=== PATIENT | female | born 1995 | race African-American/Black ===

== ENCOUNTER 2016-09-28 23:23 | Emergency (ER) | payer BC ==
[~2016-09-28] VITALS: Ht 162.6 cm; Wt 123.4 kg
[~2016-09-28 23:23] MED LIST: AMOX500C2 PO; CEFD300C3 PO; CEPH-507 PO; CEPH500C PO; CIPR500T78 PO; CLIN300C11 PO; CLIN300C3 PO; FLC100T1 PO; FLUC150T PO; HYDR-3812 PO; IBUP-1780 PO; INSU100I14 SC; INSU100I14 SQ; INSU100I29 SC; INSU100V16 SQ; INSU100V5 SQ; LEVE1U SQ; LISI10TA; MAGN400T6 PO; METF-380 PO; MNTL10T; NEOM10SO20 EACH EAR; NYST15CR3 TOP; RANI150T66; RSP2T PO; SERT50TA PO; SULF1TAB35 PO; TPR25T PO; ZPR80C PO
--- NOTE | 2016-09-28 23:39 | ED Lower Extremity ---
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 Has a laceration to the lateral aspect the sole of foot. No other injury Allergies and Home Medications Allergies Coded Allergies: vancomycin (Unverified Allergy, Unknown, 02/27/16) Home Medications Insulin Aspart 300 Units/3 Ml Solution, 25 UNITS SC AC, (Reported) Insulin Detemir 100 Unit/1 Ml Insuln.pen, 35 UNITS SC BID, (Reported) Constitutional: no symptoms reported Respiratory: no symptoms reported Skin: see HPI Past Iqgmqpn-Eaivmq-Gclifo Hx Patient Social History Recent Foreign Travel: No Contact w/Someone Who Travel: No Recent Hopitalizations: No Immunizations Up To Date PED Vaccines UTD: Yes Date of Pneumonia Vaccine: October 15, 2012 Date of Influenza Vaccine: Mar 02, 2016 Seasonal Allergies Seasonal Allergies: Yes Surgeries HX Surgeries: Yes (LEFT HIP, PLASTIC SURGERY TO FACE SECONDARY TO DOG BITE- "OVER 200 STITCHES") Surgeries: Orthopedic, Tonsillectomy Respiratory Hx Respiratory Disorders: No Cardiovascular Hx Cardiac Disorders: Yes (STOPPED BP MEDS 4 YRS AGO) Cardiac Disorders: Hypertension Neurological Hx Neurological Disorders: No Reproductive System Hx Reproductive Disorders: Yes (MISCARRIAGES) Female Reproductive Disorders: Denies Genitourinary Hx Genitourinary Disorders: No Gastrointestinal Hx Gastrointestinal Disorders: No Musculoskeletal Hx Musculoskeletal Disorders: Yes (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) Endocrine Hx Endocrine Disorders: Yes (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, MORBID OBESTIY) Endocrine Disorders: Diabetes, Insulin dep HEENT HX ENT Disorders: Yes (S/P TONSILLECTOMY) HEENT Disorders: Tonsilitis Cancer Hx Cancer: No Psychosocial Hx Psychiatric Problems: Yes Behavioral Health Disorders: Anxiety, Bipolar, Depression Integumentary HX Skin/Integumentary Disorder: No Blood Transfusions Hx Blood Disorders: No Adverse Reaction to a Blood Tr: No Reviewed Nursing Assessment Reviewed/Agree w Nursing PMH: Yes Family Medical History Significant Family History: Diabetes, Hypertension, Vascular Disease Family Medial History: Alcoholism Arthritis Asthma Cardiovascular disease Colon cancer Diabetes mellitus Hypertension Psychosocial problem Respiratory disorder Visual disorder Physical Exam Vital Signs Vital Sign - Last 12Hours 09/28/16 23:41 Temp 97.6 Pulse 125 Resp 18 B/P (MAP) 141/91 Pulse Ox 96 O2 Delivery Room Air Capillary Refill : General Appearance: WD/WN, no apparent distress Cardiovascular: regular rate, rhythm Respiratory: no respiratory distress Feet: left foot pain, left foot soft tissue tenderness, left foot swelling ( 2.5 cm laceration to the lateral aspect of the sole of the left foot.) Neurologic/Psychiatric: alert, normal mood/affect Skin: normal color Laceration Repair : Wound Location: Lower Extremities Other Wound Location Left foot Wound's Depth, Shape: sub Q Wound Explored: no foreign body removed Betadine Prep?: Yes Anesthesia: 1% Lidocaine Volume Anesthetic (ccs): 5 Wound Debrided: moderate Suture: Ethlion Suture Size: 4-0 Number of Sutures: 3 Sterile Dressing Applied?: Yes Progress Wound was prepped with Betadine. Irrigated with normal saline. It probes foreign body (no foreign body located). X-ray showed no foreign body. Wound closed with 3 4-0 nylon sutures. Progress/Results/Core Measures Results/Orders My Orders Orders - JOSE A PACK MD Foot, Left, 3 Views (09/28/16 23:35) Dipht,Pertuss(Acell),Tet Adult (Boostrix (09/28/16 23:45) Lidocaine 1% Injection (Xylocaine 1% Inj (09/29/16 00:45) Lidocaine 1% Injection (Xylocaine 1% Inj (09/29/16 00:34) Medications Given in ED Current Medications Medications Dose Ordered Sig/Samuel Route Start Time Stop Time Status Last Admin Dose Admin Diphtheria/ Tetanus/Acell Pertussis 0.5 ml ONCE ONCE IM 09/28/16 23:45 09/28/16 23:47 DC 09/29/16 00:24 0.5 ML Lidocaine HCl 20 ml ONCE ONCE INJ 09/29/16 00:45 09/29/16 00:46 DC 09/29/16 00:40 20 ML Vital Signs/I&O Vital Sign - Last 12Hours 09/28/16 23:41 Temp 97.6 Pulse 125 Resp 18 B/P (MAP) 141/91 Pulse Ox 96 O2 Delivery Room Air Departure Impression Impression: Primary Impression: Laceration of left foot Disposition: HOME, SELF-CARE Condition: Stable Departure-Patient Inst. Decision time for Depature: 00:50 Referrals: NO,LOCAL PHYSICIAN (PCP/Family) Primary Care Physician Patient Instructions: Laceration Repair With Stitches (DC) Add. Discharge Instructions: Keep foot elevated, bandaged, clean and dry. JOSE A PACK MD Sep 28, 2016 23:39
[2016-09-28] MEDS ORDERED: TETANUS,DIPTH,PERTUSS P/F (BOOSTRIX) 0.5 ML VIAL IM ONE (23:45)
[2016-09-29] MEDS ORDERED: LIDOCAINE 1% INJ 20 ML (XYLOCAINE) VIAL ONE (00:34)
[2016-09-29] MEDS ORDERED: LIDOCAINE 1% INJ 20 ML (XYLOCAINE) VIAL INJ ONE (00:45)
[2016-09-29 01:07] VITALS: BP 136/87
--- NOTE | 2016-09-29 07:02 | Diagnostic Imaging Report ---
INDICATION: Soft tissue laceration to the left heel. DISCUSSION: Three views of the left foot were obtained, no comparison. No radiopaque foreign body identified. Soft tissue laceration noted along the plantar aspect of the left foot. Benign soft tissue calcifications are noted within the anterior left lower extremity. No acute fracture or dislocation identified. No significant degenerative disease. IMPRESSION: 1. Soft tissue laceration involving the plantar aspect of the left foot. No radiopaque foreign body or acute osseous abnormality identified otherwise. Dictated by: Dictated on workstation # [id number]
== END 2016-09-29 01:07 | disposition home or self-care (01) ==
LOC: EDUNIT# 23:23 → ER 23:27
DX: S91.312A Laceration without foreign body, left foot, initial encounter (principal); Z23 Encounter for immunization; E11.9 Type 2 diabetes mellitus without complications; Z79.4 Long term (current) use of insulin; E66.01 Morbid (severe) obesity due to excess calories; W25.XXXA Contact with sharp glass, initial encounter; Y99.8 Other external cause status
CPT/HCPCS: 12042; 73630; 90471; 90715

== ENCOUNTER 2016-10-11 11:37 | Emergency (ER) | payer BC ==
[~2016-10-11] VITALS: Ht 160 cm; Wt 99.8 kg
[2016-10-11 11:53] VITALS: BP 135/89
== END 2016-10-11 11:53 | disposition home or self-care (01) ==
LOC: EDUNIT# 11:37 → ER 11:39
DX: S91.312D Laceration without foreign body, left foot, subsequent encounter (principal)

== ENCOUNTER 2016-12-22 17:55 | Emergency (ER) | payer BC ==
[~2016-12-22] VITALS: Ht 162.6 cm; Wt 129.7 kg
[2016-12-22] MEDS ORDERED: RX-CIPROFLOXACIN (CILOXAN) 0.3% OP SOLN 2.5 ML ONE (18:31)
--- NOTE | 2016-12-22 18:32 | ED EENT ---
History of Present Illness General Stated Complaint: LT EAR PAIN/PRESSURE Source: patient Exam Limitations: no limitations History of Present Illness Time seen by provider: 18:27 Initial Comments To ER with left ear pain for the past 3 days. No fevers or chills. Timing/Duration: abrupt Severity: moderate Location: ear (R) Associated Symptoms: denies symptoms Allergies and Home Medications Allergies Coded Allergies: vancomycin (Unverified Allergy, Unknown, 02/27/16) Home Medications Insulin Aspart 300 Units/3 Ml Solution, 25 UNITS SC AC, (Reported) Insulin Detemir 100 Unit/1 Ml Insuln.pen, 35 UNITS SC BID, (Reported) Review of Systems Constitutional: see HPI, No chills Eyes: No Symptoms Reported Ears: See HPI Nose: no symptoms reported Mouth: no symptoms reported Throat: no symptoms reported Respiratory: no symptoms reported Cardiovascular: no symptoms reported Musculoskeletal: no symptoms reported Past Vpkhvtw-Uplntc-Tseutw Hx Patient Social History 2nd Hand Smoke Exposure: No Recent Foreign Travel: No Contact w/Someone Who Travel: No Recent Hopitalizations: No Immunizations Up To Date Tetanus Booster (TDap): Unknown PED Vaccines UTD: Yes Date of Pneumonia Vaccine: October 15, 2012 Date of Influenza Vaccine: Mar 02, 2016 Seasonal Allergies Seasonal Allergies: Yes Surgeries HX Surgeries: Yes (LEFT HIP, PLASTIC SURGERY TO FACE SECONDARY TO DOG BITE- "OVER 200 STITCHES") Surgeries: Orthopedic, Tonsillectomy Respiratory Hx Respiratory Disorders: No Cardiovascular Hx Cardiac Disorders: Yes (STOPPED BP MEDS 4 YRS AGO) Cardiac Disorders: Hypertension Neurological Hx Neurological Disorders: No Reproductive System Hx Reproductive Disorders: Yes (MISCARRIAGES) Female Reproductive Disorders: Denies Genitourinary Hx Genitourinary Disorders: No Gastrointestinal Hx Gastrointestinal Disorders: No Musculoskeletal Hx Musculoskeletal Disorders: Yes (Qwfh-tqtcc-knnzatd 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) Endocrine Hx Endocrine Disorders: Yes (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, MORBID OBESTIY) Endocrine Disorders: Diabetes, Insulin dep HEENT HX ENT Disorders: Yes (S/P TONSILLECTOMY) HEENT Disorders: Tonsilitis Cancer Hx Cancer: No Psychosocial Hx Psychiatric Problems: Yes Behavioral Health Disorders: Anxiety, Bipolar, Depression Integumentary HX Skin/Integumentary Disorder: No Blood Transfusions Hx Blood Disorders: No Adverse Reaction to a Blood Tr: No Family Medical History Significant Family History: Diabetes, Hypertension, Vascular Disease Family Medial History: Alcoholism Arthritis Asthma Cardiovascular disease Colon cancer Diabetes mellitus Hypertension Psychosocial problem Respiratory disorder Visual disorder Physical Exam Vital Signs Vital Sign - Last 12Hours 12/22/16 12/22/16 18:25 18:48 Temp 98.0 Pulse 110 Resp 18 B/P (MAP) 157/88 Pulse Ox 99 General Appearance: WD/WN, no apparent distress Eyes: bilateral eye EOMI, bilateral eye PERRL, bilateral eye normal inspection Ears: right ear canal normal (the left external ear canal is swollen and very tender. The tympanic membrane is normal in appearance.), bilateral ear TM normal, bilateral ear auricle normal Mouth/Throat: normal mouth inspection, pharynx normal Neck: non-tender, full range of motion Respiratory: chest non-tender, lungs clear, normal breath sounds Gastrointestinal: normal bowel sounds, non tender, soft Neurologic/Psychiatric: alert, normal mood/affect, oriented x 3 Skin: normal color, warm/dry Laceration Repair : Suture Size: 4-0 Progress/Results/Core Measures Results/Orders My Orders Orders - ALEJANDRO TY APRN Ciprofloxacin 0.3% Ophth Soln (Ciloxan 0 (12/22/16 18:45) Rx-Ciprofloxacin Ophth Soln (Rx-Ciloxan (12/22/16 18:31) Departure Impression Impression: Primary Impression: Otitis externa Disposition: 01 HOME, SELF-CARE Condition: Stable Departure-Patient Inst. Decision time for Depature: 18:28 Referrals: NO,LOCAL PHYSICIAN (PCP) Primary Care Physician Patient Instructions: Outer Ear Infection Add. Discharge Instructions: 1. Return to ER for any concerns 2. Remove the ear wick tomorrow morning. Use the eardrops as directed ALEJANDRO TY APRN Dec 22, 2016 18:32
[2016-12-22] MEDS ORDERED: CIPROFLOXACIN 0.3% (CILOXAN) 2.5 ML BTL OP SCH (18:45)
[2016-12-22 18:48] VITALS: BP 157/88
== END 2016-12-22 18:48 | disposition home or self-care (01) ==
LOC: EDUNIT# 17:55 → ER 17:58
DX: H60.92 Unspecified otitis externa, left ear (principal); F41.9 Anxiety disorder, unspecified; F31.9 Bipolar disorder, unspecified; E13.10 Other specified diabetes mellitus with ketoacidosis without coma; E66.9 Obesity, unspecified; Z98.890 Other specified postprocedural states; Z90.89 Acquired absence of other organs; Z79.82 Long term (current) use of aspirin; Z68.42 Body mass index [BMI] 45.0-49.9, adult
CPT/HCPCS: 99283

== ENCOUNTER 2017-03-11 16:42 | Emergency (ER) | payer SELFPAY ==
[~2017-03-11] VITALS: Ht 162.6 cm; Wt 129.7 kg
--- NOTE | 2017-03-11 17:57 | ED General ---
General Chief Complaint: Glucose Problems Stated Complaint: HIGH BLOOD SUGAR Nursing Triage Note: PT REPORTS HIGH BLOOD SUGAR. SHE STATES HER GLUCOMETER IS BROKEN. SHE STATES SHE HAS BEEN TAKING HER INSULIN PRESCRIBED. Nursing Sepsis Screen: No Definite Risk Source of Information: Patient Exam Limitations: No Limitations History of Present Illness Time Seen by Provider: 17:57 Initial Comments 21 yo female patient presents to the ED with c/o elevated blood sugars. Patient reports her glucometer has been broken "for a little while." States she has been taking her insulin as prescribed by her physician. Has not followed up with her PCP for contacted them for fever and glucometer. Patient reports polydipsia and polyuria. Timing/Duration: Getting Worse Modifying Factors: worse with Medication (no improvement with insulin) Allergies and Home Medications Allergies Coded Allergies: vancomycin (Unverified Allergy, Unknown, 02/27/16) Home Medications Insulin Aspart 300 Units/3 Ml Solution, 25 UNITS SC AC, (Reported) Insulin Detemir 100 Unit/1 Ml Insuln.pen, 35 UNITS SC BID, (Reported) Constitutional: No chills, No dizziness, No fever, No malaise EENTM: no symptoms reported Respiratory: No cough, No short of breath Cardiovascular: No chest pain, No palpitations Gastrointestinal: see HPI, No abdominal pain, No constipation, No diarrhea, No nausea, No vomiting, other (polydipsia) Genitourinary: No dysuria, frequency, No hematuria, other (polyuria) Musculoskeletal: no symptoms reported Skin: no symptoms reported Psychiatric/Neurological: No Symptoms Reported All Other Systems Reviewed Negative Unless Noted: Yes (Negative excepted noted.) Past Pzucnaz-Dlxzdx-Osolmt Hx Patient Social History Alcohol Use: Occasionally Uses Number of Drinks Today: AA Alcohol Beverage of Choice: Beer Recreational Drug Use: No Smoking Status: Never a Smoker 2nd Hand Smoke Exposure: No Recent Foreign Travel: No Contact w/Someone Who Travel: No Recent Infectious Disease Expo: No Recent Hopitalizations: No Physical Abuse: No Sexual Abuse: No Immunizations Up To Date Tetanus Booster (TDap): Unknown PED Vaccines UTD: Yes Date of Pneumonia Vaccine: October 15, 2012 Date of Influenza Vaccine: Mar 02, 2016 Seasonal Allergies Seasonal Allergies: Yes Surgeries History of Surgeries: Yes (LEFT HIP, PLASTIC SURGERY TO FACE SECONDARY TO DOG BITE-"OVER 200 STITCHES") Surgeries: Orthopedic, Tonsillectomy Respiratory History of Respiratory Disorde: No Cardiovascular History of Cardiac Disorders: Yes (STOPPED BP MEDS 4 YRS AGO) Cardiac Disorders: Hypertension Neurological History of Neurological Disord: No Reproductive System Hx Reproductive Disorders: Yes (MISCARRIAGES) Female Reproductive Disorders: Denies Gastrointestinal History of Gastrointestinal Di: No Musculoskeletal History of Musculoskeletal Dis: Yes (Ygdu-glnfj-hoenaka 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) Endocrine History of Endocrine Disorders: Yes (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, MORBID OBESTIY) Endocrine Disorders: Diabetes, Insulin dep HEENT History of HEENT Disorders: No HEENT Disorders: Tonsilitis Cancer History of Cancer: No Psychosocial History of Psychiatric Problem: Yes Behavioral Health Disorders: Anxiety, Bipolar, Depression Suicide Risk Score: 0 Integumentary History of Skin or Integumenta: No Blood Transfusions History of Blood Disorders: No Adverse Reaction to a Blood Tr: No Reviewed Nursing Assessment Reviewed/Agree w Nursing PMH: Yes Family Medical History Significant Family History: Diabetes, Hypertension, Vascular Disease Family Medial History: Alcoholism Arthritis Asthma Cardiovascular disease Colon cancer Diabetes mellitus Hypertension Psychosocial problem Respiratory disorder Visual disorder Physical Exam Vital Signs Vital Sign - Last 12Hours 03/11/17 17:35 Temp 97.2 Pulse 86 Resp 20 B/P (MAP) 144/99 Pulse Ox 99 O2 Delivery Room Air Capillary Refill : Less Than 3 Seconds General Appearance: No Apparent Distress, WD/WN, Obese HEENT: PERRL/EOMI, Pharynx Normal Neck: Normal Inspection, Supple Respiratory: Lungs Clear, Normal Breath Sounds, No Accessory Muscle Use, No Respiratory Distress Cardiovascular: Regular Rate, Rhythm, No Edema, No Murmur, Normal Peripheral Pulses Gastrointestinal: Normal Bowel Sounds, No Organomegaly, Non Tender, Soft Back: Normal Inspection, No CVA Tenderness Extremity: Normal Capillary Refill, No Calf Tenderness, No Pedal Edema Neurologic/Psychiatric: Alert, Oriented x3, Normal Mood/Affect Skin: Normal Color, Warm/Dry Laceration Repair : Suture Size: 4-0 Progress/Results/Core Measures Results/Orders Lab Results Laboratory Tests Test 03/11/17 17:37 03/11/17 18:15 03/11/17 19:28 Range/Units Glucometer 496 *H 193 H 70-110 MG/DL White Blood Count 11.4 H 4.3-11.0 10^3/uL Red Blood Count 5.34 4.35-5.85 10^6/uL Hemoglobin 13.9 11.5-16.0 G/DL Hematocrit 41 35-52 % Mean Corpuscular Volume 76 L 80-99 FL Mean Corpuscular Hemoglobin 26 25-34 PG Mean Corpuscular Hemoglobin Concent 34 32-36 G/DL Red Cell Distribution Width 13.3 10.0-14.5 % Platelet Count 385 130-400 10^3/uL Mean Platelet Volume 11.5 H 7.4-10.4 FL Neutrophils (%) (Auto) 65 42-75 % Lymphocytes (%) (Auto) 28 12-44 % Monocytes (%) (Auto) 6 0-12 % Eosinophils (%) (Auto) 1 0-10 % Basophils (%) (Auto) 0 0-10 % Neutrophils # (Auto) 7.4 1.8-7.8 X 10^3 Lymphocytes # (Auto) 3.2 1.0-4.0 X 10^3 Monocytes # (Auto) 0.7 0.0-1.0 X 10^3 Eosinophils # (Auto) 0.1 0.0-0.3 10^3/uL Basophils # (Auto) 0.0 0.0-0.1 10^3/uL Urine Color YELLOW Urine Clarity CLEAR Urine pH 5 5-9 Urine Specific [place] 1.010 L 1.016-1.022 Urine Protein NEGATIVE NEGATIVE Urine Glucose (UA) 4+ H NEGATIVE Urine Ketones NEGATIVE NEGATIVE Urine Nitrite NEGATIVE NEGATIVE Urine Bilirubin NEGATIVE NEGATIVE Urine Urobilinogen NORMAL NORMAL MG/DL Urine Leukocyte Esterase 1+ H NEGATIVE Urine RBC (Auto) NEGATIVE NEGATIVE Urine RBC NONE /HPF Urine WBC NONE /HPF Urine Squamous Epithelial Cells 2-5 /HPF Urine Crystals NONE /LPF Urine Bacteria TRACE /HPF Urine Casts NONE /LPF Urine Mucus NEGATIVE /LPF Urine Culture Indicated NO Urine Test NEGATIVE NEGATIVE Sodium Level 129 L 135-145 MMOL/L Potassium Level 3.7 3.6-5.0 MMOL/L Chloride Level 97 L 98-107 MMOL/L Carbon Dioxide Level 22 21-32 MMOL/L Anion Gap 10 5-14 MMOL/L Blood Urea Nitrogen 7 7-18 MG/DL Creatinine 0.77 0.60-1.30 MG/DL Estimat Glomerular Filtration Rate > 60 BUN/Creatinine Ratio 9 Glucose Level 504 *H 70-105 MG/DL Calcium Level 9.5 8.5-10.1 MG/DL Total Bilirubin 0.3 0.1-1.0 MG/DL Aspartate Amino Transf (AST/SGOT) 5 5-34 U/L Alanine Aminotransferase (ALT/SGPT) 8 0-55 U/L Alkaline Phosphatase 125 40-136 U/L Total Protein 7.5 6.4-8.2 GM/DL Albumin 3.9 3.2-4.5 GM/DL My Orders Orders - TOMMY GUTIERREZ Accucheck Stat ONCE (03/11/17 17:36) Cbc With Automated Diff (03/11/17 17:46) Comprehensive Metabolic Panel (03/11/17 17:46) Ua Culture If Indicated (03/11/17 17:46) Saline Lock/Iv-Start (03/11/17 17:46) Ns Iv 1000 Ml (Sodium Chloride 0.9%) (03/11/17 17:46) Insulin (Regular) Human (Humulin R (Per (03/11/17 17:46) Hcg,Qualitative Urine (03/11/17 18:40) Accucheck Stat ONCE (03/11/17 18:55) Medications Given in ED Current Medications Medications Dose Ordered Sig/Samuel Route Start Time Stop Time Status Last Admin Dose Admin Sodium Chloride 1,000 ml @ 0 mls/hr Q0M ONCE IV 03/11/17 17:46 03/11/17 17:50 DC 03/11/17 18:26 0 MLS/HR Vital Signs/I&O Vital Sign - Last 12Hours 03/11/17 17:35 Temp 97.2 Pulse 86 Resp 20 B/P (MAP) 144/99 Pulse Ox 99 O2 Delivery Room Air Intake and Output 03/12/17 00:00 Intake Total 1000 ml Balance 1000 ml Blood Pressure Mean: 114 Point of Care Testing Finger Stick Blood Glucose: 496 Blood Glucose Action Taken: NOTIFIED Departure Communication (Admissions) Progress Notes All laboratory findings discussed with the patient. Patient was given 1 L normal saline and 10 units of Novolin insulin IV 1 dose. Last blood sugar noted to be 193. Plan for discharge to home with follow-up as an outpatient with her PCP in the next 1-2 days. Patient to call tomorrow morning for appointment time. All return precautions were discussed with the patient as described in the discharge instructions of this report. Patient voices understanding and agrees with the treatment plan. Impression Impression: Primary Impression: Diabetes mellitus with hyperglycemia Disposition: 01 HOME, SELF-CARE Condition: Improved Departure-Patient Inst. Decision time for Depature: 20:03 Referrals: NO,LOCAL PHYSICIAN (PCP) Primary Care Physician [facility] Patient Instructions: Diabetes Type 1, Adult (DC) Add. Discharge Instructions: All discharge instructions reviewed with patient and/or family. Voiced understanding. Continue usual home medications. Follow-up with [facility] in the next 1-2 days for recheck and for assistance in getting a new glucometer, call first thing in the morning for appointment time. Return to the emergency department for elevated blood sugars, dizziness, shortness of air, chest pain, vomiting, painful urination, inability urinate, or any other concerns. TOMMY GUTIERREZ Mar 11, 2017 17:57
[2017-03-11] MEDS: inSUlin (REGULAR) HUMAN 1 UNIT/0.01 ML (CHARGE PER UNIT) IV STA (18:25)
[2017-03-11 18:26] LABS: BASOPHILS % (AUTO) 0 % (0-10); BILIRUBIN,URINE NEGATIVE (NEGATIVE); EOSINOPHILS # (AUTO) 0.1 10^3/uL (0.0-0.3); EOSINOPHILS % (AUTO) 1 % (0-10); KETONES,URINE NEGATIVE (NEGATIVE); LEUKOCYTE ESTERASE ,URINE 1+ (NEGATIVE); LYMPHOCYTES # (AUTO) 3.2 X 10^3 (1.0-4.0); LYMPHOCYTES % (AUTO) 28 % (12-44); MEAN CORPUSCULAR HEMOGLOBIN 26 PG (25-34); MEAN CORPUSCULAR HGB CONC 34 G/DL (32-36); MEAN CORPUSCULAR VOLUME 76 FL (80-99); MEAN PLATELET VOLUME 11.5 FL (7.4-10.4); MONOCYTES # (AUTO) 0.7 X 10^3 (0.0-1.0); MONOCYTES % (AUTO) 6 % (0-12); NEUTROPHILS # (AUTO) 7.4 X 10^3 (1.8-7.8); NEUTROPHILS % (AUTO) 65 % (42-75); NITRITE,URINE NEGATIVE (NEGATIVE); PH,URINE 5 (5-9); PLATELET COUNT 385 10^3/uL (130-400); PROTEIN,URINE NEGATIVE (NEGATIVE); RED BLOOD COUNT 5.34 10^6/uL (4.35-5.85); RED CELL DISTRIBUTION WIDTH 13.3 % (10.0-14.5); UROBILINOGEN,URINE NORMAL (NORMAL); WHITE BLOOD COUNT 11.4 10^3/uL (4.3-11.0)
[2017-03-11] MEDS: NS IV 1000 ML 1,000 ML IV ONE (18:26)
[2017-03-11 18:44] LABS: ALANINE AMINOTRANSFERASE 8 U/L (0-55); ALBUMIN 3.9 GM/DL (3.2-4.5); ANION GAP 10 MMOL/L (5-14); ASPARTATE AMINO TRANSFERASE 5 U/L (5-34); BILIRUBIN,TOTAL 0.3 MG/DL (0.1-1.0); BLOOD UREA NITROGEN 7 MG/DL (7-18); BUN/CREATININE RATIO 9; CALCIUM 9.5 MG/DL (8.5-10.1); CARBON DIOXIDE 22 MMOL/L (21-32); CHLORIDE 97 MMOL/L (98-107); CREATININE SERUM 0.77 MG/DL (0.60-1.30); GFR ESTIMATED > 60; POTASSIUM 3.7 MMOL/L (3.6-5.0); SODIUM 129 MMOL/L (135-145); TOTAL PROTEIN 7.5 GM/DL (6.4-8.2)
[2017-03-11 18:47] LABS: GLUCOSE 504 MG/DL (70-105)
[2017-03-11 20:37] VITALS: BP 144/99
== END 2017-03-11 20:37 | disposition home or self-care (01) ==
LOC: EDUNIT# 16:42 → ER 16:44
DX: E11.65 Type 2 diabetes mellitus with hyperglycemia (principal); F41.9 Anxiety disorder, unspecified; F31.9 Bipolar disorder, unspecified; E66.01 Morbid (severe) obesity due to excess calories; I10 Essential (primary) hypertension; Z90.89 Acquired absence of other organs; Z79.4 Long term (current) use of insulin; Z68.42 Body mass index [BMI] 45.0-49.9, adult; Z82.49 Family history of ischemic heart disease and other diseases of the circulatory system
CPT/HCPCS: 36415; 80053; 81000; 82962; 84703; 85025; 96361; 96374

== ENCOUNTER 2018-11-24 18:57 | Emergency (ER) | payer SELFPAY ==
[~2018-11-24] VITALS: Ht 162.6 cm; Wt 158.8 kg
[~2018-11-24 18:57] MED LIST changes: +ACHD5005 PO; -HYDR-3812 PO
--- NOTE | 2018-11-24 19:35 | NUR ---
pt here by self. alert gcs 15. pt relates seen at [facility] last week for side pain and n/v.. dx uti and placed on zofran and keflex. pt c/o continued bilateral side pain rating 6 currently. also still c/o n/v x 2 today. also c/o " severe migraines" rating 7. pt also c/o blood in stool. pt c/o ua less then usual and denies other ua c/os. also c/o off and on vaginal pain and none now. denies other vaginal c/os. pt denies dypsnea and no acute sighns of dyspnea noted. lungs cta bilkaterally. abd soft nondistended though pt appears obese and overweight in abd. tender to palpation all quads except llq. pt to bathroom for ua and done bre pt at 1941.
--- NOTE | 2018-11-24 19:48 | NUR ---
bree did the ua hcg and sent ua to lab.
[2018-11-24 19:50] LABS: BILIRUBIN,URINE NEGATIVE (NEGATIVE); COLOR,URINE YELLOW; GLUCOSE, URINE (UA) 4+ (NEGATIVE); KETONES,URINE 1+ (NEGATIVE); LEUKOCYTE ESTERASE ,URINE NEGATIVE (NEGATIVE); NITRITE,URINE NEGATIVE (NEGATIVE); PH,URINE 6 (5-9); PROTEIN,URINE 4+ (NEGATIVE); UROBILINOGEN,URINE NORMAL (NORMAL)
[2018-11-24] MEDS ORDERED: NS IV 1000 ML 1,000 ML IV SCH (19:54)
[2018-11-24 19:59] LABS: BACTERIA,URINE TRACE /HPF; CLARITY,URINE SL CLOUDY; RBC,URINE RARE /HPF; SQUAMOUS EPITHELIAL CELL,UR 25-50 /HPF; WBC,URINE RARE /HPF
[2018-11-24] MEDS ORDERED: ONDANSETRON 4 MG/2 ML (SDV) Z0FRAN IVP ONE (20:00)
[2018-11-24 20:23] LABS: BASOPHILS % (AUTO) 0 % (0-10); EOSINOPHILS # (AUTO) 0.2 10^3/uL (0.0-0.3); EOSINOPHILS % (AUTO) 2 % (0-10); HEMATOCRIT 32 % (35-52); HEMOGLOBIN 10.8 G/DL (11.5-16.0); LYMPHOCYTES # (AUTO) 2.9 X 10^3 (1.0-4.0); LYMPHOCYTES % (AUTO) 23 % (12-44); MEAN CORPUSCULAR HEMOGLOBIN 25 PG (25-34); MEAN CORPUSCULAR HGB CONC 33 G/DL (32-36); MEAN CORPUSCULAR VOLUME 75 FL (80-99); MEAN PLATELET VOLUME 11.2 FL (7.4-10.4); MONOCYTES # (AUTO) 0.6 X 10^3 (0.0-1.0); MONOCYTES % (AUTO) 5 % (0-12); NEUTROPHILS # (AUTO) 8.7 X 10^3 (1.8-7.8); NEUTROPHILS % (AUTO) 70 % (42-75); PLATELET COUNT 419 10^3/uL (130-400); RED CELL DISTRIBUTION WIDTH 13.3 % (10.0-14.5); WHITE BLOOD COUNT 12.4 10^3/uL (4.3-11.0)
[2018-11-24 20:42] LABS: ALBUMIN 3.7 GM/DL (3.2-4.5); BILIRUBIN,TOTAL 0.2 MG/DL (0.1-1.0); CALCIUM 9.4 MG/DL (8.5-10.1); CREATININE SERUM 1.36 MG/DL (0.60-1.30); POTASSIUM 3.9 MMOL/L (3.6-5.0)
[2018-11-24] MEDS ORDERED: NS 100 ML (IVPB) BAG IV ONE (21:00)
[2018-11-24] MEDS ORDERED: IOHEXOL 350 MG/ML 150 ML (OMNIPAQUE 350) VIAL IV ONE (21:00)
[2018-11-24] MEDS ORDERED: HOLD METFORMIN - RECEIVED CONTRAST 20 ML VIAL IV SCH (21:00)
--- NOTE | 2018-11-24 21:17 | Diagnostic Imaging Report ---
PROCEDURE: CT abdomen and pelvis without contrast. TECHNIQUE: Multiple contiguous axial images were obtained through the abdomen and pelvis without the use of intravenous contrast. Auto Exposure Controls were utilized during the CT exam to meet ALARA standards for radiation dose reduction. INDICATION: Upper abdominal pain with nausea and vomiting Lung bases are clear. Liver appears normal. Gallbladder is present. Pancreas is normal. Spleen is not enlarged. Kidneys and adrenals appear normal. Small bowel is not dilated. Colon is unremarkable. Appendix is normal. Uterus is normal. Ovaries are normal. There is no intraperitoneal free air or free fluid. IMPRESSION: Negative CT abdomen and pelvis Dictated by: Dictated on workstation # [id number]
--- NOTE | 2018-11-24 21:24 | ED GI ---
General Chief Complaint: General Problems/Pain Stated Complaint: NAUSEA Nursing Triage Note: PT REPORTS BEING IN HOSPITAL TILL LAST THURSDAY FOR SEVERE NAUSEA AND INABLITY TO KEEP ANYTHING DOWN. PT NOW REPORTS THAT NAUSEA IS WORSE, MEDICATION IS GIVING HER A HEADACHE, AND SHE HAS BEEN HAVING BLOOD IN HER STOOLS FOR 2 DAYS. Sepsis Screen: No Definite Risk History of Present Illness Date Seen by Provider: Nov 24, 2018 Time Seen by Provider: 19:30 Initial Comments 23-year-old female presents for persistent nausea and elevated glucose. She has not followed by a primary care provider regularly. She is sexually active and is not tracking her cycles are using control. She reports labs being done last week and being discharged from [facility] in [place] for nausea, she was prescribed Zofran with minimal improvement in her symptoms. Timing/Duration: 1 Week Severity/Quality: Moderate Location: Generalized Abdomen Radiation: No Radiation Associated Symptoms: Heartburn, Nausea/Vomiting Allergies and Home Medications Allergies Coded Allergies: vancomycin (Unverified Allergy, Mild, 11/24/18) HIVES Home Medications Insulin Aspart 300 Units/3 Ml Solution, 25 UNITS SC AC, (Reported) Insulin Detemir 100 Unit/1 Ml Insuln.pen, 35 UNITS SC BID, (Reported) Prochlorperazine Maleate 10 Mg Tablet, 10 MG PO Q8H Prescribed by: PATSY JENSEN on 11/24/18 5714 Patient Home Medication List Home Medication List Reviewed: Yes Review of Systems Review of Systems Constitutional: no symptoms reported, see HPI Gastrointestinal: See HPI, Nausea, Poor Fluid Intake, Vomiting All Other Systems Reviewed Negative Unless Noted: Yes Past Ecfcggk-Gxtggl-Uedfkj Hx Past Med/Social Hx: Reviewed Nursing Past Med/Soc Hx Patient Social History Alcohol Use: Denies Use Alcohol Beverage of Choice: Beer Recreational Drug Use: No Smoking Status: Never a Smoker 2nd Hand Smoke Exposure: No Recent Foreign Travel: No Contact w/Someone Who Travel: No Recent Infectious Disease Expo: No Recent Hopitalizations: Yes (DC'D ON 11/17/18) Physical Abuse: No Sexual Abuse: No Immunizations Up To Date Tetanus Booster (TDap): Unknown PED Vaccines UTD: Yes Date of Pneumonia Vaccine: October 15, 2012 Date of Influenza Vaccine: Mar 02, 2016 Seasonal Allergies Seasonal Allergies: Yes Past Medical History Surgeries: Yes (LEFT HIP, PLASTIC SURGERY TO FACE SECONDARY TO DOG BITE-"OVER 200 STITCHES") Orthopedic, Tonsillectomy Respiratory: No Cardiac: Yes Hypertension Neurological: No Reproductive Disorders: Yes (MISCARRIAGES) Female Reproductive Disorders: Denies Gastrointestinal: No Musculoskeletal: Yes (Xhbp-ojzip-twhuqik 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) Endocrine: Yes (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, MORBID OBESTIY) Diabetes, Insulin dep HEENT: No Tonsilitis Cancer: No Psychosocial: Yes Anxiety, Bipolar, Depression Integumentary: No Blood Disorders: No Adverse Reaction/Blood Tranf: No Family Medical History Alcoholism Arthritis Asthma Cardiovascular disease Colon cancer Diabetes mellitus Hypertension Psychosocial problem Respiratory disorder Visual disorder Diabetes, Hypertension, Vascular Disease Physical Exam Vital Signs Vital Signs - First Documented 11/24/18 11/24/18 19:24 21:37 Temp 97.2 Pulse 97 Resp 16 B/P (MAP) 154/124 (134) Pulse Ox 98 O2 Delivery Room Air Capillary Refill : Less Than 3 Seconds Height/Weight/BMI Height: 5'4.00" Weight: 350lbs. 0.0oz. 158.938069nw; 35.15 BMI Method:Stated General Appearance: WD/WN, no apparent distress HEENT: PERRL/EOMI, normal ENT inspection, TMs normal, pharynx normal, other (oral mucosa pink and moist.) Neck: non-tender, full range of motion, supple, normal inspection Respiratory: chest non-tender, lungs clear, normal breath sounds Cardiovascular: normal peripheral pulses, regular rate, rhythm Gastrointestinal: normal bowel sounds, non tender, soft; No distended, No guarding, No rebound, No tenderness Neurologic/Psychiatric: no motor/sensory deficits, alert, normal mood/affect, oriented x 3 Skin: normal color, warm/dry Procedures/Interventions Suture Size: 4-0 Progress/Results/Core Measures Results/Orders Lab Results Laboratory Tests Test 11/24/18 19:44 11/24/18 20:13 11/24/18 20:20 Range/Units Urine Color YELLOW Urine Clarity SL CLOUDY Urine pH 6 5-9 Urine Specific Cooper 1.025 H 1.016-1.022 Urine Protein 4+ NEGATIVE Urine Glucose (UA) 4+ H NEGATIVE Urine Ketones 1+ H NEGATIVE Urine Nitrite NEGATIVE NEGATIVE Urine Bilirubin NEGATIVE NEGATIVE Urine Urobilinogen NORMAL NORMAL MG/DL Urine Leukocyte Esterase NEGATIVE NEGATIVE Urine RBC (Auto) 1+ H NEGATIVE Urine RBC RARE /HPF Urine WBC RARE /HPF Urine Squamous Epithelial Cells 25-50 H /HPF Urine Crystals NONE /LPF Urine Bacteria TRACE /HPF Urine Casts NONE /LPF Urine Mucus NEGATIVE /LPF Urine Culture Indicated NO White Blood Count 12.4 H 4.3-11.0 10^3/uL Red Blood Count 4.29 L 4.35-5.85 10^6/uL Hemoglobin 10.8 L 11.5-16.0 G/DL Hematocrit 32 L 35-52 % Mean Corpuscular Volume 75 L 80-99 FL Mean Corpuscular Hemoglobin 25 25-34 PG Mean Corpuscular Hemoglobin Concent 33 32-36 G/DL Red Cell Distribution Width 13.3 10.0-14.5 % Platelet Count 419 H 130-400 10^3/uL Mean Platelet Volume 11.2 H 7.4-10.4 FL Neutrophils (%) (Auto) 70 42-75 % Lymphocytes (%) (Auto) 23 12-44 % Monocytes (%) (Auto) 5 0-12 % Eosinophils (%) (Auto) 2 0-10 % Basophils (%) (Auto) 0 0-10 % Neutrophils # (Auto) 8.7 H 1.8-7.8 X 10^3 Lymphocytes # (Auto) 2.9 1.0-4.0 X 10^3 Monocytes # (Auto) 0.6 0.0-1.0 X 10^3 Eosinophils # (Auto) 0.2 0.0-0.3 10^3/uL Basophils # (Auto) 0.0 0.0-0.1 10^3/uL Sodium Level 135 135-145 MMOL/L Potassium Level 3.9 3.6-5.0 MMOL/L Chloride Level 105 98-107 MMOL/L Carbon Dioxide Level 21 21-32 MMOL/L Anion Gap 9 5-14 MMOL/L Blood Urea Nitrogen 14 7-18 MG/DL Creatinine 1.36 H 0.60-1.30 MG/DL Estimat Glomerular Filtration Rate 58 BUN/Creatinine Ratio 10 Glucose Level 236 H 70-105 MG/DL Calcium Level 9.4 8.5-10.1 MG/DL Corrected Calcium 9.6 8.5-10.1 MG/DL Total Bilirubin 0.2 0.1-1.0 MG/DL Aspartate Amino Transf (AST/SGOT) 7 5-34 U/L Alanine Aminotransferase (ALT/SGPT) 9 0-55 U/L Alkaline Phosphatase 114 40-136 U/L Total Protein 7.0 6.4-8.2 GM/DL Albumin 3.7 3.2-4.5 GM/DL Glucometer 246 H 70-110 MG/DL My Orders Orders - PATSY JENSEN Urine Bedside (11/24/18 19:03) Ua Culture If Indicated (11/24/18 19:03) Accucheck Stat ONCE (11/24/18 19:54) Ondansetron Injection (Zofran Injectio (11/24/18 20:00) Ed Iv/Invasive Line Start (11/24/18 19:54) Ns Iv 1000 Ml (Sodium Chloride 0.9%) (11/24/18 19:54) Cbc With Automated Diff (11/24/18 19:54) Comprehensive Metabolic Panel (11/24/18 19:54) Iohexol Injection (Omnipaque 350 Mg/Ml 1 (11/24/18 21:00) Received Contrast (Hold Metformin- Contr (11/24/18 21:00) Ns (Ivpb) (Sodium Chloride 0.9% Ivpb Bag (11/24/18 21:00) Ct Abdomen/Pelvis Wo (11/24/18 20:58) Medications Given in ED Current Medications Medications Dose Ordered Sig/Samuel Route Start Time Stop Time Status Last Admin Dose Admin Ondansetron HCl 4 mg ONCE ONCE IVP 11/24/18 20:00 11/24/18 20:01 DC 11/24/18 20:16 4 MG Vital Signs/I&O 11/24/18 11/24/18 11/24/18 19:24 21:37 21:55 Temp 97.2 97.9 97.6 Pulse 97 80 89 Resp 16 16 18 B/P (MAP) 154/124 (134) 137/88 (104) 151/99 (116) Pulse Ox 98 100 99 O2 Delivery Room Air Room Air Blood Pressure Mean: 134 FSBG Bedside Testing Finger Stick Blood Glucose: 246 Blood Glucose Action Taken: Dr Jensen notified Progress Progress Note : Time: 19:30 Progress Note Patient seen and evaluated, will obtain Accu-Chek, labs. 1944 Accu-Chek 246, will give normal saline 1 L. Patient reports her glucose has been elevated since she had the urinary tract infection diagnosed a week ago. Zofran 4 mg for nausea. 2014 labs with slightly elevated WBC, will get CT abdomen and pelvis. HCG is negative. 2114 CT study essentially normal. The patient does report improvement in her symptoms, discharge instructions and return precautions reviewed with her. She will continue to monitor her glucose and adjust her insulin as needed. Diagnostic Imaging Diagonstic Imaging: CT Plain Films/CT/US/NM/MRI: abdomen, pelvis Comments NAME: [facility] REC#: [id number] PT STATUS: REG ER : 1995 PHYSICIAN: PATSY JENSEN ADMIT DATE: 11/24/18/ER Draft Date of Exam:11/24/18 CT ABDOMEN/PELVIS WO PROCEDURE: CT abdomen and pelvis without contrast. TECHNIQUE: Multiple contiguous axial images were obtained through the abdomen and pelvis without the use of intravenous contrast. Auto Exposure Controls were utilized during the CT exam to meet ALARA standards for radiation dose reduction. INDICATION: Upper abdominal pain with nausea and vomiting Lung bases are clear. Liver appears normal. Gallbladder is present. Pancreas is normal. Spleen is not enlarged. Kidneys and adrenals appear normal. Small bowel is not dilated. Colon is unremarkable. Appendix is normal. Uterus is normal. Ovaries are normal. There is no intraperitoneal free air or free fluid. IMPRESSION: Negative CT abdomen and pelvis Dictated on workstation # [id number] Dict: 11/24/182111 Trans: 11/24/182116 [facility] [id number] Interpreted by: MIN DYER MD Electronically signed by: Reviewed: Reviewed by Me Departure Impression Primary Impression: Nausea & vomiting Qualified Codes: G43.A1 - Cyclical vomiting, intractable Additional Impression: Diabetes mellitus Qualified Codes: E11.9 - Type 2 diabetes mellitus without complications Disposition: HOME, SELF-CARE Condition: Improved Departure-Patient Inst. Decision time for Depature: 21:15 Referrals: NO,LOCAL PHYSICIAN (PCP/Family) Primary Care Physician Patient Instructions: Nausea and Vomiting, Adult Add. Discharge Instructions: Small frequent meals. Clear liquid diet with nauseous. Establish care with Dr. He GRE[facility] AND TALLOW PUMPER at [facility]. Use the Compazine as needed for nausea and vomiting. Begin taking a vitamin. Adjust your insulin as needed for your blood sugars. Return to emergency department for new, urgent health care problems. All discharge instructions reviewed with patient and/or family. Voiced understanding. Scripts Prochlorperazine Maleate (Compazine) 10 Mg Tablet 10 MG PO Q8H, #12 TAB 0 Refills Prov: PATSY JENSEN 11/24/18 PATSY JENSEN Nov 24, 2018 21:24
--- NOTE | 2018-11-24 21:36 | NUR ---
PT REMAINS HERE BY SELF ALERT GCS 15. ABD PAIN CONTINUES RATING 6. STILL C/O NASUEA AND NO V/D NOTED IN ER VISIT THUSF AR. DENIES DYSPNEA AND NO ACUTE SIGHNS OF DYSPNEA NOTED. AWAITING CT RESULT.
[2018-11-24 21:37] VITALS: BP 137/88
[2018-11-24] MEDS ORDERED: PROC-1 PO (21:53)
[2018-11-24 21:55] VITALS: BP 151/99
--- NOTE | 2018-11-24 22:12 | NUR ---
someone else d/cd pt.
--- OUTSIDE RECORDS SUMMARY | 2018-11-24 23:47 | XMS REPORT | Clinical Summary ---
Author Author [facility] Organization [facility] Address Unknown Phone Unavailable Care Team Providers Care Veterinary Livestock Inspector Name Role Phone PCP Unavailable Allergies Not on File Current Medications Not on file Active Problems Not on file Social History Tobacco Use Types Packs/Day Years Used Date Never Assessed Sex Assigned at Date Recorded Not on file Last Filed Vital Signs Not on file Plan of Treatment Not on file Results Not on filefrom Last 3 Months
--- OUTSIDE RECORDS SUMMARY | 2018-11-24 23:47 | XMS REPORT ---
Author Author Migration, Doctor Organization [facility] Address Unknown Phone Unavailable Care Team Providers Care Reel Slitter Name Role Phone Migration, Doctor Unavailable Unavailable PROBLEMS Type Condition ICD9-CM Code HRT96-MW Code Onset Dates Condition Status SNOMED Code Problem retirement current use of insulin Z79.4 Active [id number] Problem Type 2 diabetes mellitus without 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.9 Active [id number] ALLERGIES No Information ENCOUNTERS Encounter Location Date Diagnosis [facility] [id number] [place] [id number] May, [place] [id number] [place] [address] Mar, [facility] [id number] [place] [address] Mar, [facility] [id number] [place] [address] Feb, [facility] [id number] [place] [address] Feb, [facility] [id number] [place] [address] Feb, Cellulitis of chest wall L03.313 ; Type 2 diabetes mellitus without 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 [facility] [id number] [place] [address] Feb, [facility] [id number] [place] [address] Feb, [facility] [id number] [place] [address] Jun, External otitis of left ear H60.92 and Skin infection L08.9 [facility] [id number] [place] [address] Jun, [facility] [address] [id number] [place] [address] 29 Sep, 2014 [facility] [place] [facility] [address] [id number] [place] [address] Sep, [facility] [address] [id number] [place] [address] Sep, [facility] [place] [facility] [address] [id number] [place] [address] Aug, [facility] [address] [id number] [place] [address] Aug, [facility] [address] [id number] [place] [address] Aug, [facility] [place] [facility] [address] [id number] [place] [address] Aug, [facility] [address] [id number] [place] [address] Aug, [facility] [place] [facility] [address] [id number] [place] [address] Aug, [facility] [address] [id number] [place] [address] Aug, [facility] [place] [facility] [address] [id number] [place] [address] Aug, [facility] [place] [facility] [address] [id number] [place] [address] Jul, [facility] [place] [facility] [address] [id number] [place] [address] Jul, [facility] [place] [facility] [address] [id number] [place] [address] Dec, [facility] [place] [facility] [address] [id number] [place] [address] Dec, [facility] [place] [facility] [address] [id number] [place] [address] Sep, [facility] [place] [facility] [address] [id number] [place] [address] Sep, [facility] [place] [facility] [address] [id number] [place] [address] Sep, [facility] [place] [facility] [address] [id number] [place] [address] Sep, [facility] [place] [facility] [address] [id number] [place] [address] Sep, [facility] [place] [facility] [address] [id number] [place] [address] Sep, [facility] [place] [facility] [address] [id number] [place] [address] Aug, [facility] [place] [facility] [address] [id number] [place] [address] Aug, [facility] [place] [facility] [address] [id number] [place] [address] Aug, [facility] [place] [facility] [address] [id number] [place] [address] Aug, [facility] [place] [facility] [address] [id number] [place] [address] Aug, [facility] [place] [facility] [address] [id number] [place] [address] Aug, [facility] [place] [facility] [address] [id number] [place] [address] Aug, [facility] [place] [facility] [address] [id number] [place] [address] Aug, [facility] [place] [facility] [address] [id number] [place] [address] Jul, [facility] [place] [facility] [address] [id number] [place] [address] 10 Jul, 2013 [facility] [address] [id number] [place] [address] Jun, [facility] [place] [facility] [address] [id number] [place] [address] Jun, [facility] [place] [facility] [address] [id number] [place] [address] Mar, [facility] [place] [facility] [address] [id number] [place] [address] Mar, [facility] [place] [facility] [address] [id number] [place] [address] Mar, [facility] [place] [facility] [address] [id number] [place] [address] Mar, [facility] [address] [id number] [place] [address] Feb, [facility] [place] [facility] [address] [id number] [place] [address] Jan, [facility] [place] [facility] [address] [id number] [place] [address] Jan, [facility] [place] [facility] [address] [id number] [place] [address] Jan, [facility] [place] [facility] [address] [id number] [place] [address] Jan, [facility] [place] [facility] [address] [id number] [place] [address] Dec, [facility] [place] [facility] [address] [id number] [place] [address] October, [facility] [place] [facility] [address] [id number] [place] [address] October, [facility] [place] [facility] [address] [id number] [place] [address] October, [facility] [place] [facility] [address] [id number] [place] [address] October, [facility] [address] [id number] [place] [address] Jun, [facility] [place] [facility] [address] [id number] [place] [address] Jun, [facility] [address] [id number] [place] [address] May, [facility] [address] [id number] [place] [address] May, [facility] [address] [id number] [place] [address] Dec, [facility] [address] [id number] [place] [address] Nov, [facility] [address] [id number] [place] [address] Nov, [facility] [address] [id number] [place] [address] October, [facility] [address] [id number] [place] [address] Sep, [facility] [place] [facility] [address] [id number] [place] [address] Sep, [facility] [address] [id number] [place] [address] Aug, [facility] [place] [facility] [address] [id number] [place] [address] Aug, [facility] [place] [facility] [address] [id number] [place] [address] Jul, [facility] [place] [facility] [address] [id number] [place] [address] Jul, [facility] [place] [facility] [address] [id number] [address] Jul, [facility] [id number] [address] Jul, [facility] [id number] [address] May, [facility] [id number] [address] May, [facility] [id number] [address] May, [facility] [id number] [address] May, [facility] [id number] [address] May, [facility] [id number] [address] Nov, [facility] [id number] [address] Jul, [facility] [id number] [address] May, [facility] [id number] [address] Jun, [facility] [id number] [address] Apr, IMMUNIZATIONS No Known Immunizations SOCIAL HISTORY Never Assessed REASON FOR VISIT [facility] PLAN OF CARE VITAL SIGNS MEDICATIONS Unknown Medications RESULTS No Results PROCEDURES No Known procedures INSTRUCTIONS MEDICATIONS ADMINISTERED No Known Medications MEDICAL (GENERAL) HISTORY Type Description Date Medical History Staph infection Medical History diabetes type II Medical History leg calf pertheses disease Surgical History shelf procedure-left hip years old Hospitalization History surgery Hospitalization History spider bite 06/23 Hospitalization History Sepsis, Cellulitis, hyperglycemi, hyponatremia--[facility] 02/27/2016 Hospitalization History Sepsis, Abcess, Cellulitis--[facility] 03/04/2016
--- OUTSIDE RECORDS SUMMARY | 2018-11-24 23:47 | XMS REPORT ---
Author Author Migration, Doctor Organization [facility] Address Unknown Phone Unavailable Care Team Providers Care Producer Assistant Name Role Phone Migration, Doctor Unavailable Unavailable PROBLEMS Type Condition ICD9-CM Code TUB22-ZG Code Onset Dates Condition Status SNOMED Code Problem USP current use of insulin Z79.4 Active 325069537 Problem Type 2 diabetes mellitus without 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.9 Active 053391185 ALLERGIES No Information ENCOUNTERS Encounter Location Date Diagnosis [facility] [id number] [place] [address] May, [place] [id number] [place] [address] Mar, [facility] [id number] [place] [address] Mar, [facility] [id number] [place] [address] Feb, [facility] [id number] [place] [address] Feb, [facility] [id number] [place] [address] Feb, Cellulitis of chest wall L03.313 ; Type 2 diabetes mellitus without 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.9 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 [address] [id number] [place] [address] 29 Sep, 2014 [facility] [place] [facility] [address] [id number] [place] [address] Sep, [facility] [address] [id number] [place] [address] Sep, [facility] [place] [facility] [address] [id number] [place] [address] Aug, [facility] [address] [id number] [place] [address] Aug, [facility] [address] [id number] [place] [address] Aug, [facility] [place] [facility] [address] [id number] [place] [address] Aug, [facility] [address] [id number] [place] [address] Aug, [facility] [place] [facility] [address] [id number] [place] [address] Aug, [facility] [address] [id number] [place] [address] Aug, [facility] [place] [facility] [address] [id number] [place] [address] Aug, [facility] [place] [facility] [address] [id number] [place] [address] Jul, [facility] [place] [facility] [address] [id number] [place] [address] Jul, [facility] [place] [facility] [address] [id number] [place] [address] Dec, [facility] [place] [facility] [address] [id number] [place] [address] Dec, [facility] [place] [facility] [address] [id number] [place] [address] Sep, [facility] [place] [facility] [address] [id number] [place] [address] Sep, [facility] [place] [facility] [address] [id number] [place] [address] Sep, [facility] [place] [facility] [address] [id number] [place] [address] Sep, [facility] [place] [facility] [address] [id number] [place] [address] Sep, [facility] [place] [facility] [address] [id number] [place] [address] Sep, [facility] [place] [facility] [address] [id number] [place] [address] Aug, [facility] [place] [facility] [address] [id number] [place] [address] Aug, [facility] [place] [facility] [address] [id number] [place] [address] Aug, [facility] [place] [facility] [address] [id number] [place] [address] Aug, [facility] [place] [facility] [address] [id number] [place] [address] Aug, [facility] [place] [facility] [address] [id number] [place] [address] Aug, [facility] [place] [facility] [address] [id number] [place] [address] Aug, [facility] [place] [facility] [address] [id number] [place] [address] Aug, [facility] [place] [facility] [address] [id number] [place] [address] Jul, [facility] [place] [facility] [address] [id number] [place] [address] 10 Jul, 2013 [facility] [address] [id number] [place] [address] Jun, [facility] [place] [facility] [address] [id number] [place] [address] Jun, [facility] [place] [facility] [address] [id number] [place] [address] Mar, [facility] [place] [facility] [address] [id number] [place] [address] Mar, [facility] [place] [facility] [address] [id number] [place] [address] Mar, [facility] [place] [facility] [address] [id number] [place] [address] Mar, [facility] [address] [id number] [place] [address] Feb, [facility] [place] [facility] [address] [id number] [place] [address] Jan, [facility] [place] [facility] [address] [id number] [place] [address] Jan, [facility] [place] [facility] [address] [id number] [place] [address] Jan, [facility] [place] [facility] [address] [id number] [place] [address] Jan, [facility] [place] [facility] [address] [id number] [place] [address] Dec, [facility] [place] [facility] [address] [id number] [place] [address] October, [facility] [place] [facility] [address] [id number] [place] [address] October, [facility] [place] [facility] [address] [id number] [place] [address] October, [facility] [place] [facility] [address] [id number] [place] [address] October, [facility] [address] [id number] [place] [address] Jun, [facility] [place] [facility] [address] [id number] [place] [address] Jun, [facility] [address] [id number] [place] [address] May, [facility] [address] [id number] [place] [address] May, [facility] [address] [id number] [place] [address] Dec, [facility] [address] [id number] [place] [address] Nov, [facility] [address] [id number] [place] [address] Nov, [facility] [address] [id number] [place] [address] October, [facility] [address] [id number] [place] [address] Sep, [facility] [place] [facility] [address] [id number] [place] [address] Sep, [facility] [address] [id number] [place] [address] Aug, [facility] [place] [facility] [address] [id number] [place] [address] Aug, [facility] [place] [facility] [address] [id number] [place] [address] Jul, [facility] [place] [facility] [address] [id number] [place] [address] Jul, [facility] [place] [facility] [address] [id number], [place] [address] Jul, [facility] [address] [address] Jul, [facility] [address] [address] May, [facility] [id number], [place] [address] May, [facility] [address], [place] [address] May, [facility] [address], [place] [address] May, [facility] [address], [place] [address] May, [facility] [address], [place] [address] Nov, [facility] [address], [place] [address] Jul, [facility] [address], [place] [address] May, [facility] [address], [place] [address] Jun, [facility] [id number] [address] Apr, IMMUNIZATIONS No Known Immunizations SOCIAL HISTORY Never Assessed REASON FOR VISIT [facility] PLAN OF CARE VITAL SIGNS MEDICATIONS Unknown Medications RESULTS No Results PROCEDURES No Known procedures INSTRUCTIONS MEDICATIONS ADMINISTERED No Known Medications MEDICAL (GENERAL) HISTORY Type Description Date Medical History Staph infection Medical History diabetes type II Medical History leg calf pertheses disease Surgical History shelf procedure-left hip years old Hospitalization History surgery Hospitalization History spider bite 06/23 Hospitalization History Sepsis, Cellulitis, hyperglycemi, hyponatremia--[facility] 02/27/2016 Hospitalization History Sepsis, Abcess, Cellulitis--[facility] 03/04/2016
--- OUTSIDE RECORDS SUMMARY | 2018-11-24 23:47 | XMS REPORT ---
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 Name Role Phone Migration, Doctor Unavailable Unavailable PROBLEMS Type Condition ICD9-CM Code TNP74-ZV Code Onset Dates Condition Status SNOMED Code Problem senior living current use of insulin Z79.4 Active 786020985 Problem Type 2 diabetes mellitus without 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.9 Active 202798438 ALLERGIES No Information ENCOUNTERS Encounter Location Date Diagnosis [facility] [id number] [place] [address] May, [facility] [id number] [place] [address] Mar, [facility] [id number] [place] [address] Mar, [facility] [id number] [place] [address] Feb, [facility] [id number] [place] [address] Feb, [facility] [id number] [place] [address] Feb, Cellulitis of chest wall L03.313 ; Type 2 diabetes 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 without 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.9 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 [facility] [id number] [place] [address] Feb, [facility] [id number] [place] [address] Feb, [facility] [id number] [place] [address] Jun, External otitis of left ear H60.92 and Skin infection L08.9 [facility] [id number] [place] [address] Jun, [facility] [address] [id number] [place] [address] 29 Sep, 2014 [facility] [place] [facility] [address] [id number] [place] [address] Sep, [facility] [address] [id number] [place] [address] Sep, [facility] [place] [facility] [address] [id number] [place] [address] Aug, [facility] [address] [id number] [place] [address] Aug, [facility] [address] [id number] [place] [address] Aug, [facility] [place] [facility] [address] [id number] [place] [address] Aug, [facility] [address] [id number] [place] [address] Aug, [facility] [place] [facility] [address] [id number] [place] [address] Aug, [facility] [address] [id number] [place] [address] Aug, [facility] [place] [facility] [address] [id number] [place] [address] Aug, [facility] [place] [facility] [address] [id number] [place] [address] Jul, [facility] [place] [facility] [address] [id number] [place] [address] Jul, [facility] [place] [facility] [address] [id number] [place] [address] Dec, [facility] [place] [facility] [address] [id number] [place] [address] Dec, [facility] [place] [facility] [address] [id number] [place] [address] Sep, [facility] [place] [facility] [address] [id number] [place] [address] Sep, [facility] [place] [facility] [address] [id number] [place] [address] Sep, [facility] [place] [facility] [address] [id number] [place] [address] Sep, [facility] [place] [facility] [address] [id number] [place] [address] Sep, [facility] [place] [facility] [address] [id number] [place] [address] Sep, [facility] [place] [facility] [address] [id number] [place] [address] Aug, [facility] [place] [facility] [address] [id number] [place] [address] Aug, [facility] [place] [facility] [address] [id number] [place] [address] Aug, [facility] [place] [facility] [address] [id number] [place] [address] Aug, [facility] [place] [facility] [address] [id number] [place] [address] Aug, [facility] [place] [facility] [address] [id number] [place] [address] Aug, [facility] [place] [facility] [address] [id number] [place] [address] Aug, [facility] [place] [facility] [address] [id number] [place] [address] Aug, [facility] [place] [facility] [address] [id number] [place] [address] Jul, [facility] [place] [facility] [address] [id number] [place] [address] 10 Jul, 2013 [facility] [address] [id number] [place] [address] Jun, [facility] [place] [facility] [address] [id number] [place] [address] Jun, [facility] [place] [facility] [address] [id number] [place] [address] Mar, [facility] [place] [facility] [address] [id number] [place] [address] Mar, [facility] [place] [facility] [address] [id number] [place] [address] Mar, [facility] [place] [facility] [address] [id number] [place] [address] Mar, [facility] [address] [id number] [place] [address] Feb, [facility] [place] [facility] [address] [id number] [place] [address] Jan, [facility] [place] [facility] [address] [id number] [place] [address] Jan, [facility] [place] [facility] [address] [id number] [place] [address] Jan, [facility] [place] [facility] [address] [id number] [place] [address] Jan, [facility] [place] [facility] [address] [id number] [place] [address] Dec, [facility] [place] [facility] [address] [id number] [place] [address] October, [facility] [place] [facility] [address] [id number] [place] [address] October, [facility] [place] [facility] [address] [id number] [place] [address] October, [facility] [place] [facility] [address] [id number] [place] [address] October, [facility] [address] [id number] [place] [address] Jun, [facility] [place] [facility] [address] [id number] [place] [address] Jun, [facility] [address] [id number] [place] [address] May, [facility] [address] [id number] [place] [address] May, [facility] [address] [id number] [place] [address] Dec, [facility] [address] [id number] [place] [address] Nov, [facility] [address] [id number] [place] [address] Nov, [facility] [address] [id number] [place] [address] October, [facility] [address] [id number] [place] [address] Sep, [facility] [place] [facility] [address] [id number] [place] [address] Sep, [facility] [address] [id number] [place] [address] Aug, [facility] [place] [facility] [address] [id number] [place] [address] Aug, [facility] [place] [facility] [address] [id number] [place] [address] Jul, [facility] [place] [facility] [address] [id number] [place] [address] Jul, [facility] [place] [facility] [address] [id number] [address] Jul, [facility] [address] [place] [address] Jul, [facility] [address] [place] [address] May, [facility] [address], [place] [address] May, [facility] [address], [place] [address] May, [facility] [address], [place] [address] May, [facility] [address], [place] [address] May, [facility] [address], [place] [address] Nov, [facility] [address], [place] [address] Jul, [facility] [address], [place] [address] May, [facility] [address], [place] [address] Jun, [facility] [id number] [address] Apr, IMMUNIZATIONS No Known Immunizations SOCIAL HISTORY Never Assessed REASON FOR VISIT [facility] PLAN OF CARE VITAL SIGNS MEDICATIONS Unknown Medications RESULTS No Results PROCEDURES No Known procedures INSTRUCTIONS MEDICATIONS ADMINISTERED No Known Medications MEDICAL (GENERAL) HISTORY Type Description Date Medical History Staph infection Medical History diabetes type II Medical History leg calf pertheses disease Surgical History shelf procedure-left hip years old Hospitalization History surgery Hospitalization History spider bite 06/23 Hospitalization History Sepsis, Cellulitis, hyperglycemi, hyponatremia--[facility] 02/27/2016 Hospitalization History Sepsis, Abcess, Cellulitis--[facility] 03/04/2016
--- OUTSIDE RECORDS SUMMARY | 2018-11-24 23:47 | XMS REPORT ---
Author Author Migration, Doctor Organization [facility] Address Unknown Phone Unavailable Care Team Providers Care Property Consultant Name Role Phone Migration, Doctor Unavailable Unavailable PROBLEMS Type Condition ICD9-CM Code [id number] Code Onset Dates Condition Status SNOMED Code Problem senior care current use of insulin Z79.4 Active 950449480 Problem Type 2 diabetes mellitus without 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.9 Active [id number] ALLERGIES No Information ENCOUNTERS Encounter Location Date Diagnosis [facility] [id number] [place] [address] May, [facility] [id number] [place] [address] Mar, [facility] [id number] [place] [address] Mar, [facility] [id number] [place] [address] Feb, [facility] [id number] [place] [address] Feb, [facility] [id number] [place] [address] Feb, Cellulitis of chest wall L03.313 ; Type 2 diabetes mellitus without 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.9 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 [facility] [id number] [place] [address] Feb, [facility] [id number] [place] [address] Feb, [facility] [id number] [place] [address] Jun, External otitis of left ear H60.92 and Skin infection L08.9 [facility] [id number] [place] [address] Jun, [facility] [address] [id number] [place] [address] 29 Sep, 2014 [facility] [place] [facility] [address] [id number] [place] [address] Sep, [facility] [address] [id number] [place] [address] Sep, [facility] [place] [facility] [address] [id number] [place] [address] Aug, [facility] [address] [id number] [place] [address] Aug, [facility] [address] [id number] [place] [address] Aug, [facility] [place] [facility] [address] [id number] [place] [address] Aug, [facility] [address] [id number] [place] [address] Aug, [facility] [place] [facility] [address] [id number] [place] [address] Aug, [facility] [address] [id number] [place] [address] Aug, [facility] [place] [facility] [address] [id number] [place] [address] Aug, [facility] [place] [facility] [address] [id number] [place] [address] Jul, [facility] [place] [facility] [address] [id number] [place] [address] Jul, [facility] [place] [facility] [address] [id number] [place] [address] Dec, [facility] [place] [facility] [address] [id number] [place] [address] Dec, [facility] [place] [facility] [address] [id number] [place] [address] Sep, [facility] [place] [facility] [address] [id number] [place] [address] Sep, [facility] [place] [facility] [address] [id number] [place] [address] Sep, [facility] [place] [facility] [address] [id number] [place] [address] Sep, [facility] [place] [facility] [address] [id number] [place] [address] Sep, [facility] [place] [facility] [address] [id number] [place] [address] Sep, [facility] [place] [facility] [address] [id number] [place] [address] Aug, [facility] [place] [facility] [address] [id number] [place] [address] Aug, [facility] [place] [facility] [address] [id number] [place] [address] Aug, [facility] [place] [facility] [address] [id number] [place] [address] Aug, [facility] [place] [facility] [address] [id number] [place] [address] Aug, [facility] [place] [facility] [address] [id number] [place] [address] Aug, [facility] [place] [facility] [address] [id number] [place] [address] Aug, [facility] [place] [facility] [address] [id number] [place] [address] Aug, [facility] [place] [facility] [address] [id number] [place] [address] Jul, [facility] [place] [facility] [address] [id number] [place] [address] 10 Jul, 2013 [facility] [address] [id number] [place] [address] Jun, [facility] [place] [facility] [address] [id number] [place] [address] Jun, [facility] [place] [facility] [address] [id number] [place] [address] Mar, [facility] [place] [facility] [address] [id number] [place] [address] Mar, [facility] [place] [facility] [address] [id number] [place] [address] Mar, [facility] [place] [facility] [address] [id number] [place] [address] Mar, [facility] [address] [id number] [place] [address] Feb, [facility] [place] [facility] [address] [id number] [place] [address] Jan, [facility] [place] [facility] [address] [id number] [place] [address] Jan, [facility] [place] [facility] [address] [id number] [place] [address] Jan, [facility] [place] [facility] [address] [id number] [place] [address] Jan, [facility] [place] [facility] [address] [id number] [place] [address] Dec, [facility] [place] [facility] [address] [id number] [place] [address] October, [facility] [place] [facility] [address] [id number] [place] [address] October, [facility] [place] [facility] [address] [id number] [place] [address] October, [facility] [place] [facility] [address] [id number] [place] [address] October, [facility] [address] [id number] [place] [address] Jun, [facility] [place] [facility] [address] [id number] [place] [address] Jun, [facility] [address] [id number] [place] [address] May, [facility] [address] [id number] [place] [address] May, [facility] [address] [id number] [place] [address] Dec, [facility] [address] [id number] [place] [address] Nov, [facility] [address] [id number] [place] [address] Nov, [facility] [address] [id number] [place] [address] October, [facility] [address] [id number] [place] [address] Sep, [facility] [place] [facility] [address] [id number] [place] [address] Sep, [facility] [address] [id number] [place] [address] Aug, [facility] [place] [facility] [address] [id number] [place] [address] Aug, [facility] [place] [facility] [address] [id number] [place] [address] Jul, [facility] [place] [facility] [address] [id number] [place] [address] Jul, [facility] [place] [facility] [address] [id number] [address] Jul, [facility] [address] [address] Jul, [facility] [address] [address] May, [facility] [address] [address] May, [facility] [address] [address] May, [facility] [address] [address] May, [facility] [address] [address] May, [facility] [address], [place] [address] Nov, [facility] [address], [place] [address] Jul, [facility] [address], [place] [address] May, [facility] [address], [place] [address] Jun, [facility] [id number] [address] Apr, IMMUNIZATIONS No Known Immunizations SOCIAL HISTORY Never Assessed REASON FOR VISIT [facility] PLAN OF CARE VITAL SIGNS MEDICATIONS Unknown Medications RESULTS No Results PROCEDURES No Known procedures INSTRUCTIONS MEDICATIONS ADMINISTERED No Known Medications MEDICAL (GENERAL) HISTORY Type Description Date Medical History Staph infection Medical History diabetes type II Medical History leg calf pertheses disease Surgical History shelf procedure-left hip years old Hospitalization History surgery Hospitalization History spider bite 06/23 Hospitalization History Sepsis, Cellulitis, hyperglycemi, hyponatremia--[facility] 02/27/2016 Hospitalization History Sepsis, Abcess, Cellulitis--[facility] 03/04/2016
--- OUTSIDE RECORDS SUMMARY | 2018-11-24 23:48 | XMS REPORT ---
Author Author Migration, Doctor Organization [facility] Address Unknown Phone Unavailable Care Team Providers Care Director Of Photography Name Role Phone Migration, Doctor Unavailable Unavailable PROBLEMS Type Condition ICD9-CM Code ITL59-EA Code Onset Dates Condition Status SNOMED Code Problem detention current use of insulin Z79.4 Active 382430982 Problem Type 2 diabetes mellitus without 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.9 Active 292912871 ALLERGIES No Information ENCOUNTERS Encounter Location Date Diagnosis [facility] [id number] [place] [address] May, [id number] [place] [address] Mar, [facility] [id number] [place] [address] Mar, [facility] [id number] [place] [address] Feb, [facility] [id number] [place] [address] Feb, [facility] [id number] [place] [address] Feb, Cellulitis of chest wall L03.313 ; Type 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 [address] [id number] [place] [address] 29 Sep, 2014 [facility] [place] [facility] [address] [id number] [place] [address] Sep, [facility] [address] [id number] [place] [address] Sep, [facility] [place] [facility] [address] [id number] [place] [address] Aug, [facility] [address] [id number] [place] [address] Aug, [facility] [address] [id number] [place] [address] Aug, [facility] [place] [facility] [address] [id number] [place] [address] Aug, [facility] [address] [id number] [place] [address] Aug, [facility] [place] [facility] [address] [id number] [place] [address] Aug, [facility] [address] [id number] [place] [address] Aug, [facility] [place] [facility] [address] [id number] [place] [address] Aug, [facility] [place] [facility] [address] [id number] [place] [address] Jul, [facility] [place] [facility] [address] [id number] [place] [address] Jul, [facility] [place] [facility] [address] [id number] [place] [address] Dec, [facility] [place] [facility] [address] [id number] [place] [address] Dec, [facility] [place] [facility] [address] [id number] [place] [address] Sep, [facility] [place] [facility] [address] [id number] [place] [address] Sep, [facility] [place] [facility] [address] [id number] [place] [address] Sep, [facility] [place] [facility] [address] [id number] [place] [address] Sep, [facility] [place] [facility] [address] [id number] [place] [address] Sep, [facility] [place] [facility] [address] [id number] [place] [address] Sep, [facility] [place] [facility] [address] [id number] [place] [address] Aug, [facility] [place] [facility] [address] [id number] [place] [address] Aug, [facility] [place] [facility] [address] [id number] [place] [address] Aug, [facility] [place] [facility] [address] [id number] [place] [address] Aug, [facility] [place] [facility] [address] [id number] [place] [address] Aug, [facility] [place] [facility] [address] [id number] [place] [address] Aug, [facility] [place] [facility] [address] [id number] [place] [address] Aug, [facility] [place] [facility] [address] [id number] [place] [address] Aug, [facility] [place] [facility] [address] [id number] [place] [address] Jul, [facility] [place] [facility] [address] [id number] [place] [address] 10 Jul, 2013 [facility] [address] [id number] [place] [address] Jun, [facility] [place] [facility] [address] [id number] [place] [address] Jun, [facility] [place] [facility] [address] [id number] [place] [address] Mar, [facility] [place] [facility] [address] [id number] [place] [address] Mar, [facility] [place] [facility] [address] [id number] [place] [address] Mar, [facility] [place] [facility] [address] [id number] [place] [address] Mar, [facility] [address] [id number] [place] [address] Feb, [facility] [place] [facility] [address] [id number] [place] [address] Jan, [facility] [place] [facility] [address] [id number] [place] [address] Jan, [facility] [place] [facility] [address] [id number] [place] [address] Jan, [facility] [place] [facility] [address] [id number] [place] [address] Jan, [facility] [place] [facility] [address] [id number] [place] [address] Dec, [facility] [place] [facility] [address] [id number] [place] [address] October, [facility] [place] [facility] [address] [id number] [place] [address] October, [facility] [place] [facility] [address] [id number] [place] [address] October, [facility] [place] [facility] [address] [id number] [place] [address] October, [facility] [address] [id number] [place] [address] Jun, [facility] [place] [facility] [address] [id number] [place] [address] Jun, [facility] [address] [id number] [place] [address] May, [facility] [address] [id number] [place] [address] May, [facility] [address] [id number] [place] [address] Dec, [facility] [address] [id number] [place] [address] Nov, [facility] [address] [id number] [place] [address] Nov, [facility] [address] [id number] [place] [address] October, [facility] [address] [id number] [place] [address] Sep, [facility] [place] [facility] [address] [id number] [place] [address] Sep, [facility] [address] [id number] [place] [address] Aug, [facility] [place] [facility] [address] [id number] [place] [address] Aug, [facility] [place] [facility] [address] [id number] [place] [address] Jul, [facility] [place] [facility] [address] [id number] [place] [address] Jul, [facility] [place] [facility] [address] [id number] [address] Jul, [facility] [address] [address] Jul, [facility] [address] [address] May, [facility] [address] [address] May, [facility] [address] [address] May, [facility] [address] [address] May, [facility] [address], [place] [address] May, [facility] [address], [place] [address] Nov, [facility] [address] [address] Jul, [facility] [address] [address] May, [facility] [address], [place] [address] Jun, [facility] [id number] [address] Apr, IMMUNIZATIONS No Known Immunizations SOCIAL HISTORY Never Assessed REASON FOR VISIT [facility] PLAN OF CARE VITAL SIGNS MEDICATIONS Unknown Medications RESULTS No Results PROCEDURES No Known procedures INSTRUCTIONS MEDICATIONS ADMINISTERED No Known Medications MEDICAL (GENERAL) HISTORY Type Description Date Medical History Staph infection Medical History diabetes type II Medical History leg calf pertheses disease Surgical History shelf procedure-left hip years old Hospitalization History surgery Hospitalization History spider bite 06/23 Hospitalization History Sepsis, Cellulitis, hyperglycemi, hyponatremia--[facility] 02/27/2016 Hospitalization History Sepsis, Abcess, Cellulitis--[facility] 03/04/2016
--- OUTSIDE RECORDS SUMMARY | 2018-11-24 23:48 | XMS REPORT ---
Author Author LOLA PRUETT [facility] Address [address] [place] [address] Care Team Providers Care Company Truck Driver Name Role Phone LOLA PRUETT Unavailable PROBLEMS Type Condition ICD9-CM Code [id number] Code Onset Dates Condition Status SNOMED Code Problem Type 2 diabetes mellitus without 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.9 Active 081440346 Problem senior living current use of insulin Z79.4 Active [id number] ALLERGIES Unknown Allergies SOCIAL HISTORY No smoking Hx information available PLAN OF CARE VITAL SIGNS MEDICATIONS Unknown Medications RESULTS No Results PROCEDURES No Known procedures IMMUNIZATIONS No Known Immunizations
--- OUTSIDE RECORDS SUMMARY | 2018-11-24 23:48 | XMS REPORT ---
Author Author Migration, Doctor Organization [facility] Address Unknown Phone Unavailable Care Team Providers Care It Engineer Name Role Phone Migration, Doctor Unavailable Unavailable PROBLEMS Type Condition ICD9-CM Code [id number] Code Onset Dates Condition Status SNOMED Code Problem [facility] current use of insulin Z79.4 Active [id number] Problem Type 2 diabetes mellitus without 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.9 Active [id number] ALLERGIES No Information ENCOUNTERS Encounter Location Date Diagnosis [facility] [id number] [place] [address] May, [place] [id number] [place] [address] Mar, [facility] [id number] [place] [address] Mar, [facility] [id number] [place] [address] Feb, [facility] [id number] [place] [address] Feb, [facility] [id number] [place] [address] Feb, Cellulitis of chest wall L03.313 ; Type 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 [place] [address] Jun, [facility] [address] [id number] [place] [address] 29 Sep, 2014 [facility] [place] [facility] [address] [id number] [place] [address] Sep, [facility] [address] [id number] [place] [address] Sep, [facility] [place] [facility] [address] [id number] [place] [address] Aug, [facility] [address] [id number] [place] [address] Aug, [facility] [address] [id number] [place] [address] Aug, [facility] [place] [facility] [address] [id number] [place] [address] Aug, [facility] [address] [id number] [place] [address] Aug, [facility] [place] [facility] [address] [id number] [place] [address] Aug, [facility] [address] [id number] [place] [address] Aug, [facility] [place] [facility] [address] [id number] [place] [address] Aug, [facility] [place] [facility] [address] [id number] [place] [address] Jul, [facility] [place] [facility] [address] [id number] [place] [address] Jul, [facility] [place] [facility] [address] [id number] [place] [address] Dec, [facility] [place] [facility] [address] [id number] [place] [address] Dec, [facility] [place] [facility] [address] [id number] [place] [address] Sep, [facility] [place] [facility] [address] [id number] [place] [address] Sep, [facility] [place] [facility] [address] [id number] [place] [address] Sep, [facility] [place] [facility] [address] [id number] [place] [address] Sep, [facility] [place] [facility] [address] [id number] [place] [address] Sep, [facility] [place] [facility] [address] [id number] [place] [address] Sep, [facility] [place] [facility] [address] [id number] [place] [address] Aug, [facility] [place] [facility] [address] [id number] [place] [address] Aug, [facility] [place] [facility] [address] [id number] [place] [address] Aug, [facility] [place] [facility] [address] [id number] [place] [address] Aug, [facility] [place] [facility] [address] [id number] [place] [address] Aug, [facility] [place] [facility] [address] [id number] [place] [address] Aug, [facility] [place] [facility] [address] [id number] [place] [address] Aug, [facility] [place] [facility] [address] [id number] [place] [address] Aug, [facility] [place] [facility] [address] [id number] [place] [address] Jul, [facility] [place] [facility] [address] [id number] [place] [address] 10 Jul, 2013 [facility] [address] [id number] [place] [address] Jun, [facility] [place] [facility] [address] [id number] [place] [address] Jun, [facility] [place] [facility] [address] [id number] [place] [address] Mar, [facility] [place] [facility] [address] [id number] [place] [address] Mar, [facility] [place] [facility] [address] [id number] [place] [address] Mar, [facility] [place] [facility] [address] [id number] [place] [address] Mar, [facility] [address] [id number] [place] [address] Feb, [facility] [place] [facility] [address] [id number] [place] [address] Jan, [facility] [place] [facility] [address] [id number] [place] [address] Jan, [facility] [place] [facility] [address] [id number] [place] [address] Jan, [facility] [place] [facility] [address] [id number] [place] [address] Jan, [facility] [place] [facility] [address] [id number] [place] [address] Dec, [facility] [place] [facility] [address] [id number] [place] [address] October, [facility] [place] [facility] [address] [id number] [place] [address] October, [facility] [place] [facility] [address] [id number] [place] [address] October, [facility] [place] [facility] [address] [id number] [place] [address] October, [facility] [address] [id number] [place] [address] Jun, [facility] [place] [facility] [address] [id number] [place] [address] Jun, [facility] [address] [id number] [place] [address] May, [facility] [address] [id number] [place] [address] May, [facility] [address] [id number] [place] [address] Dec, [facility] [address] [id number] [place] [address] Nov, [facility] [address] [id number] [place] [address] Nov, [facility] [address] [id number] [place] [address] October, [facility] [address] [id number] [place] [address] Sep, [facility] [place] [facility] [address] [id number] [place] [address] Sep, [facility] [address] [id number] [place] [address] Aug, [facility] [place] [facility] [address] [id number] [place] [address] Aug, [facility] [place] [facility] [address] [id number] [place] [address] Jul, [facility] [place] [facility] [address] [id number] [place] [address] Jul, [facility] [place] [facility] [address] [id number] [address] Jul, [facility] [id number] [address] Jul, [facility] [id number] [address] May, [facility] [id number] [address] 16 May, 2010 [facility] [id number] [place] [address] May, [facility] [id number] [place] [address] May, [facility] [id number] [place] [address] May, [facility] [id number] [place] [address] Nov, [facility] [id number] [address] Jul, [facility] [id number] [address] May, [facility] [id number] [address] Jun, [facility] [id number] [address] Apr, IMMUNIZATIONS No Known Immunizations SOCIAL HISTORY Never Assessed REASON FOR VISIT EMR-[facility] PLAN OF CARE VITAL SIGNS MEDICATIONS Medication Instructions Dosage Frequency Start Date End Date Duration Status metformin 500 mg take 2 tablet by Oral route 2 times per day Aug, Active Diflucan 100 mg take 1 tablet (100 mg) by oral route once daily for 14 days for 10 days October, Active Zantac 150 mg 1 tablet by Oral route 1 time per day for 10 days PRN for heartburn Mar, Active Edmwuill-Rgqlaoevz-NZ 3.5-10,000-1 mg/mL-unit/mL-% 4 drop by Otic route 3 times per day for 7 day(s) right ear Jul, Active Magnesium Oxide 400 mg 1 Tablet by Oral route 2 times per day for 5 days October, Active Cefdinir 300 mg take 1 capsule (300 mg) by oral route every 12 hours for 7 days October, Active RESULTS No Results PROCEDURES No Known procedures INSTRUCTIONS MEDICATIONS ADMINISTERED No Known Medications MEDICAL (GENERAL) HISTORY Type Description Date Medical History Staph infection Medical History diabetes type II Medical History leg calf pertheses disease Surgical History shelf procedure-left hip years old Hospitalization History surgery Hospitalization History spider bite 06/23 Hospitalization History Sepsis, Cellulitis, hyperglycemi, hyponatremia--[facility] 02/27/2016 Hospitalization History Sepsis, Abcess, Cellulitis--[facility] 03/04/2016
--- OUTSIDE RECORDS SUMMARY | 2018-11-24 23:51 | XMS REPORT | Continuity of Care Document ---
Author Organization Unknown Address Unknown Allergies Active Description Code Type Severity Reaction Onset Reported/Identified Relationship to Patient Clinical Status Yes No Known Drug Allergies [id number] Drug Allergy Mild N/A 11/23/2008 Yes vancomycin [id number] Drug Allergy Unknown N/A 02/27/2016 Yes vancomycin [id number] Drug Allergy Mild N/A 11/24/2018 Medications There is no data. Problems Date Dx Coded Attending Type Code Diagnosis Diagnosed By 03/31/2008 719.47 Pain In Joint Involving Ankle And Foot 03/31/2008 719.47 Pain In Joint Involving Ankle And Foot 03/31/2008 719.47 Pain In Joint Involving Ankle And Foot 03/31/2008 719.47 Pain In Joint Involving Ankle And Foot 03/31/2008 719.47 Pain In Joint Involving Ankle And Foot 03/31/2008 EDWIN BENTON DO 719.47 Pain In Joint Involving Ankle And Foot 03/31/2008 BARRETT HERNANDEZ MD 719.47 Pain In Joint Involving Ankle And Foot 03/31/2008 LOLA PRUETT MD 719.47 Pain In Joint Involving Ankle And Foot 03/31/2008 LOLA PRUETT MD 719.47 Pain In Joint Involving Ankle And Foot 05/26/2008 401.1 Essential Hypertension Benign 05/26/2008 V58.69 Medication High Risk 05/26/2008 401.1 Essential Hypertension Benign 05/26/2008 V58.69 Medication High Risk 05/26/2008 401.1 Essential Hypertension Benign 05/26/2008 V58.69 Medication High Risk 05/26/2008 401.1 Essential Hypertension Benign 05/26/2008 V58.69 Medication High Risk 05/26/2008 401.1 Essential Hypertension Benign 05/26/2008 V58.69 Medication High Risk 05/26/2008 EDWIN BENTON DO 401.1 Essential Hypertension Benign 05/26/2008 EDWIN BENTON DO V58.69 Medication High Risk 05/26/2008 BARRETT HERNANDEZ MD 401.1 Essential Hypertension Benign 05/26/2008 DAVID MCDANIEL, BARRETT V58.69 Medication High Risk 05/26/2008 LOLA PRUETT MD 401.1 Essential Hypertension Benign 05/26/2008 LOLA PRUETT MD V58.69 Medication High Risk 05/26/2008 LOLA PRUETT MD 401.1 Essential Hypertension Benign 05/26/2008 LOLA PRUETT MD V58.69 Medication High Risk 07/13/2008 250.00 DIABETES MELLITUS TYPE 2 07/13/2008 278.01 OBESITY MORBID 07/13/2008 401.9 Combined Systolic And Diastolic Elevation 07/13/2008 V20.2 Normal Routine History And Physical Well Child (6 - 12) 07/13/2008 250.00 DIABETES MELLITUS TYPE 2 07/13/2008 278.01 OBESITY MORBID 07/13/2008 401.9 Combined Systolic And Diastolic Elevation 07/13/2008 V20.2 Normal Routine History And Physical Well Child (6 - 12) 07/13/2008 250.00 DIABETES MELLITUS TYPE 2 07/13/2008 278.01 OBESITY MORBID 07/13/2008 401.9 Combined Systolic And Diastolic Elevation 07/13/2008 V20.2 Normal Routine History And Physical Well Child (6 - 12) 07/13/2008 250.00 DIABETES MELLITUS TYPE 2 07/13/2008 278.01 OBESITY MORBID 07/13/2008 401.9 Combined Systolic And Diastolic Elevation 07/13/2008 V20.2 Normal Routine History And Physical Well Child (6 - 12) 07/13/2008 250.00 DIABETES MELLITUS TYPE 2 07/13/2008 278.01 OBESITY MORBID 07/13/2008 401.9 Combined Systolic And Diastolic Elevation 07/13/2008 V20.2 Normal Routine History And Physical Well Child (6 - 12) 07/13/2008 BENTON DO, EDWIN K 250.00 DIABETES MELLITUS TYPE 2 07/13/2008 BENTON DO, EDWIN K 278.01 OBESITY MORBID 07/13/2008 BENTON DO, EDWIN K 401.9 Combined Systolic And Diastolic Elevation 07/13/2008 BENTON DO, EDWIN K V20.2 Normal Routine History And Physical Well Child (6 - 12) 07/13/2008 BARRETT HERNANDEZ MD 250.00 DIABETES MELLITUS TYPE 2 07/13/2008 BARRETT HERNANDEZ MD 278.01 OBESITY MORBID 07/13/2008 BARRETT HERNANDEZ MD 401.9 Combined Systolic And Diastolic Elevation 07/13/2008 BARRETT HERNANDEZ MD V20.2 Normal Routine History And Physical Well Child (6 - 12) 07/13/2008 LOLA PRUETT MD 250.00 DIABETES MELLITUS TYPE 2 07/13/2008 LOLA PRUETT MD 278.01 OBESITY MORBID 07/13/2008 LOLA PRUETT MD 401.9 Combined Systolic And Diastolic Elevation 07/13/2008 LOLA PRUETT MD V20.2 Normal Routine History And Physical Well Child (6 - 12) 07/13/2008 LOLA PRUETT MD 250.00 DIABETES MELLITUS TYPE 2 07/13/2008 LOLA PRUETT MD 278.01 OBESITY MORBID 07/13/2008 LOLA PRUETT MD 401.9 Combined Systolic And Diastolic Elevation 07/13/2008 LOLA PRUETT MD V20.2 Normal Routine History And Physical Well Child (6 - 12) 07/26/2008 278.00 OBESITY 07/26/2008 278.00 OBESITY 07/26/2008 278.00 OBESITY 07/26/2008 278.00 OBESITY 07/26/2008 278.00 OBESITY 07/26/2008 EDWIN BENTON DO 278.00 OBESITY 07/26/2008 BARRETT HERNANDEZ MD 278.00 OBESITY 07/26/2008 LOLA PRUETT MD 278.00 OBESITY 07/26/2008 LOLA PRUETT MD 278.00 OBESITY 08/29/2008 845.00 Ankle Sprain Right 08/29/2008 845.00 Ankle Sprain Right 08/29/2008 845.00 Ankle Sprain Right 08/29/2008 845.00 Ankle Sprain Right 08/29/2008 845.00 Ankle Sprain Right 08/29/2008 EDWIN BENTON DO 845.00 Ankle Sprain Right 08/29/2008 BARRETT HERNANDEZ MD 845.00 Ankle Sprain Right 08/29/2008 LOLA PRUETT MD 845.00 Ankle Sprain Right 08/29/2008 LOLA PRUETT MD 845.00 Ankle Sprain Right 09/06/2008 Ot 327.23 11/24/2008 380.10 Otitis Externa - Both Ears 11/24/2008 380.10 Otitis Externa - Both Ears 11/24/2008 380.10 Otitis Externa - Both Ears 11/24/2008 380.10 Otitis Externa - Both Ears 11/24/2008 380.10 Otitis Externa - Both Ears 11/24/2008 BENTON DO, EDWIN K 380.10 Otitis Externa - Both Ears 11/24/2008 BARRETT HERNANDEZ MD 380.10 Otitis Externa - Both Ears 11/24/2008 LOLA PRUETT MD 380.10 Otitis Externa - Both Ears 11/24/2008 LOLA PRUETT MD 380.10 Otitis Externa - Both Ears 12/27/2008 277.7 Dysmetabolic Syndrome X 12/27/2008 296.00 BIPOLAR DISORDER 12/27/2008 477.9 Allergic Rhinitis 12/27/2008 277.7 Dysmetabolic Syndrome X 12/27/2008 296.00 BIPOLAR DISORDER 12/27/2008 477.9 Allergic Rhinitis 12/27/2008 277.7 Dysmetabolic Syndrome X 12/27/2008 296.00 BIPOLAR DISORDER 12/27/2008 477.9 Allergic Rhinitis 12/27/2008 277.7 Dysmetabolic Syndrome X 12/27/2008 296.00 BIPOLAR DISORDER 12/27/2008 477.9 Allergic Rhinitis 12/27/2008 277.7 Dysmetabolic Syndrome X 12/27/2008 296.00 BIPOLAR DISORDER 12/27/2008 477.9 Allergic Rhinitis 12/27/2008 BENTON DO, EDWIN K 277.7 Dysmetabolic Syndrome X 12/27/2008 BENTON DO, EDWIN K 296.00 BIPOLAR DISORDER 12/27/2008 BENTON DO, EDWIN K 477.9 Allergic Rhinitis 12/27/2008 BARRETT HERNANDEZ MD 277.7 Dysmetabolic Syndrome X 12/27/2008 BARRETT HERNANDEZ MD 296.00 BIPOLAR DISORDER 12/27/2008 BARRETT HERNANDEZ MD 477.9 Allergic Rhinitis 12/27/2008 LOLA PRUETT MD 277.7 Dysmetabolic Syndrome X 12/27/2008 LOLA PRUETT MD 296.00 BIPOLAR DISORDER 12/27/2008 LOLA PRUETT MD 477.9 Allergic Rhinitis 12/27/2008 LOLA PRUETT MD 277.7 Dysmetabolic Syndrome X 12/27/2008 LOLA PRUETT MD 296.00 BIPOLAR DISORDER 12/27/2008 LOLA PRUETT MD 477.9 Allergic Rhinitis 07/01/2010 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 07/01/2010 309.81 AN PTSD 07/01/2010 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 07/01/2010 309.81 AN PTSD 07/01/2010 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 07/01/2010 309.81 AN PTSD 07/01/2010 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 07/01/2010 309.81 AN PTSD 07/01/2010 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 07/01/2010 309.81 AN PTSD 07/01/2010 EDWIN BENTON DO K 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 07/01/2010 EDWIN BENTON DO K 309.81 AN PTSD 07/01/2010 BARRETT HERNANDEZ MD 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 07/01/2010 BARRETT HERNANDEZ MD 309.81 AN PTSD 07/01/2010 LOLA PRUETT MD 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 07/01/2010 LOLA PRUETT MD 309.81 AN PTSD 07/01/2010 LOLA PRUETT MD 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 07/01/2010 LOLA PRUETT MD 309.81 AN PTSD 07/04/2010 790.29 Other Abnormal Glucose 07/04/2010 790.29 Other Abnormal Glucose 07/04/2010 790.29 Other Abnormal Glucose 07/04/2010 790.29 Other Abnormal Glucose 07/04/2010 790.29 Other Abnormal Glucose 07/04/2010 EDWIN BENTON DO 790.29 Other Abnormal Glucose 07/04/2010 BARRETT HERNANDEZ MD 790.29 Other Abnormal Glucose 07/04/2010 LOLA PRUETT MD 790.29 Other Abnormal Glucose 07/04/2010 LOLA PRUETT MD 790.29 Other Abnormal Glucose 09/18/2010 296.64 MO BIPOLAR I MIXED W PSYCHOTIC BEHAVIOR 09/18/2010 296.64 MO BIPOLAR I MIXED W PSYCHOTIC BEHAVIOR 09/18/2010 296.64 MO BIPOLAR I MIXED W PSYCHOTIC BEHAVIOR 09/18/2010 296.64 MO BIPOLAR I MIXED W PSYCHOTIC BEHAVIOR 09/18/2010 296.64 MO BIPOLAR I MIXED W PSYCHOTIC BEHAVIOR 09/18/2010 EDWIN BENTON DO K 296.64 MO BIPOLAR I MIXED W PSYCHOTIC BEHAVIOR 09/18/2010 BARRETT HERNANDEZ MD 296.64 MO BIPOLAR I MIXED W PSYCHOTIC BEHAVIOR 09/18/2010 LOLA PRUETT MD 296.64 MO BIPOLAR I MIXED W PSYCHOTIC BEHAVIOR 09/18/2010 LOLA PRUETT MD 296.64 MO BIPOLAR I MIXED W PSYCHOTIC BEHAVIOR 10/07/2010 Ot 789.01 ABDOMINAL PAIN, RIGHT UPPER QUADRANT 08/19/2011 729.5 Pain In Limb 08/19/2011 754.61 Congenital Pes Planus 08/19/2011 729.5 Pain In Limb 08/19/2011 754.61 Congenital Pes Planus 08/19/2011 729.5 Pain In Limb 08/19/2011 754.61 Congenital Pes Planus 08/19/2011 729.5 Pain In Limb 08/19/2011 754.61 Congenital Pes Planus 08/19/2011 729.5 Pain In Limb 08/19/2011 754.61 Congenital Pes Planus 08/19/2011 EDWIN BENTON DO 729.5 Pain In Limb 08/19/2011 EDWIN BENTON DO 754.61 Congenital Pes Planus 08/19/2011 BARRETT HERNANDEZ MD 729.5 Pain In Limb 08/19/2011 BARRETT HERNANDEZ MD 754.61 Congenital Pes Planus 08/19/2011 LOLA PRUETT MD 729.5 Pain In Limb 08/19/2011 LOLA PRUETT MD 754.61 Congenital Pes Planus 08/19/2011 LOLA PRUETT MD 729.5 Pain In Limb 08/19/2011 LOLA PRUETT MD 754.61 Congenital Pes Planus 09/08/2011 112.3 Candidiasis Of Skin And Nails 09/08/2011 112.3 Candidiasis Of Skin And Nails 09/08/2011 112.3 Candidiasis Of Skin And Nails 09/08/2011 112.3 Candidiasis Of Skin And Nails 09/08/2011 112.3 Candidiasis Of Skin And Nails 09/08/2011 EDWIN BENTON DO 112.3 Candidiasis Of Skin And Nails 09/08/2011 BARRETT HERNANDEZ MD 112.3 Candidiasis Of Skin And Nails 09/08/2011 LOLA PRUETT MD 112.3 Candidiasis Of Skin And Nails 09/08/2011 LOLA PRUETT MD 112.3 Candidiasis Of Skin And Nails 10/15/2012 LOLA PRUETT MD F Ot 041.04 STREPTOCOCCUS INFECTION NOS, GROUP D (EN 10/15/2012 SEBLE MCDANIEL, LOLA [place] Ot 250.02 DIAB CRISSY WO COMPL, TYPE II OR UNSPEC TY 10/15/2012 LOLA PRUETT MD Ot 278.01 MORBID OBESITY 10/15/2012 LOLA PRUETT MD Ot 599.0 URIN TRACT INFECTION NOS 10/15/2012 LOLA PRUETT MD Ot V03.82 PROPHYLACTIC VACC AGAINST STREPTOCOCCUS 10/15/2012 LOLA PRUETT MD Ot V85.54 BMI, PEDIATRIC, >=95TH PERCENTILE FOR A 10/26/2012 TOMMY JACOBSEN Ot 112.0 THRUSH 10/26/2012 TOMMY JACOBSEN Ot 250.00 DIAB CRISSY WO COMPL, TYPE II OR UNSPEC TY 10/26/2012 TOMMY JACOBSEN Ot 380.10 INFEC OTITIS EXTERNA NOS 10/26/2012 TOMMY JACOBSEN Ot V58.67 LONG-TERM (CURRENT) USE OF INSULIN 01/20/2013 V25.09 CONTRACEPTIVE COUNSELING - GENERAL 01/20/2013 V74.5 STD SCREEN 01/20/2013 EDWIN BENTON DO V25.09 CONTRACEPTIVE COUNSELING - GENERAL 01/20/2013 EDWIN BENTON DO V74.5 STD SCREEN 01/20/2013 DAVID MCDANIEL, BARRETT V25.09 CONTRACEPTIVE COUNSELING - GENERAL 01/20/2013 BARRETT HERNANDEZ MD V74.5 STD SCREEN 01/20/2013 LOLA PRUETT MD V25.09 CONTRACEPTIVE COUNSELING - GENERAL 01/20/2013 LOLA PRUETT MD V74.5 STD SCREEN 01/20/2013 LOLA PRUETT MD V25.09 CONTRACEPTIVE COUNSELING - GENERAL 01/20/2013 LOLA PRUETT MD V74.5 STD SCREEN 03/23/2013 EDWIN BENTON DO K 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 03/23/2013 DAVID MCDANIEL, BARRETT 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 03/23/2013 LOLA PRUETT MD 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 03/23/2013 LOLA PRUETT MD 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 08/10/2013 GINA HERNANDEZ MDISTA 465.9 UPPER RESPIRATORY INFECTION 08/10/2013 LOLA PRUETT MD 465.9 UPPER RESPIRATORY INFECTION 08/10/2013 LOLA PRUETT MD 465.9 UPPER RESPIRATORY INFECTION 03/15/2014 JOSE A PACK MD Ot 599.0 URIN TRACT INFECTION NOS 03/15/2014 JOSE A PACK MD Ot 789.09 ABDOMINAL PAIN, OTHER SPECIFIED SITE 07/30/2014 Ot 112.1 CANDIDAL VULVOVAGINITIS 07/30/2014 Ot 250.00 DIAB CRISSY WO COMPL, TYPE II OR UNSPEC TY 07/30/2014 Ot 623.8 NONINFLAM DIS VAGINA NEC 07/30/2014 Ot 640.03 THREATEN ABORT- ANTEPART 07/30/2014 Ot 647.83 INFECT DIS NEC- ANTEPART 07/30/2014 Ot 648.03 DIABETES-ANTEPARTUM 07/30/2014 Ot V58.67 LONG-TERM (CURRENT) USE OF INSULIN 08/03/2014 LOLA PRUETT MD 380.10 INFECTIVE OTITIS EXTERNA UNSPECIFIED 08/08/2014 Ot 623.8 NONINFLAM DIS VAGINA NEC 08/08/2014 Ot 640.03 THREATEN ABORT- ANTEPART 10/16/2014 Ot 277.7 10/16/2014 Ot 278.00 10/16/2014 Ot 296.00 10/16/2014 Ot 794.02 01/26/2015 Ot 277.7 01/26/2015 Ot 278.00 01/26/2015 Ot 296.00 01/26/2015 Ot 794.02 06/17/2015 Ot 277.7 06/17/2015 Ot 278.00 06/17/2015 Ot 296.00 06/17/2015 Ot 794.02 06/17/2015 JOSE A PACK MD Ot L03.311 CELLULITIS OF ABDOMINAL WALL 06/17/2015 Ot 277.7 06/17/2015 Ot 278.00 06/17/2015 Ot 296.00 06/17/2015 Ot 794.02 06/25/2015 Ot 277.7 06/25/2015 Ot 278.00 06/25/2015 Ot 296.00 06/25/2015 Ot 794.02 06/25/2015 Ot 277.7 06/25/2015 Ot 278.00 06/25/2015 Ot 296.00 06/25/2015 Ot 794.02 06/26/2015 STEVE REYNOSO MD Ot E11.9 TYPE 2 DIABETES MELLITUS WITHOUT COMPLIC 06/26/2015 STEVE REYNOSO MD Ot I10 ESSENTIAL (PRIMARY) HYPERTENSION 06/26/2015 STEVE REYNOSO MD Ot L02.211 CUTANEOUS ABSCESS OF ABDOMINAL WALL 06/26/2015 STEVE REYNOSO MD Ot Z23 ENCOUNTER FOR IMMUNIZATION 06/26/2015 STEVE REYNOSO MD Ot Z79.4 POSTIE (CURRENT) USE OF INSULIN 06/26/2015 STEVE REYNOSO MD Ot Z91.14 PATIENT'S OTHER NONCOMPLIANCE WITH MEDIC 06/26/2015 STEVE REYNOSO MD, Ot Z91.19 PATIENT'S NONCOMPLIANCE W OT MEDICAL TR 10/03/2015 TOMMY JACOBSEN Ot O20.0 THREATENED 10/03/2015 TOMMY JACOBSEN Ot O23.41 UNSP INFCT OF URINARY TRACT IN 10/03/2015 TOMMY JACOBSEN Ot Z3A.01 LESS THAN 8 WEEKS GESTATION OF 10/03/2015 Ot 277.7 DYSMETABOLIC SYNDROME X 10/03/2015 Ot 278.00 OBESITY, NOS 10/03/2015 Ot 296.00 BIPOLAR I DISORDER, SINGLE MANIC EPISODE 10/03/2015 Ot 794.02 ABN ELECTROENCEPHALOGRAM 10/04/2015 ASHLEY , SHEELA K Ot O20.0 THREATENED 10/04/2015 ASHLEYJewel PARSON SHEELA K Ot Z3A.01 LESS THAN 8 WEEKS GESTATION OF 10/05/2015 TOMMY JACOBSEN Ot O20.0 THREATENED 10/05/2015 OTMMY JACOBSEN Ot O23.41 UNSP INFCT OF URINARY TRACT IN 10/05/2015 TOMMY JACOBSEN Ot Z3A.01 LESS THAN 8 WEEKS GESTATION OF 10/05/2015 ASHLEYJewel PARSON SHEELA K Ot O20.0 THREATENED 10/05/2015 ASHLEY DO, SHEELA K Ot Z3A.01 LESS THAN 8 WEEKS GESTATION OF 12/18/2015 Ot 277.7 DYSMETABOLIC SYNDROME X 12/18/2015 Ot 278.00 OBESITY, NOS 12/18/2015 Ot 296.00 BIPOLAR I DISORDER, SINGLE MANIC EPISODE 12/18/2015 Ot 794.02 ABN ELECTROENCEPHALOGRAM 03/02/2016 MATTHEW THAKKAR MD Ot A41.9 SEPSIS, UNSPECIFIED ORGANISM 03/02/2016 MATTHEW THAKKAR MD Ot E10.65 TYPE 1 DIABETES MELLITUS WITH HYPERGLYCE 03/02/2016 MATTHEW THAKKAR MD Ot E66.01 MORBID (SEVERE) OBESITY DUE TO EXCESS CA 03/02/2016 MATTHEW THAKKAR MD Ot E87.1 HYPO-OSMOLALITY AND HYPONATREMIA 03/02/2016 MATTHEW THAKKAR MD, Ot E87.2 ACIDOSIS 03/02/2016 MATTHEW THAKKAR MD, Ot F31.9 BIPOLAR DISORDER, UNSPECIFIED 03/02/2016 MATTHEW THAKKAR MD, Ot F41.9 ANXIETY DISORDER, UNSPECIFIED 03/02/2016 MATTHEW THAKKAR MD, Ot I10 ESSENTIAL (PRIMARY) HYPERTENSION 03/02/2016 MATTHEW THAKKAR MD, Ot L03.112 CELLULITIS OF LEFT AXILLA 03/02/2016 MATTHEW THAKKAR MD, Ot 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 03/02/2016 MATTHEW THAKKAR MD, Ot Z23 ENCOUNTER FOR IMMUNIZATION 03/02/2016 MATTHEW THAKKAR MD, Ot Z68.41 BODY MASS INDEX (BMI) 40.0-44.9, ADULT 03/02/2016 MATTHEW THAKKAR MD, Ot Z79.4 POSTIE (CURRENT) USE OF INSULIN 03/02/2016 MATTHEW THAKKAR MD, Ot Z91.14 PATIENT'S OTHER NONCOMPLIANCE WITH MEDIC 03/02/2016 MATTHEW THAKKAR MD, Ot Z91.19 PATIENT'S NONCOMPLIANCE W [facility] MEDICAL TR 03/06/2016 STEVE REYNOSO MD Ot A41.9 SEPSIS, UNSPECIFIED ORGANISM 03/06/2016 STEVE REYNOSO MD Ot E11.65 TYPE 2 DIABETES MELLITUS WITH HYPERGLYCE 03/06/2016 STEVE REYNOSO MD, Ot E66.01 MORBID (SEVERE) OBESITY DUE TO EXCESS CA 03/06/2016 STEVE REYNOSO MD, Ot F31.9 BIPOLAR DISORDER, UNSPECIFIED 03/06/2016 STEVE REYNOSO MD Ot I10 ESSENTIAL (PRIMARY) HYPERTENSION 03/06/2016 STEVE REYNOSO MD Ot L03.112 CELLULITIS OF LEFT AXILLA 03/06/2016 STEVE REYNOSO MD Ot L03.313 CELLULITIS OF CHEST WALL 03/06/2016 STEVE REYNOSO MD Ot 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 03/06/2016 STEVE REYNOSO MD Ot Z79.4 MCFP (CURRENT) USE OF INSULIN 09/29/2016 JOSE A PACK MD Ot E11.9 TYPE 2 DIABETES MELLITUS WITHOUT COMPLIC 09/29/2016 JOSE A PACK MD Ot E66.01 MORBID (SEVERE) OBESITY DUE TO EXCESS CA 09/29/2016 JOSE A PACK MD Ot S91.312A LACERATION WITHOUT FOREIGN BODY, LEFT FO 09/29/2016 JOSE A PACK MD Ot W25.XXXA CONTACT WITH [place], INITIAL ENCOUN 09/29/2016 JOSE A PACK MD Ot Y99.8 OTHER EXTERNAL CAUSE STATUS 09/29/2016 JOSE A PACK MD Ot Z23 ENCOUNTER FOR IMMUNIZATION 09/29/2016 JOSE A PACK MD, Ot Z79.4 [facility] (CURRENT) USE OF INSULIN 10/11/2016 FRAN MCDANIEL, MIN Clarke Ot S91.312D LACERATION WITHOUT FOREIGN BODY, LEFT FO 12/22/2016 ALEJANDRO TY APRN Ot E13.10 OTH DIABETES MELLITUS WITH KETOACIDOSIS 12/22/2016 ALEJANDRO TY APRN Ot E66.9 OBESITY, UNSPECIFIED 12/22/2016 ALEJANDRO TY APRN Ot F31.9 BIPOLAR DISORDER, UNSPECIFIED 12/22/2016 ALEJANDRO TY APRN Ot F41.9 ANXIETY DISORDER, UNSPECIFIED 12/22/2016 ALEJANDRO TY APRN Ot H60.92 UNSPECIFIED OTITIS EXTERNA, LEFT EAR 12/22/2016 ALEJANDRO TY APRN Ot H92.02 OTALGIA, LEFT EAR 12/22/2016 ALEJANDRO TY APRN Ot Z68.42 BODY MASS INDEX (BMI) 45.0-49.9, ADULT 12/22/2016 ALEJANDRO TY APRN Ot Z79.82 POSTIE (CURRENT) USE OF ASPIRIN 12/22/2016 ALEJANDRO TY APRN Ot Z90.89 ACQUIRED ABSENCE OF OTHER ORGANS 12/22/2016 ALEJANDRO TY APRN Ot Z98.890 OTHER SPECIFIED POSTPROCEDURAL STATES 12/24/2016 ALEJANDRO TY APRN Ot E13.10 OTH DIABETES MELLITUS WITH KETOACIDOSIS 12/24/2016 TY, PETER [employer] Ot E66.9 OBESITY, UNSPECIFIED 12/24/2016 ALEJANDRO TY WIRING MECHANIC Ot F31.9 BIPOLAR DISORDER, UNSPECIFIED 12/24/2016 ALEJANDRO TY WIRING MECHANIC Ot F41.9 ANXIETY DISORDER, UNSPECIFIED 12/24/2016 ALEJANDRO TY WIRING MECHANIC Ot H60.92 UNSPECIFIED OTITIS EXTERNA, LEFT EAR 12/24/2016 ALEJANDRO TY APRN Ot H92.02 OTALGIA, LEFT EAR 12/24/2016 ALEJANDRO TY APRN Ot Z68.42 BODY MASS INDEX (BMI) 45.0-49.9, ADULT 12/24/2016 ALEJANDRO TY APRN Ot Z79.82 [facility]FP (CURRENT) USE OF ASPIRIN 12/24/2016 ALEJANDRO TY APRN Ot Z90.89 ACQUIRED ABSENCE OF OTHER ORGANS 12/24/2016 ALEJANDRO TY APRN Ot Z98.890 OTHER SPECIFIED POSTPROCEDURAL STATES 03/11/2017 TOMMY JACOBSEN Ot E11.65 TYPE 2 DIABETES MELLITUS WITH HYPERGLYCE 03/11/2017 TOMMY JACOBSEN Ot E66.01 MORBID (SEVERE) OBESITY DUE TO EXCESS CA 03/11/2017 TOMMY JACOBSEN Ot F31.9 BIPOLAR DISORDER, UNSPECIFIED 03/11/2017 TOMMY JACOBSEN Ot F41.9 ANXIETY DISORDER, UNSPECIFIED 03/11/2017 TOMMY JACOBSEN Ot I10 ESSENTIAL (PRIMARY) HYPERTENSION 03/11/2017 TOMMY JACOBSEN Ot R73.9 HYPERGLYCEMIA, UNSPECIFIED 03/11/2017 TOMMY JACOBSEN Ot Z68.42 BODY MASS INDEX (BMI) 45.0-49.9, ADULT 03/11/2017 TOMMY JACOBSEN Ot Z79.4 POSTIE (CURRENT) USE OF INSULIN 03/11/2017 TOMMY JACOBSEN Ot Z82.49 FAMILY HX OF ISCHEM HEART DIS AND OTH DI 03/11/2017 TOMMY JACOBSEN Ot Z90.89 ACQUIRED ABSENCE OF OTHER ORGANS 03/15/2017 TOMMY JACOBSEN Ot E11.65 TYPE 2 DIABETES MELLITUS WITH HYPERGLYCE 03/15/2017 TOMMY JACOBSEN Ot E66.01 MORBID (SEVERE) OBESITY DUE TO EXCESS CA 03/15/2017 TOMMY JACOBSEN Ot F31.9 BIPOLAR DISORDER, UNSPECIFIED 03/15/2017 TOMMY JACOBSEN Ot F41.9 ANXIETY DISORDER, UNSPECIFIED 03/15/2017 TOMMY JACOBSEN Ot I10 ESSENTIAL (PRIMARY) HYPERTENSION 03/15/2017 TOMMY JACOBSEN Ot R73.9 HYPERGLYCEMIA, UNSPECIFIED 03/15/2017 TOMMY JACOBSEN Ot Z68.42 BODY MASS INDEX (BMI) 45.0-49.9, ADULT 03/15/2017 TOMMY JACOBSEN Ot Z79.4 [facility]FP (CURRENT) USE OF INSULIN 03/15/2017 TOMMY JACOBSEN Ot Z82.49 FAMILY HX OF ISCHEM HEART DIS AND OTH DI 03/15/2017 TOMMY JACOBSEN Ot Z90.89 ACQUIRED ABSENCE OF OTHER ORGANS Procedures Code Description [place] [address] A1C (IN-HOUSE) 06/04/2012 18562 ROUTINE VENIPUNCTURE 06/17/2012 50594 CMP 06/17/2012 98095 LIPID PANEL 06/17/2012 88338 URINE TEST (IN-HOUSE) 01/20/2013 78110 UA W/ CULTURE IF INDICATED 01/20/2013 57799 GC/CHLAM URINE (STATE) 01/24/2013 J1030 DEPO MEDROL 40 MG INJ 03/23/2013 J3301 KENALOG INJ, PER 10 MG 03/23/2013 24049 THERAPUTIC INJ SQ/IM 03/23/2013 92639 A1C (IN-HOUSE) 09/01/2013 [id number] DRAINAGE OF R UP ARM SKIN WITH DRAIN DEV 03/04/2016 Results Test Result Range Complete blood count (CBC) with automated white blood cell (WBC) differential - 02/27/16 15:57 Blood leukocytes automated count (number/volume) 25.1 10*3/uL 4.3-11.0 Blood erythrocytes automated count (number/volume) 4.54 10*6/uL 4.35-5.85 Venous blood hemoglobin measurement (mass/volume) 12.2 g/dL 11.5-16.0 Blood hematocrit (volume fraction) 36 % 35-52 Automated erythrocyte mean corpuscular volume 78 [foz_us] 80-99 Automated erythrocyte mean corpuscular hemoglobin (mass per erythrocyte) 27 pg 25-34 Automated erythrocyte mean corpuscular hemoglobin concentration measurement (mass/volume) 34 g/dL 32-36 Automated erythrocyte distribution width ratio 12.6 % 10.0- 14.5 Automated blood platelet count (count/volume) 300 10*3/uL 130-400 Automated blood platelet mean volume measurement 11.0 [foz_us] 7.4-10.4 Automated blood neutrophils/100 leukocytes 81 % 42-75 Automated blood lymphocytes/100 leukocytes 11 % 12-44 Blood monocytes/100 leukocytes 8 % 0-12 Automated blood eosinophils/100 leukocytes 0 % 0-10 Automated blood basophils/100 leukocytes 0 % 0-10 Blood neutrophils automated count (number/volume) 20.4 10*3 1.8-7.8 Blood lymphocytes automated count (number/volume) 2.7 10*3 1.0-4.0 Blood monocytes automated count (number/volume) 2.0 10*3 0.0- 1.0 Automated eosinophil count 0.0 10*3/uL 0.0-0.3 Automated blood basophil count (count/volume) 0.0 10*3/uL 0.0-0.1 PT panel in platelet poor plasma by coagulation assay - 02/27/16 15:57 Prothrombin time (PT) in platelet poor plasma by coagulation assay 14.8 s 12.2-14.7 INR in platelet poor plasma or blood by coagulation assay 1.2 0.8-1.4 Activated partial thromboplastin time (aPTT) in platelet poor plasma bycoagulation assay - 02/27/16 15:57 Activated partial thromboplastin time (aPTT) in platelet poor plasma bycoagulation assay 32 s 24-35 Blood lactic acid measurement (moles/volume) - 02/27/16 15:57 Blood lactic acid measurement (moles/volume) 1.0 mmol/L 0.5- 2.0 Comprehensive metabolic panel - 02/27/16 15:57 Serum or plasma sodium measurement (moles/volume) 130 mmol/L 135-145 Serum or plasma potassium measurement (moles/volume) 4.1 mmol/L 3.6-5.0 Serum or plasma chloride measurement (moles/volume) 106 mmol/L 98-107 Carbon dioxide 11 mmol/L 21-32 Serum or plasma anion gap determination (moles/volume) 13 mmol/L 5-14 Serum or plasma urea nitrogen measurement (mass/volume) 2 mg/dL 7-18 Serum or plasma creatinine measurement (mass/volume) 0.74 mg/dL 0.60-1.30 Serum or plasma urea nitrogen/creatinine mass ratio 3 NRG Serum or plasma creatinine measurement with calculation of estimated glomerular filtration rate > NRG Serum or plasma glucose measurement (mass/volume) 313 mg/dL 70-105 Serum or plasma calcium measurement (mass/volume) 9.5 mg/dL 8.5-10.1 Serum or plasma total bilirubin measurement (mass/volume) 0.5 mg/dL 0.1-1.0 Serum or plasma alkaline phosphatase measurement (enzymatic activity/volume) 125 U/L 40-136 Serum or plasma aspartate aminotransferase measurement (enzymatic activity/volume) 9 U/L 5-34 Serum or plasma alanine aminotransferase measurement (enzymatic activity/volume) < U/L 0-55 Serum or plasma protein measurement (mass/volume) 7.0 g/dL 6.4-8.2 Serum or plasma albumin measurement (mass/volume) 3.5 g/dL 3.2-4.5 Blood manual differential performed detection - 02/27/16 15:57 Blood monocytes/100 leukocytes 1 % NRG Manual blood segmented neutrophils/100 leukocytes 79 % NRG Blood band neutrophils/100 leukocytes 4 % NRG Manual blood lymphocytes/100 leukocytes 16 % NRG Manual eosinophils/100 leukocytes in nose 0 % NRG Manual blood basophils/100 leukocytes 0 % NRG Blood erythrocyte morphology finding identification NORMAL [facility] Bacterial blood culture - 02/27/16 15:57 FREE TEXT EXTERNAL SEE COMMENT NRG QUANTITY OF GROWTH Isolated [facility] Bacterial blood culture [id number] [facility] Bacterial blood culture - 02/27/16 16:18 Bacterial blood culture NG [facility] Capillary blood glucose measurement by glucometer (mass/volume) - 02/27/16 21:02 Capillary blood glucose measurement by glucometer (mass/volume) 393 mg/dL 70-110 Complete blood count (CBC) with automated white blood cell (WBC) differential - 02/28/16 05:40 Blood leukocytes automated count (number/volume) 20.9 10*3/uL 4.3-11.0 Blood erythrocytes automated count (number/volume) 4.54 10*6/uL 4.35-5.85 Venous blood hemoglobin measurement (mass/volume) 12.3 g/dL 11.5-16.0 Blood hematocrit (volume fraction) 36 % 35-52 Automated erythrocyte mean corpuscular volume 80 [foz_us] 80-99 Automated erythrocyte mean corpuscular hemoglobin (mass per erythrocyte) 27 pg 25-34 Automated erythrocyte mean corpuscular hemoglobin concentration measurement (mass/volume) 34 g/dL 32-36 Automated erythrocyte distribution width ratio 12.8 % 10.0- 14.5 Automated blood platelet count (count/volume) 305 10*3/uL 130-400 Automated blood platelet mean volume measurement 11.2 [foz_us] 7.4-10.4 Automated blood neutrophils/100 leukocytes 92 % 42-75 Automated blood lymphocytes/100 leukocytes 5 % 12-44 Blood monocytes/100 leukocytes 3 % 0-12 Automated blood eosinophils/100 leukocytes 0 % 0-10 Automated blood basophils/100 leukocytes 0 % 0-10 Blood neutrophils automated count (number/volume) 19.2 10*3 1.8-7.8 Blood lymphocytes automated count (number/volume) 1.1 10*3 1.0-4.0 Blood monocytes automated count (number/volume) 0.6 10*3 0.0- 1.0 Automated eosinophil count 0.0 10*3/uL 0.0-0.3 Automated blood basophil count (count/volume) 0.0 10*3/uL 0.0-0.1 Comprehensive metabolic panel - 02/28/16 05:40 Serum or plasma sodium measurement (moles/volume) 133 mmol/L 135-145 Serum or plasma potassium measurement (moles/volume) 4.6 mmol/L 3.6-5.0 Serum or plasma chloride measurement (moles/volume) 112 mmol/L 98-107 Carbon dioxide 7 mmol/L 21-32 Serum or plasma anion gap determination (moles/volume) 14 mmol/L 5-14 Serum or plasma urea nitrogen measurement (mass/volume) 9 mg/dL 7-18 Serum or plasma creatinine measurement (mass/volume) 0.75 mg/dL 0.60-1.30 Serum or plasma urea nitrogen/creatinine mass ratio 12 NRG Serum or plasma creatinine measurement with calculation of estimated glomerular filtration rate > NRG Serum or plasma glucose measurement (mass/volume) 331 mg/dL 70-105 Serum or plasma calcium measurement (mass/volume) 9.3 mg/dL 8.5-10.1 Serum or plasma total bilirubin measurement (mass/volume) 0.2 mg/dL 0.1-1.0 Serum or plasma alkaline phosphatase measurement (enzymatic activity/volume) 126 U/L 40-136 Serum or plasma aspartate aminotransferase measurement (enzymatic activity/volume) 4 U/L 5-34 Serum or plasma alanine aminotransferase measurement (enzymatic activity/volume) 8 U/L 0-55 Serum or plasma protein measurement (mass/volume) 6.8 g/dL 6.4-8.2 Serum or plasma albumin measurement (mass/volume) 3.3 g/dL 3.2-4.5 Capillary blood glucose measurement by glucometer (mass/volume) - 02/28/16 06:15 Capillary blood glucose measurement by glucometer (mass/volume) 295 mg/dL 70-110 Capillary blood glucose measurement by glucometer (mass/volume) - 02/28/16 10:59 Capillary blood glucose measurement by glucometer (mass/volume) 299 mg/dL 70-110 Capillary blood glucose measurement by glucometer (mass/volume) - 02/28/16 15:55 Capillary blood glucose measurement by glucometer (mass/volume) 317 mg/dL 70-110 Capillary blood glucose measurement by glucometer (mass/volume) - 02/28/16 20:49 Capillary blood glucose measurement by glucometer (mass/volume) 324 mg/dL 70-110 Capillary blood glucose measurement by glucometer (mass/volume) - 02/29/16 05:46 Capillary blood glucose measurement by glucometer (mass/volume) 281 mg/dL 70-110 Complete blood count (CBC) with automated white blood cell (WBC) differential - 02/29/16 06:40 Blood leukocytes automated count (number/volume) 21.1 10*3/uL 4.3-11.0 Blood erythrocytes automated count (number/volume) 4.12 10*6/uL 4.35-5.85 Venous blood hemoglobin measurement (mass/volume) 11.2 g/dL 11.5-16.0 Blood hematocrit (volume fraction) 33 % 35-52 Automated erythrocyte mean corpuscular volume 80 [foz_us] 80-99 Automated erythrocyte mean corpuscular hemoglobin (mass per erythrocyte) 27 pg 25-34 Automated erythrocyte mean corpuscular hemoglobin concentration measurement (mass/volume) 34 g/dL 32-36 Automated erythrocyte distribution width ratio 13.1 % 10.0- 14.5 Automated blood platelet count (count/volume) 373 10*3/uL 130-400 Automated blood platelet mean volume measurement 11.1 [foz_us] 7.4-10.4 Automated blood neutrophils/100 leukocytes 86 % 42-75 Automated blood lymphocytes/100 leukocytes 9 % 12-44 Blood monocytes/100 leukocytes 5 % 0-12 Automated blood eosinophils/100 leukocytes 0 % 0-10 Automated blood basophils/100 leukocytes 0 % 0-10 Blood neutrophils automated count (number/volume) 18.1 10*3 1.8-7.8 Blood lymphocytes automated count (number/volume) 2.0 10*3 1.0-4.0 Blood monocytes automated count (number/volume) 1.1 10*3 0.0- 1.0 Automated eosinophil count 0.0 10*3/uL 0.0-0.3 Automated blood basophil count (count/volume) 0.0 10*3/uL 0.0-0.1 Whole blood basic metabolic panel - 02/29/16 06:40 Serum or plasma sodium measurement (moles/volume) 134 mmol/L 135-145 Serum or plasma potassium measurement (moles/volume) 4.1 mmol/L 3.6-5.0 Serum or plasma chloride measurement (moles/volume) 115 mmol/L 98-107 Carbon dioxide 9 mmol/L 21-32 Serum or plasma anion gap determination (moles/volume) 10 mmol/L 5-14 Serum or plasma urea nitrogen measurement (mass/volume) 9 mg/dL 7-18 Serum or plasma creatinine measurement (mass/volume) 0.67 mg/dL 0.60-1.30 Serum or plasma urea nitrogen/creatinine mass ratio 13 NRG Serum or plasma creatinine measurement with calculation of estimated glomerular filtration rate > NRG Serum or plasma glucose measurement (mass/volume) 303 mg/dL 70-105 Serum or plasma calcium measurement (mass/volume) 8.6 mg/dL 8.5-10.1 Blood lactic acid measurement (moles/volume) - 02/29/16 09:47 Blood lactic acid measurement (moles/volume) 0.7 mmol/L 0.5- 2.0 Complete urinalysis with reflex to culture - 02/29/16 14:23 Urine color determination YELLOW NRG Urine clarity determination CLEAR NRG Urine pH measurement by test strip 6 5-9 Specific gravity of urine by test strip 1.020 1.016-1.022 Urine protein assay by test strip, semi-quantitative 1+ NEGATIVE Urine glucose detection by automated test strip 4+ NEGATIVE Erythrocytes detection in urine sediment by light microscopy NEGATIVE NEGATIVE Urine ketones detection by automated test strip 4+ NEGATIVE Urine nitrite detection by test strip NEGATIVE NEGATIVE Urine total bilirubin detection by test strip NEGATIVE NEGATIVE Urine urobilinogen measurement by automated test strip (mass/volume) NORMAL NORMAL Urine leukocyte esterase detection by dipstick 1+ NEGATIVE Automated urine sediment erythrocyte count by microscopy (number/high power field) NONE NRG Automated urine sediment leukocyte count by microscopy (number/high power field) [HPF] NRG Bacteria detection in urine sediment by light microscopy NEGATIVE NRG Squamous epithelial cells detection in urine sediment by light microscopy 2-5 NRG Crystals detection in urine sediment by light microscopy NONE NRG Casts detection in urine sediment by light microscopy NONE NRG Mucus detection in urine sediment by light microscopy NEGATIVE NRG Complete urinalysis with reflex to culture YES NRG Yeast detection in urine sediment by light microscopy MODERATE NRG Bacterial urine culture - 02/29/16 14:23 URINE CULTURE RESULTS 2 COLONY TYPES OBSERVED NRG Capillary blood glucose measurement by glucometer (mass/volume) - 02/29/16 14:40 Capillary blood glucose measurement by glucometer (mass/volume) 268 mg/dL 70-110 Capillary blood glucose measurement by glucometer (mass/volume) - 02/29/16 16:27 Capillary blood glucose measurement by glucometer (mass/volume) 282 mg/dL 70-110 Whole blood basic metabolic panel - 02/29/16 18:20 Serum or plasma sodium measurement (moles/volume) 135 mmol/L 135-145 Serum or plasma potassium measurement (moles/volume) 3.6 mmol/L 3.6-5.0 Serum or plasma chloride measurement (moles/volume) 113 mmol/L 98-107 Carbon dioxide 11 mmol/L 21-32 Serum or plasma anion gap determination (moles/volume) 11 mmol/L 5-14 Serum or plasma urea nitrogen measurement (mass/volume) 9 mg/dL 7-18 Serum or plasma creatinine measurement (mass/volume) 0.65 mg/dL 0.60-1.30 Serum or plasma urea nitrogen/creatinine mass ratio 14 NRG Serum or plasma creatinine measurement with calculation of estimated glomerular filtration rate > NRG Serum or plasma glucose measurement (mass/volume) 323 mg/dL 70-105 Serum or plasma calcium measurement (mass/volume) 8.3 mg/dL 8.5-10.1 Capillary blood glucose measurement by glucometer (mass/volume) - 02/29/16 21:57 Capillary blood glucose measurement by glucometer (mass/volume) 304 mg/dL 70-110 Whole blood basic metabolic panel - 03/01/16 04:01 Serum or plasma sodium measurement (moles/volume) 137 mmol/L 135-145 Serum or plasma potassium measurement (moles/volume) 3.3 mmol/L 3.6-5.0 Serum or plasma chloride measurement (moles/volume) 112 mmol/L 98-107 Carbon dioxide 13 mmol/L 21-32 Serum or plasma anion gap determination (moles/volume) 12 mmol/L 5-14 Serum or plasma urea nitrogen measurement (mass/volume) 8 mg/dL 7-18 Serum or plasma creatinine measurement (mass/volume) 0.56 mg/dL 0.60-1.30 Serum or plasma urea nitrogen/creatinine mass ratio 14 NRG Serum or plasma creatinine measurement with calculation of estimated glomerular filtration rate > NRG Serum or plasma glucose measurement (mass/volume) 250 mg/dL 70-105 Serum or plasma calcium measurement (mass/volume) 8.3 mg/dL 8.5-10.1 Complete blood count (CBC) with automated white blood cell (WBC) differential - 03/01/16 04:01 Blood leukocytes automated count (number/volume) 11.1 10*3/uL 4.3-11.0 Blood erythrocytes automated count (number/volume) 4.02 10*6/uL 4.35-5.85 Venous blood hemoglobin measurement (mass/volume) 10.8 g/dL 11.5-16.0 Blood hematocrit (volume fraction) 32 % 35-52 Automated erythrocyte mean corpuscular volume 79 [foz_us] 80-99 Automated erythrocyte mean corpuscular hemoglobin (mass per erythrocyte) 27 pg 25-34 Automated erythrocyte mean corpuscular hemoglobin concentration measurement (mass/volume) 34 g/dL 32-36 Automated erythrocyte distribution width ratio 13.2 % 10.0- 14.5 Automated blood platelet count (count/volume) 362 10*3/uL 130-400 Automated blood platelet mean volume measurement 10.9 [foz_us] 7.4-10.4 Automated blood neutrophils/100 leukocytes 62 % 42-75 Automated blood lymphocytes/100 leukocytes 28 % 12-44 Blood monocytes/100 leukocytes 8 % 0-12 Automated blood eosinophils/100 leukocytes 1 % 0-10 Automated blood basophils/100 leukocytes 0 % 0-10 Blood neutrophils automated count (number/volume) 6.9 10*3 1.8-7.8 Blood lymphocytes automated count (number/volume) 3.1 10*3 1.0-4.0 Blood monocytes automated count (number/volume) 0.9 10*3 0.0- 1.0 Automated eosinophil count 0.1 10*3/uL 0.0-0.3 Automated blood basophil count (count/volume) 0.0 10*3/uL 0.0-0.1 Serum or plasma phosphate measurement (mass/volume) - 03/01/16 04:01 Serum or plasma phosphate measurement (mass/volume) 2.9 mg/dL 2.3-4.7 Magnesium - 03/01/16 04:01 Magnesium 1.2 mg/dL 1.8-2.4 Capillary blood glucose measurement by glucometer (mass/volume) - 03/01/16 05:19 Capillary blood glucose measurement by glucometer (mass/volume) 220 mg/dL 70-110 Capillary blood glucose measurement by glucometer (mass/volume) - 03/01/16 10:37 Capillary blood glucose measurement by glucometer (mass/volume) 248 mg/dL 70-110 Capillary blood glucose measurement by glucometer (mass/volume) - 03/01/16 12:13 Capillary blood glucose measurement by glucometer (mass/volume) 233 mg/dL 70-110 Whole blood basic metabolic panel - 03/01/16 15:30 Serum or plasma sodium measurement (moles/volume) 136 mmol/L 135-145 Serum or plasma potassium measurement (moles/volume) 3.3 mmol/L 3.6-5.0 Serum or plasma chloride measurement (moles/volume) 109 mmol/L 98-107 Carbon dioxide 15 mmol/L 21-32 Serum or plasma anion gap determination (moles/volume) 12 mmol/L 5-14 Serum or plasma urea nitrogen measurement (mass/volume) 7 mg/dL 7-18 Serum or plasma creatinine measurement (mass/volume) 0.57 mg/dL 0.60-1.30 Serum or plasma urea nitrogen/creatinine mass ratio 12 NRG Serum or plasma creatinine measurement with calculation of estimated glomerular filtration rate > NRG Serum or plasma glucose measurement (mass/volume) 221 mg/dL 70-105 Serum or plasma calcium measurement (mass/volume) 8.4 mg/dL 8.5-10.1 Capillary blood glucose measurement by glucometer (mass/volume) - 03/01/16 19:10 Capillary blood glucose measurement by glucometer (mass/volume) 270 mg/dL 70-110 Capillary blood glucose measurement by glucometer (mass/volume) - 03/01/16 21:00 Capillary blood glucose measurement by glucometer (mass/volume) 242 mg/dL 70-110 Complete blood count (CBC) with automated white blood cell (WBC) differential - 03/02/16 05:44 Blood leukocytes automated count (number/volume) 9.8 10*3/uL 4.3-11.0 Blood erythrocytes automated count (number/volume) 4.41 10*6/uL 4.35-5.85 Venous blood hemoglobin measurement (mass/volume) 11.8 g/dL 11.5-16.0 Blood hematocrit (volume fraction) 35 % 35-52 Automated erythrocyte mean corpuscular volume 79 [foz_us] 80-99 Automated erythrocyte mean corpuscular hemoglobin (mass per erythrocyte) 27 pg 25-34 Automated erythrocyte mean corpuscular hemoglobin concentration measurement (mass/volume) 34 g/dL 32-36 Automated erythrocyte distribution width ratio 13.8 % 10.0- 14.5 Automated blood platelet count (count/volume) 470 10*3/uL 130-400 Automated blood platelet mean volume measurement 10.3 [foz_us] 7.4-10.4 Automated blood neutrophils/100 leukocytes 58 % 42-75 Automated blood lymphocytes/100 leukocytes 32 % 12-44 Blood monocytes/100 leukocytes 8 % 0-12 Automated blood eosinophils/100 leukocytes 2 % 0-10 Automated blood basophils/100 leukocytes 0 % 0-10 Blood neutrophils automated count (number/volume) 5.7 10*3 1.8-7.8 Blood lymphocytes automated count (number/volume) 3.1 10*3 1.0-4.0 Blood monocytes automated count (number/volume) 0.8 10*3 0.0- 1.0 Automated eosinophil count 0.2 10*3/uL 0.0-0.3 Automated blood basophil count (count/volume) 0.0 10*3/uL 0.0-0.1 Whole blood basic metabolic panel - 03/02/16 05:44 Serum or plasma sodium measurement (moles/volume) 141 mmol/L 135-145 Serum or plasma potassium measurement (moles/volume) 3.6 mmol/L 3.6-5.0 Serum or plasma chloride measurement (moles/volume) 111 mmol/L 98-107 Carbon dioxide 18 mmol/L 21-32 Serum or plasma anion gap determination (moles/volume) 12 mmol/L 5-14 Serum or plasma urea nitrogen measurement (mass/volume) 4 mg/dL 7-18 Serum or plasma creatinine measurement (mass/volume) 0.51 mg/dL 0.60-1.30 Serum or plasma urea nitrogen/creatinine mass ratio 8 NRG Serum or plasma creatinine measurement with calculation of estimated glomerular filtration rate > NRG Serum or plasma glucose measurement (mass/volume) 153 mg/dL 70-105 Serum or plasma calcium measurement (mass/volume) 8.8 mg/dL 8.5-10.1 Magnesium - 03/02/16 05:44 Magnesium 1.4 mg/dL 1.8-2.4 Complete blood count (CBC) with automated white blood cell (WBC) differential - 03/04/16 21:02 Blood leukocytes automated count (number/volume) 12.1 10*3/uL 4.3-11.0 Blood erythrocytes automated count (number/volume) 4.36 10*6/uL 4.35-5.85 Venous blood hemoglobin measurement (mass/volume) 11.7 g/dL 11.5-16.0 Blood hematocrit (volume fraction) 36 % 35-52 Automated erythrocyte mean corpuscular volume 81 [foz_us] 80-99 Automated erythrocyte mean corpuscular hemoglobin (mass per erythrocyte) 27 pg 25-34 Automated erythrocyte mean corpuscular hemoglobin concentration measurement (mass/volume) 33 g/dL 32-36 Automated erythrocyte distribution width ratio 13.0 % 10.0- 14.5 Automated blood platelet count (count/volume) 441 10*3/uL 130-400 Automated blood platelet mean volume measurement 10.4 [foz_us] 7.4-10.4 Automated blood neutrophils/100 leukocytes 63 % 42-75 Automated blood lymphocytes/100 leukocytes 26 % 12-44 Blood monocytes/100 leukocytes 9 % 0-12 Automated blood eosinophils/100 leukocytes 2 % 0-10 Automated blood basophils/100 leukocytes 0 % 0-10 Blood neutrophils automated count (number/volume) 7.6 10*3 1.8-7.8 Blood lymphocytes automated count (number/volume) 3.1 10*3 1.0-4.0 Blood monocytes automated count (number/volume) 1.0 10*3 0.0- 1.0 Automated eosinophil count 0.3 10*3/uL 0.0-0.3 Automated blood basophil count (count/volume) 0.0 10*3/uL 0.0-0.1 Blood lactic acid measurement (moles/volume) - 03/04/16 21:02 Blood lactic acid measurement (moles/volume) 2.5 mmol/L 0.5- 2.0 Comprehensive metabolic panel - 03/04/16 21:02 Serum or plasma sodium measurement (moles/volume) 139 mmol/L 135-145 Serum or plasma potassium measurement (moles/volume) 3.6 mmol/L 3.6-5.0 Serum or plasma chloride measurement (moles/volume) 101 mmol/L 98-107 Carbon dioxide 24 mmol/L 21-32 Serum or plasma anion gap determination (moles/volume) 14 mmol/L 5-14 Serum or plasma urea nitrogen measurement (mass/volume) 7 mg/dL 7-18 Serum or plasma creatinine measurement (mass/volume) 0.63 mg/dL 0.60-1.30 Serum or plasma urea nitrogen/creatinine mass ratio 11 NRG Serum or plasma creatinine measurement with calculation of estimated glomerular filtration rate > NRG Serum or plasma glucose measurement (mass/volume) 284 mg/dL 70-105 Serum or plasma calcium measurement (mass/volume) 8.9 mg/dL 8.5-10.1 Serum or plasma total bilirubin measurement (mass/volume) 0.2 mg/dL 0.1-1.0 Serum or plasma alkaline phosphatase measurement (enzymatic activity/volume) 124 U/L 40-136 Serum or plasma aspartate aminotransferase measurement (enzymatic activity/volume) 9 U/L 5-34 Serum or plasma alanine aminotransferase measurement (enzymatic activity/volume) 8 U/L 0-55 Serum or plasma protein measurement (mass/volume) 5.9 g/dL 6.4-8.2 Serum or plasma albumin measurement (mass/volume) 3.0 g/dL 3.2-4.5 Serum or plasma C reactive protein measurement (mass/volume) - 03/04/16 21:02 Serum or plasma C reactive protein measurement (mass/volume) 5.67 mg/dL 0.00-0.50 Bacterial blood culture - 03/04/16 21:02 Bacterial blood culture NG NRG Bacterial blood culture - 03/04/16 21:35 Bacterial blood culture NG NRG Gram stain microscopy - 03/04/16 22:53 GRAM STAIN RESULT MODERATE # GRAM POSITIVE COCCI NRG Bacteria identification in wound by culture - 03/04/16 22:53 Bacteria identification in wound by culture [id number] NR FREE TEXT EXTERNAL SENSITIVITY REPORTED AT 03-06-16 NRG QUANTITY OF GROWTH Scant Growth NRG MRSA AGAR Screening test for MRSA is NEGATIVE (Final to follow) [facility] Bacterial susceptibility panel - 03/04/16 22:53 Oxacillin susceptibility test by minimum inhibitory concentration 0.5 NRG Gentamicin susceptibility test by minimum inhibitory concentration >= NRG Clindamycin susceptibility test by minimum inhibitory concentration <= NRG Erythromycin susceptibility test by minimum inhibitory concentration >= NRG Trimethoprim/sulfamethoxazole susceptibility test by minimum inhibitoryconcentration <= NRG Vancomycin susceptibility test by minimum inhibitory concentration 1 NRG Levofloxacin susceptibility test by minimum inhibitory concentration 0.25 NRG Rifampin susceptibility test by minimum inhibitory concentration <= NRG Tetracycline susceptibility test by minimum inhibitory concentration <= NRG Serum or plasma lactate measurement (moles/volume) - 03/04/16 23:08 Serum or plasma lactate measurement (moles/volume) 1.9 mmol/L 0.5-2.0 Capillary blood glucose measurement by glucometer (mass/volume) - 03/05/16 05:45 Capillary blood glucose measurement by glucometer (mass/volume) 204 mg/dL 70-110 Complete blood count (CBC) with automated white blood cell (WBC) differential - 03/05/16 06:37 Blood leukocytes automated count (number/volume) 9.5 10*3/uL 4.3-11.0 Blood erythrocytes automated count (number/volume) 3.89 10*6/uL 4.35-5.85 Venous blood hemoglobin measurement (mass/volume) 10.6 g/dL 11.5-16.0 Blood hematocrit (volume fraction) 32 % 35-52 Automated erythrocyte mean corpuscular volume 82 [foz_us] 80-99 Automated erythrocyte mean corpuscular hemoglobin (mass per erythrocyte) 27 pg 25-34 Automated erythrocyte mean corpuscular hemoglobin concentration measurement (mass/volume) 33 g/dL 32-36 Automated erythrocyte distribution width ratio 12.9 % 10.0- 14.5 Automated blood platelet count (count/volume) 382 10*3/uL 130-400 Automated blood platelet mean volume measurement 10.1 [foz_us] 7.4-10.4 Automated blood neutrophils/100 leukocytes 56 % 42-75 Automated blood lymphocytes/100 leukocytes 29 % 12-44 Blood monocytes/100 leukocytes 11 % 0-12 Automated blood eosinophils/100 leukocytes 3 % 0-10 Automated blood basophils/100 leukocytes 0 % 0-10 Blood neutrophils automated count (number/volume) 5.3 10*3 1.8-7.8 Blood lymphocytes automated count (number/volume) 2.8 10*3 1.0-4.0 Blood monocytes automated count (number/volume) 1.1 10*3 0.0- 1.0 Automated eosinophil count 0.3 10*3/uL 0.0-0.3 Automated blood basophil count (count/volume) 0.0 10*3/uL 0.0-0.1 Whole blood basic metabolic panel - 03/05/16 06:37 Serum or plasma sodium measurement (moles/volume) 136 mmol/L 135-145 Serum or plasma potassium measurement (moles/volume) 3.4 mmol/L 3.6-5.0 Serum or plasma chloride measurement (moles/volume) 101 mmol/L 98-107 Carbon dioxide 24 mmol/L 21-32 Serum or plasma anion gap determination (moles/volume) 11 mmol/L 5-14 Serum or plasma urea nitrogen measurement (mass/volume) 7 mg/dL 7-18 Serum or plasma creatinine measurement (mass/volume) 0.51 mg/dL 0.60-1.30 Serum or plasma urea nitrogen/creatinine mass ratio 14 NRG Serum or plasma creatinine measurement with calculation of estimated glomerular filtration rate > NRG Serum or plasma glucose measurement (mass/volume) 224 mg/dL 70-105 Serum or plasma calcium measurement (mass/volume) 8.2 mg/dL 8.5-10.1 Serum or plasma C reactive protein measurement (mass/volume) - 03/05/16 06:37 Serum or plasma C reactive protein measurement (mass/volume) 5.18 mg/dL 0.00-0.50 Capillary blood glucose measurement by glucometer (mass/volume) - 03/05/16 10:51 Capillary blood glucose measurement by glucometer (mass/volume) 305 mg/dL 70-110 Capillary blood glucose measurement by glucometer (mass/volume) - 03/05/16 12:35 Capillary blood glucose measurement by glucometer (mass/volume) 284 mg/dL 70-110 Capillary blood glucose measurement by glucometer (mass/volume) - 03/05/16 15:24 Capillary blood glucose measurement by glucometer (mass/volume) 225 mg/dL 70-110 Capillary blood glucose measurement by glucometer (mass/volume) - 03/05/16 21:32 Capillary blood glucose measurement by glucometer (mass/volume) 187 mg/dL 70-110 Capillary blood glucose measurement by glucometer (mass/volume) - 03/06/16 05:06 Capillary blood glucose measurement by glucometer (mass/volume) 160 mg/dL 70-110 Automated blood complete blood count (hemogram) panel - 03/06/16 05:46 Blood leukocytes automated count (number/volume) 7.6 10*3/uL 4.3-11.0 Blood erythrocytes automated count (number/volume) 3.89 10*6/uL 4.35-5.85 Venous blood hemoglobin measurement (mass/volume) 10.5 g/dL 11.5-16.0 Blood hematocrit (volume fraction) 32 % 35-52 Automated erythrocyte mean corpuscular volume 83 [foz_us] 80-99 Automated erythrocyte mean corpuscular hemoglobin (mass per erythrocyte) 27 pg 25-34 Automated erythrocyte mean corpuscular hemoglobin concentration measurement (mass/volume) 32 g/dL 32-36 Automated erythrocyte distribution width ratio 12.9 % 10.0- 14.5 Automated blood platelet count (count/volume) 395 10*3/uL 130-400 Automated blood platelet mean volume measurement 9.9 [foz_us] 7.4-10.4 Whole blood basic metabolic panel - 03/06/16 05:46 Serum or plasma sodium measurement (moles/volume) 140 mmol/L 135-145 Serum or plasma potassium measurement (moles/volume) 3.7 mmol/L 3.6-5.0 Serum or plasma chloride measurement (moles/volume) 108 mmol/L 98-107 Carbon dioxide 20 mmol/L 21-32 Serum or plasma anion gap determination (moles/volume) 12 mmol/L 5-14 Serum or plasma urea nitrogen measurement (mass/volume) 7 mg/dL 7-18 Serum or plasma creatinine measurement (mass/volume) 0.52 mg/dL 0.60-1.30 Serum or plasma urea nitrogen/creatinine mass ratio 13 NRG Serum or plasma creatinine measurement with calculation of estimated glomerular filtration rate > NRG Serum or plasma glucose measurement (mass/volume) 168 mg/dL 70-105 Serum or plasma calcium measurement (mass/volume) 8.3 mg/dL 8.5-10.1 Capillary blood glucose measurement by glucometer (mass/volume) - 03/06/16 10:45 Capillary blood glucose measurement by glucometer (mass/volume) 180 mg/dL 70-110 Capillary blood glucose measurement by glucometer (mass/volume) - 03/11/17 17:37 Capillary blood glucose measurement by glucometer (mass/volume) 496 mg/dL 70-110 Complete blood count (CBC) with automated white blood cell (WBC) differential - 03/11/17 18:15 Blood leukocytes automated count (number/volume) 11.4 10*3/uL 4.3-11.0 Blood erythrocytes automated count (number/volume) 5.34 10*6/uL 4.35-5.85 Venous blood hemoglobin measurement (mass/volume) 13.9 g/dL 11.5-16.0 Blood hematocrit (volume fraction) 41 % 35-52 Automated erythrocyte mean corpuscular volume 76 [foz_us] 80-99 Automated erythrocyte mean corpuscular hemoglobin (mass per erythrocyte) 26 pg 25-34 Automated erythrocyte mean corpuscular hemoglobin concentration measurement (mass/volume) 34 g/dL 32-36 Automated erythrocyte distribution width ratio 13.3 % 10.0- 14.5 Automated blood platelet count (count/volume) 385 10*3/uL 130-400 Automated blood platelet mean volume measurement 11.5 [foz_us] 7.4-10.4 Automated blood neutrophils/100 leukocytes 65 % 42-75 Automated blood lymphocytes/100 leukocytes 28 % 12-44 Blood monocytes/100 leukocytes 6 % 0-12 Automated blood eosinophils/100 leukocytes 1 % 0-10 Automated blood basophils/100 leukocytes 0 % 0-10 Blood neutrophils automated count (number/volume) 7.4 10*3 1.8-7.8 Blood lymphocytes automated count (number/volume) 3.2 10*3 1.0-4.0 Blood monocytes automated count (number/volume) 0.7 10*3 0.0- 1.0 Automated eosinophil count 0.1 10*3/uL 0.0-0.3 Automated blood basophil count (count/volume) 0.0 10*3/uL 0.0-0.1 Complete urinalysis with reflex to culture - 03/11/17 18:15 Urine color determination YELLOW NRG Urine clarity determination CLEAR NRG Urine pH measurement by test strip 5 5-9 Specific gravity of urine by test strip 1.010 1.016-1.022 Urine protein assay by test strip, semi-quantitative NEGATIVE NEGATIVE Urine glucose detection by automated test strip 4+ NEGATIVE Erythrocytes detection in urine sediment by light microscopy NEGATIVE NEGATIVE Urine ketones detection by automated test strip NEGATIVE NEGATIVE Urine nitrite detection by test strip NEGATIVE NEGATIVE Urine total bilirubin detection by test strip NEGATIVE NEGATIVE Urine urobilinogen measurement by automated test strip (mass/volume) NORMAL NORMAL Urine leukocyte esterase detection by dipstick 1+ NEGATIVE Automated urine sediment erythrocyte count by microscopy (number/high power field) NONE NRG Automated urine sediment leukocyte count by microscopy (number/high power field) NONE NRG Bacteria detection in urine sediment by light microscopy TRACE NRG Squamous epithelial cells detection in urine sediment by light microscopy 2-5 NRG Crystals detection in urine sediment by light microscopy NONE NRG Casts detection in urine sediment by light microscopy NONE NRG Mucus detection in urine sediment by light microscopy NEGATIVE NRG Complete urinalysis with reflex to culture NO NRG Comprehensive metabolic panel - 03/11/17 18:15 Serum or plasma sodium measurement (moles/volume) 129 mmol/L 135-145 Serum or plasma potassium measurement (moles/volume) 3.7 mmol/L 3.6-5.0 Serum or plasma chloride measurement (moles/volume) 97 mmol/L 98-107 Carbon dioxide 22 mmol/L 21-32 Serum or plasma anion gap determination (moles/volume) 10 mmol/L 5-14 Serum or plasma urea nitrogen measurement (mass/volume) 7 mg/dL 7-18 Serum or plasma creatinine measurement (mass/volume) 0.77 mg/dL 0.60-1.30 Serum or plasma urea nitrogen/creatinine mass ratio 9 NRG Serum or plasma creatinine measurement with calculation of estimated glomerular filtration rate > NRG Serum or plasma glucose measurement (mass/volume) 504 mg/dL 70-105 Serum or plasma calcium measurement (mass/volume) 9.5 mg/dL 8.5-10.1 Serum or plasma total bilirubin measurement (mass/volume) 0.3 mg/dL 0.1-1.0 Serum or plasma alkaline phosphatase measurement (enzymatic activity/volume) 125 U/L 40-136 Serum or plasma aspartate aminotransferase measurement (enzymatic activity/volume) 5 U/L 5-34 Serum or plasma alanine aminotransferase measurement (enzymatic activity/volume) 8 U/L 0-55 Serum or plasma protein measurement (mass/volume) 7.5 g/dL 6.4-8.2 Serum or plasma albumin measurement (mass/volume) 3.9 g/dL 3.2-4.5 Urine beta human chorionic gonadotropin (hCG) measurement - 03/11/17 18:15 Urine beta human chorionic gonadotropin (hCG) measurement NEGATIVE NEGATIVE Capillary blood glucose measurement by glucometer (mass/volume) - 03/11/17 19:28 Capillary blood glucose measurement by glucometer (mass/volume) 193 mg/dL 70-110 Complete urinalysis with reflex to culture - 11/24/18 19:44 Urine color determination YELLOW NRG Urine clarity determination SL CLOUDY NRG Urine pH measurement by test strip 6 5-9 Specific gravity of urine by test strip 1.025 1.016-1.022 Urine protein assay by test strip, semi-quantitative 4+ NEGATIVE Urine glucose detection by automated test strip 4+ NEGATIVE Erythrocytes detection in urine sediment by light microscopy 1+ NEGATIVE Urine ketones detection by automated test strip 1+ NEGATIVE Urine nitrite detection by test strip NEGATIVE NEGATIVE Urine total bilirubin detection by test strip NEGATIVE NEGATIVE Urine urobilinogen measurement by automated test strip (mass/volume) NORMAL NORMAL Urine leukocyte esterase detection by dipstick NEGATIVE NEGATIVE Automated urine sediment erythrocyte count by microscopy (number/high power field) RARE NRG Automated urine sediment leukocyte count by microscopy (number/high power field) RARE NRG Bacteria detection in urine sediment by light microscopy TRACE NRG Squamous epithelial cells detection in urine sediment by light microscopy 25-50 NRG Crystals detection in urine sediment by light microscopy NONE NRG Casts detection in urine sediment by light microscopy NONE NRG Mucus detection in urine sediment by light microscopy NEGATIVE NRG Complete urinalysis with reflex to culture NO NRG Complete blood count (CBC) with automated white blood cell (WBC) differential - 11/24/18 20:13 Blood leukocytes automated count (number/volume) 12.4 10*3/uL 4.3-11.0 Blood erythrocytes automated count (number/volume) 4.29 10*6/uL 4.35-5.85 Venous blood hemoglobin measurement (mass/volume) 10.8 g/dL 11.5-16.0 Blood hematocrit (volume fraction) 32 % 35-52 Automated erythrocyte mean corpuscular volume 75 [foz_us] 80-99 Automated erythrocyte mean corpuscular hemoglobin (mass per erythrocyte) 25 pg 25-34 Automated erythrocyte mean corpuscular hemoglobin concentration measurement (mass/volume) 33 g/dL 32-36 Automated erythrocyte distribution width ratio 13.3 % 10.0- 14.5 Automated blood platelet count (count/volume) 419 10*3/uL 130-400 Automated blood platelet mean volume measurement 11.2 [foz_us] 7.4-10.4 Automated blood neutrophils/100 leukocytes 70 % 42-75 Automated blood lymphocytes/100 leukocytes 23 % 12-44 Blood monocytes/100 leukocytes 5 % 0-12 Automated blood eosinophils/100 leukocytes 2 % 0-10 Automated blood basophils/100 leukocytes 0 % 0-10 Blood neutrophils automated count (number/volume) 8.7 10*3 1.8-7.8 Blood lymphocytes automated count (number/volume) 2.9 10*3 1.0-4.0 Blood monocytes automated count (number/volume) 0.6 10*3 0.0- 1.0 Automated eosinophil count 0.2 10*3/uL 0.0-0.3 Automated blood basophil count (count/volume) 0.0 10*3/uL 0.0-0.1 Comprehensive metabolic panel - 11/24/18 20:13 Serum or plasma sodium measurement (moles/volume) 135 mmol/L 135-145 Serum or plasma potassium measurement (moles/volume) 3.9 mmol/L 3.6-5.0 Serum or plasma chloride measurement (moles/volume) 105 mmol/L 98-107 Carbon dioxide 21 mmol/L 21-32 Serum or plasma anion gap determination (moles/volume) 9 mmol/L 5-14 Serum or plasma urea nitrogen measurement (mass/volume) 14 mg/dL 7-18 Serum or plasma creatinine measurement (mass/volume) 1.36 mg/dL 0.60-1.30 Serum or plasma urea nitrogen/creatinine mass ratio 10 NRG Serum or plasma creatinine measurement with calculation of estimated glomerular filtration rate 58 NRG Serum or plasma glucose measurement (mass/volume) 236 mg/dL 70-105 Serum or plasma calcium measurement (mass/volume) 9.4 mg/dL 8.5-10.1 Serum or plasma total bilirubin measurement (mass/volume) 0.2 mg/dL 0.1-1.0 Serum or plasma alkaline phosphatase measurement (enzymatic activity/volume) 114 U/L 40-136 Serum or plasma aspartate aminotransferase measurement (enzymatic activity/volume) 7 U/L 5-34 Serum or plasma alanine aminotransferase measurement (enzymatic activity/volume) 9 U/L 0-55 Serum or plasma protein measurement (mass/volume) 7.0 g/dL 6.4-8.2 Serum or plasma albumin measurement (mass/volume) 3.7 g/dL 3.2-4.5 CALCIUM CORRECTED 9.6 mg/dL 8.5-10.1 Capillary blood glucose measurement by glucometer (mass/volume) - 11/24/18 20:20 Capillary blood glucose measurement by glucometer (mass/volume) 246 mg/dL 70-110 Encounters ACCT No. Visit Date/Time Discharge Status Pt. Type Provider Facility Loc./Unit Complaint [id number] 08/03/2014 14:18:00 08/03/2014 23:59:59 CLS Outpatient LOLA PRUETT MD [id number] 09/01/2013 16:44:00 09/01/2013 23:59:59 CLS Outpatient LOLA PRUETT MD [id number] 08/10/2013 14:11:00 08/10/2013 23:59:59 CLS Outpatient BARRETT HERNANDEZ MD [id number] 03/23/2013 16:23:00 03/23/2013 23:59:59 CLS Outpatient EDWIN BENTON DO [id number] 06/17/2012 09:02:00 06/17/2012 23:59:59 CLS Outpatient [id number] 06/04/2012 14:00:00 06/04/2012 23:59:59 CLS Outpatient [id number] 06/04/2012 14:00:00 06/04/2012 23:59:59 [facility] Outpatient [id number] 01/20/2013 11:33:00 Document Registration [id number] 10/28/2012 15:06:00 Document Registration [id number] 11/24/2018 18:58:00 11/24/2018 22:02:00 DIS Emergency PATSY JENSEN [facility] ER NAUSEA [id number] 03/11/2017 16:44:00 03/11/2017 20:37:00 DIS Emergency TOMMY JACOBSEN [facility] ER HIGH BLOOD SUGAR [id number] 12/22/2016 17:58:00 12/22/2016 18:48:00 DIS Emergency ALEJANDRO TY APRN [facility] ER LT EAR PAIN/PRESSURE [id number] 10/11/2016 11:39:00 10/11/2016 11:53:00 DIS Emergency MIN PETERS MD [facility] ER STITCH REMOVAL L FOOT [id number] 09/28/2016 23:27:00 09/29/2016 01:07:00 DIS Emergency JOSE A PACK MD [facility] ER GLASS IN L FOOT [id number] 03/04/2016 23:46:00 03/06/2016 13:45:00 DIS Inpatient STEVE REYNOSO MD [facility] [address] SEPSIS, ABSCESS, CELLULITIS [id number] 02/27/2016 17:39:00 03/02/2016 09:50:00 DIS Inpatient MATTHEW THAKKAR MD [facility] 4TH SEPSIS,CELLULITIS,HYPERGLYCEMIA,HYPONATREMIA [id number] 10/04/2015 18:29:00 10/04/2015 20:00:00 DIS Emergency ASHLEY DOSHEELA K [facility] ER CLOTTING;POSSIBLE MISCARIAGE [id number] 10/03/2015 21:09:00 10/03/2015 23:37:00 DIS Emergency TOMMY JAOCBSEN [facility] ER VAGINAL BLEEDING [id number] 06/25/2015 11:06:00 06/26/2015 12:40:00 DIS Inpatient STEVE REYNOSO MD [facility] 4TH ABSCESS/CELLULITIS ABDOMINAL WALL [id number] 06/17/2015 22:53:00 06/17/2015 23:17:00 DIS Emergency JOSE A PACK MD [facility] ER SPIDER/INSECT BITE [id number] 03/15/2014 09:22:00 03/15/2014 12:44:00 DIS Emergency JOSE A PACK MD [facility] ER LOWER RIGHT SIDE ABD PAIN [id number] 10/26/2012 18:05:00 10/26/2012 21:54:00 DIS Emergency TOMMY JACOBSEN [facility] ER ELEVATED BLOOD SUGAR [id number] 10/12/2012 16:35:00 10/15/2012 14:30:00 DIS Inpatient SEBLE MCDANIEL, [place] [facility] 4TH DIABETIC KETOACIDOSIS,UTI [id number] 12/18/2015 11:28:00 Document Registration [id number] 12/18/2015 11:28:00 Document Registration [id number] 12/18/2015 11:28:00 Document Registration [id number] 12/18/2015 11:28:00 Document Registration [id number] 12/18/2015 11:28:00 Document Registration [id number] 12/18/2015 11:28:00 Document Registration [id number] 12/18/2015 11:27:00 Document Registration [id number] 10/16/2014 09:37:00 Document Registration [id number] 10/16/2014 09:37:00 Document Registration [id number] 08/08/2014 00:16:00 Document Registration [id number] 07/30/2014 12:40:00 Document Registration [id number] 09/05/2008 20:46:00 Document Registration
== END 2018-11-24 22:02 | disposition home or self-care (01) ==
LOC: EDUNIT# 18:57 → ER 18:58
DX: R11.2 Nausea with vomiting, unspecified (principal); E11.10 Type 2 diabetes mellitus with ketoacidosis without coma; I10 Essential (primary) hypertension; F41.9 Anxiety disorder, unspecified; F31.9 Bipolar disorder, unspecified; E66.01 Morbid (severe) obesity due to excess calories; Z88.1 Allergy status to other antibiotic agents; Z87.59 Personal history of other complications of pregnancy, childbirth and the puerperium; Z79.4 Long term (current) use of insulin; Z82.49 Family history of ischemic heart disease and other diseases of the circulatory system; Z80.0 Family history of malignant neoplasm of digestive organs; Z68.35 Body mass index [BMI] 35.0-35.9, adult; Z90.89 Acquired absence of other organs
CPT/HCPCS: 36415; 74176; 80053; 81000; 82962; 84703; 85025; 96361; 96374

== ENCOUNTER 2019-07-25 19:50 | Observation (INO) | payer SELFPAY ==
[~2019-07-25] VITALS: Ht 162.6 cm; Wt 139.0 kg
[~2019-07-25 19:50] MED LIST changes: +PROC-1 PO
[2019-07-25] MEDS ORDERED: AUGMENTIN 875 MG TAB (AMOXICILLIN/CLAVULANATE) ONE (20:12)
[2019-07-25] MEDS ORDERED: HYDROcodone/APAP 5 MG/325 MG (LORTAB) TAB PO ONE (20:15)
--- NOTE | 2019-07-25 20:31 | NUR ---
Patient requests RN check her blood sugar. Finger stick shows 595. Patient tearful, stating she has not taken her insulin in months. She states she gets Humulin 70/30 over the counter at [facility] and occasionally will take 30 units with meals. She does not check her blood sugars.
[2019-07-25] MEDS ORDERED: inSUlin (REGULAR) HUMAN 1 UNIT/0.01 ML (CHARGE PER UNIT) SC ONE (20:45)
[2019-07-25] MEDS ORDERED: NS IV 1000 ML 1,000 ML IV SCH ×2 (20:45→22:00)
[2019-07-25] MEDS ORDERED: meTOproloL SUCCINATE 50 MG (TOPROL XL) TAB PO SCH (20:45)
[2019-07-25 20:50] LABS: BASOPHILS % (AUTO) 0 % (0-10); EOSINOPHILS # (AUTO) 0.2 10^3/uL (0.0-0.3); EOSINOPHILS % (AUTO) 2 % (0-10); HEMATOCRIT 33 % (35-52); HEMOGLOBIN 11.3 G/DL (11.5-16.0); LYMPHOCYTES % (AUTO) 29 % (12-44); MEAN CORPUSCULAR HEMOGLOBIN 26 PG (25-34); MEAN CORPUSCULAR HGB CONC 35 G/DL (32-36); MEAN CORPUSCULAR VOLUME 75 FL (80-99); MEAN PLATELET VOLUME 11.8 FL (7.4-10.4); MONOCYTES # (AUTO) 0.6 X 10^3 (0.0-1.0); MONOCYTES % (AUTO) 6 % (0-12); NEUTROPHILS # (AUTO) 6.6 X 10^3 (1.8-7.8); NEUTROPHILS % (AUTO) 64 % (42-75); PLATELET COUNT 314 10^3/uL (130-400); RED CELL DISTRIBUTION WIDTH 13.4 % (10.0-14.5); WHITE BLOOD COUNT 10.3 10^3/uL (4.3-11.0)
[2019-07-25] MEDS ORDERED: inSUlin (REGULAR) HUMAN 1 UNIT/0.01 ML (CHARGE PER UNIT) IV ONE ×2 (21:00→22:30)
[2019-07-25 21:09] LABS: ALBUMIN 3.6 GM/DL (3.2-4.5); BILIRUBIN,TOTAL 0.2 MG/DL (0.1-1.0); CALCIUM 8.8 MG/DL (8.5-10.1); CREATININE SERUM 1.79 MG/DL (0.60-1.30); TOTAL PROTEIN 7.1 GM/DL (6.4-8.2)
[2019-07-25 21:41] LABS: BILIRUBIN,URINE NEGATIVE (NEGATIVE); CLARITY,URINE CLEAR; COLOR,URINE YELLOW; GLUCOSE, URINE (UA) 3+ (NEGATIVE); KETONES,URINE NEGATIVE (NEGATIVE); LEUKOCYTE ESTERASE ,URINE NEGATIVE (NEGATIVE); NITRITE,URINE NEGATIVE (NEGATIVE); PROTEIN,URINE 2+ (NEGATIVE)
[2019-07-25 21:49] LABS: BACTERIA,URINE FEW /HPF; YEAST,URINE FEW /HPF
--- NOTE | 2019-07-25 22:52 | ED EENT ---
History of Present Illness General Chief Complaint: Dental Problems/Pain Stated Complaint: MOUTH PAIN Nursing Triage Note: Patient ambulatory to ER with complaint of left upper dental pain. Patient states she broke the left upper wisdom tooth 1 month ago and has been having pain since. She has not taken Ibuprofen or tylenol today. She has used OTC orajel with no relief. Source: patient Exam Limitations: no limitations History of Present Illness Date Seen by Provider: Jul 25, 2019 Time Seen by Provider: 20:08 Initial Comments 23-year-old female who presents to the emergency room with complaints of left upper dental first molar pain and swelling. She reports breaking off one of her wisdom teeth one-month ago due to cavities and has had pain ever since. She has not taken any pain medication at this time. She has tried no csxg-klj-ccbdsum medications for pain relief. Timing/Duration: this morning Associated Symptoms: tooth pain Allergies and Home Medications Allergies Coded Allergies: vancomycin (Unverified Allergy, Mild, 11/24/18) HIVES Home Medications Insulin Aspart 300 Units/3 Ml Solution, 25 UNITS SC AC, (Reported) Insulin Detemir 100 Unit/1 Ml Insuln.pen, 35 UNITS SC BID, (Reported) Prochlorperazine Maleate 10 Mg Tablet, 10 MG PO Q8H Prescribed by: PATSY JENSEN on 11/24/182152 Patient Home Medication List Home Medication List Reviewed: Yes Review of Systems Review of Systems Constitutional: see HPI; No chills, No fever Mouth: see HPI, other (dental pain) All Other Systems Reviewed Negative Unless Noted: Yes Past Xnebcrw-Mpqeya-Cjiisn Hx Past Med/Social Hx: Reviewed Nursing Past Med/Soc Hx Patient Social History Alcohol Use: Denies Use Number of Drinks Today: AA Alcohol Beverage of Choice: Beer Recreational Drug Use: No 2nd Hand Smoke Exposure: No Recent Foreign Travel: No Contact w/Someone Who Travel: No Recent Infectious Disease Expo: No Recent Hopitalizations: Yes (DC'D ON 11/17/18) Physical Abuse: No Sexual Abuse: No Mistreated: No Fear: No Immunizations Up To Date Tetanus Booster (TDap): Unknown PED Vaccines UTD: Yes Date of Pneumonia Vaccine: October 15, 2012 Date of Influenza Vaccine: Mar 02, 2016 Seasonal Allergies Seasonal Allergies: Yes Past Medical History Surgeries: Yes (LEFT HIP, PLASTIC SURGERY TO FACE SECONDARY TO DOG BITE-"OVER 200 STITCHES") Orthopedic, Tonsillectomy Respiratory: No Cardiac: Yes Hypertension Neurological: No Last Menstrual Period: Jun 23, 2019 Reproductive Disorders: Yes (MISCARRIAGES) Female Reproductive Disorders: Denies Gastrointestinal: No Musculoskeletal: Yes (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) Endocrine: Yes (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, MORBID OBESTIY) Diabetes, Insulin dep HEENT: No Tonsilitis Cancer: No Psychosocial: Yes Anxiety, Bipolar, Depression Integumentary: No Blood Disorders: No Adverse Reaction/Blood Tranf: No Family Medical History Reviewed Nursing Family Hx Alcoholism Arthritis Asthma Cardiovascular disease Colon cancer Diabetes mellitus Hypertension Psychosocial problem Respiratory disorder Visual disorder Diabetes, Hypertension, Vascular Disease Physical Exam Vital Signs Vital Signs - First Documented 07/25/19 19:57 Temp 37.0 Pulse 118 Resp 20 B/P (MAP) 192/111 (138) Pulse Ox 97 O2 Delivery Room Air Height, Weight, BMI Height: 5'4.00" Weight: 350lbs. 0.0oz. 158.231391je; 52.00 BMI Method:Stated General Appearance: WD/WN, no apparent distress Mouth/Throat: dental tenderness (left upper back molar see images) Cardiovascular: normal peripheral pulses, no edema, no gallop, no JVD, no murmur, tachycardia Respiratory: chest non-tender, lungs clear, normal breath sounds, no res piratory distress, no accessory muscle use Neurologic/Psychiatric: alert, normal mood/affect, oriented x 3 Skin: normal color, warm/dry Procedures/Interventions Suture Size: 4-0 Progress/Results/Core Measures Results/Orders Lab Results Laboratory Tests Test 07/25/19 20:26 07/25/19 20:42 07/25/19 21:32 07/25/19 21:58 Range/Units Glucometer 595 *H 409 *H 70-110 MG/DL White Blood Count 10.3 4.3-11.0 10^3/uL Red Blood Count 4.32 L 4.35-5.85 10^6/uL Hemoglobin 11.3 L 11.5-16.0 G/DL Hematocrit 33 L 35-52 % Mean Corpuscular Volume 75 L 80-99 FL Mean Corpuscular Hemoglobin 26 25-34 PG Mean Corpuscular Hemoglobin Concent 35 32-36 G/DL Red Cell Distribution Width 13.4 10.0-14.5 % Platelet Count 314 130-400 10^3/uL Mean Platelet Volume 11.8 H 7.4-10.4 FL Neutrophils (%) (Auto) 64 42-75 % Lymphocytes (%) (Auto) 29 12-44 % Monocytes (%) (Auto) 6 0-12 % Eosinophils (%) (Auto) 2 0-10 % Basophils (%) (Auto) 0 0-10 % Neutrophils # (Auto) 6.6 1.8-7.8 X 10^3 Lymphocytes # (Auto) 3.0 1.0-4.0 X 10^3 Monocytes # (Auto) 0.6 0.0-1.0 X 10^3 Eosinophils # (Auto) 0.2 0.0-0.3 10^3/uL Basophils # (Auto) 0.0 0.0-0.1 10^3/uL Sodium Level 128 L 135-145 MMOL/L Potassium Level 4.0 3.6-5.0 MMOL/L Chloride Level 99 98-107 MMOL/L Carbon Dioxide Level 18 L 21-32 MMOL/L Anion Gap 11 5-14 MMOL/L Blood Urea Nitrogen 14 7-18 MG/DL Creatinine 1.79 H 0.60-1.30 MG/DL Estimat Glomerular Filtration Rate 43 BUN/Creatinine Ratio 8 Glucose Level 604 *H 70-105 MG/DL Calcium Level 8.8 8.5-10.1 MG/DL Corrected Calcium 9.1 8.5-10.1 MG/DL Total Bilirubin 0.2 0.1-1.0 MG/DL Aspartate Amino Transf (AST/SGOT) 7 5-34 U/L Alanine Aminotransferase (ALT/SGPT) 7 0-55 U/L Alkaline Phosphatase 146 H 40-136 U/L Total Protein 7.1 6.4-8.2 GM/DL Albumin 3.6 3.2-4.5 GM/DL Urine Color YELLOW Urine Clarity CLEAR Urine pH 6.0 5-9 Urine Specific Hatley <=1.005 1.016-1.022 Urine Protein 2+ H NEGATIVE Urine Glucose (UA) 3+ H NEGATIVE Urine Ketones NEGATIVE NEGATIVE Urine Nitrite NEGATIVE NEGATIVE Urine Bilirubin NEGATIVE NEGATIVE Urine Urobilinogen 0.2 < = 1.0 MG/DL Urine Leukocyte Esterase NEGATIVE NEGATIVE Urine RBC (Auto) TRACE-I NEGATIVE Urine RBC NONE /HPF Urine WBC 5-10 H /HPF Urine Squamous Epithelial Cells 10-25 H /HPF Urine Crystals NONE /LPF Urine Bacteria FEW H /HPF Urine Casts NONE /LPF Urine Mucus NEGATIVE /LPF Urine Yeast FEW H /HPF Urine Culture Indicated YES Test 07/25/19 23:05 Range/Units Glucometer 335 H 70-110 MG/DL My Orders Orders - KYM PRINCE Hydrocodone/Apap 5/325 Tablet (Lortab 5 (07/25/19 20:15) Amoxicillin/Clavulanate Tablet (Augmenti (07/26/19 07:00) Accucheck Stat ONCE (07/25/19 20:16) Amoxicillin/Clavulanate Tablet (Augmenti (07/25/19 20:12) Comprehensive Metabolic Panel (07/25/19 20:32) Ua Culture If Indicated (07/25/19 20:32) Ed Iv/Invasive Line Start (07/25/19 20:32) Cbc With Automated Diff (07/25/19 20:32) Ns Iv 1000 Ml (Sodium Chloride 0.9%) (07/25/19 20:45) Metoprolol Succinate (Xl) Tab (Toprol Xl (07/25/19 20:45) Insulin (Regular) Human (Humulin R (Per (07/25/19 21:00) Urine Culture (07/25/19 21:32) Ns Iv 1000 Ml (Sodium Chloride 0.9%) (07/25/19 22:00) Insulin (Regular) Human (Humulin R (Per (07/25/19 22:30) Medications Given in ED Current Medications Medications Dose Ordered Sig/Samuel Route Start Time Stop Time Status Last Admin Dose Admin Acetaminophen/ Hydrocodone Bitart 1 tab ONCE ONCE PO 07/25/19 20:15 07/25/19 20:16 DC 07/25/19 20:15 1 TAB Insulin Human Regular 5 unit ONCE ONCE IV 07/25/19 21:00 07/25/19 21:01 DC 07/25/19 20:51 5 UNIT Insulin Human Regular 5 unit ONCE ONCE IV 07/25/19 22:30 07/25/19 22:31 DC 07/25/19 22:32 5 UNIT Vital Signs/I&O 07/25/19 19:57 Temp 37.0 Pulse 118 Resp 20 B/P (MAP) 192/111 (138) Pulse Ox 97 O2 Delivery Room Air Blood Pressure Mean: 138 FSBG Bedside Testing Finger Stick Blood Glucose: 409 Blood Glucose Action Taken: RN AND PROVIDER NOTIFIED Progress Progress Note : Time: 20:08 Progress Note The patient informed the RN that she has not been on her insulin or her blood pressure medicine for several months. She reports that she previously had been by her insulin over the counter at [facility] has not taken her blood sugar or her blood pressure medication. We will obtain labs and urine. 2200: I have informed the patient of her laboratory findings at this time. We have given her a total of 10 units of insulin IV and 2 L of normal saline and her blood sugar has improved. She received 50 mg Toprol-XL for her blood pressure. Her dental abscess is very small and given her normal white count I do not believe that this is causing any sepsis. Case was discussed with Dr. Cedillo at this time and she agrees to admit the patient to her services as an observation status. Patient agrees with plan of care. Departure Communication (Admissions) Time/Spoke to Admitting Phy: 22:00 Dr. Lenore Cedillo Impression Primary Impression: Hyperglycemia Additional Impressions: Hypertension Dental abscess Disposition: HOME, SELF-CARE Condition: Stable/Unchanged Admissions Decision to Admit Reason: Admit from ER (General) Decision to Admit/Date: Jul 25, 2019 Time/Decision to Admit Time: 22:00 Departure-Patient Inst. Referrals: [facility] (PCP/Family) Primary Care Physician Images Mouth/Nose 1 - Caries, Fracture Tooth, Swelling, Tenderness KYM PRINCE Jul 25, 2019 22:52
--- NOTE | 2019-07-25 23:26 | NUR ---
REPORT RECEIVED FROM EDMOND HERNÁNDEZ AT THIS TIME.
--- NOTE | 2019-07-25 23:50 | NUR ---
ROBERT SHANE admitted to room 412-1, with an admitting diagnosis of HYPERGLYCEMIA, HYPERTENSION, AND DENTAL ABSCESS TOOTH, on 07/25/19 from [facility] VIA WHEELCHAIR, accompanied by STAFF.ROBERT SHANE introduced to surroundings, call light, bed controls, phone, TV, temperature control, lights, meal times, smoking policy, visitor policy, side rail policy, bathrooms and showers. Patient Rights given to patient in the handbook. ROBERT SHANE verbalizes understanding that [facility] is not responsible for the loss or damage to any personal effects or valuables that are kept in the patients posession during their hospitalization. ROBERT SHANE verbalizes understanding of Interdisciplinary Patient Education. Patient and/or family were informed about the Rapid Response Team and its purpose.
[2019-07-26] MEDS: HYDROcodone/APAP 5 MG/325 MG (LORTAB) TAB PO PRN ×2 (01:55→12:13)
[2019-07-26] MEDS: NS IV 1000 ML 1,000 ML IV SCH ×2 (01:56→10:46)
[2019-07-26 02:02] VITALS: BP 172/94
[2019-07-26 03:25] VITALS: BP 153/97
[2019-07-26 05:25] LABS: BASOPHILS % (AUTO) 0 % (0-10); EOSINOPHILS # (AUTO) 0.2 10^3/uL (0.0-0.3); EOSINOPHILS % (AUTO) 2 % (0-10); HEMATOCRIT 29 % (35-52); HEMOGLOBIN 10.2 G/DL (11.5-16.0); LYMPHOCYTES % (AUTO) 33 % (12-44); MEAN CORPUSCULAR HGB CONC 35 G/DL (32-36); MEAN CORPUSCULAR VOLUME 76 FL (80-99); MEAN PLATELET VOLUME 11.6 FL (7.4-10.4); MONOCYTES # (AUTO) 0.5 X 10^3 (0.0-1.0); MONOCYTES % (AUTO) 6 % (0-12); NEUTROPHILS # (AUTO) 5.4 X 10^3 (1.8-7.8); NEUTROPHILS % (AUTO) 59 % (42-75); PLATELET COUNT 303 10^3/uL (130-400); RED CELL DISTRIBUTION WIDTH 13.1 % (10.0-14.5); WHITE BLOOD COUNT 9.1 10^3/uL (4.3-11.0)
[2019-07-26 05:32] LABS: MEAN CORPUSCULAR HEMOGLOBIN 26 PG (25-34)
[2019-07-26 05:50] LABS: ALANINE AMINOTRANSFERASE 7 U/L (0-55); ALBUMIN 3.1 GM/DL (3.2-4.5); ALKALINE PHOSPHATASE 112 U/L (40-136); BILIRUBIN,TOTAL 0.2 MG/DL (0.1-1.0); BUN/CREATININE RATIO 9; CALCIUM 8.2 MG/DL (8.5-10.1); CARBON DIOXIDE 17 MMOL/L (21-32); CHLORIDE 107 MMOL/L (98-107); CREATININE SERUM 1.24 MG/DL (0.60-1.30); GFR ESTIMATED > 60; GLUCOSE 304 MG/DL (70-105); POTASSIUM 3.8 MMOL/L (3.6-5.0); SODIUM 134 MMOL/L (135-145); TOTAL PROTEIN 6.1 GM/DL (6.4-8.2)
[2019-07-26] MEDS: inSUlin ASPART (NovoLOG) 1 UNIT/0.01 ML (CHARGE PER UNIT) SC SCH ×2 (06:25→12:11)
[2019-07-26] MEDS ORDERED: AUGMENTIN 875 MG TAB (AMOXICILLIN/CLAVULANATE) PO SCH ×2 (07:00→09:00)
[2019-07-26 08:00] VITALS: BP 137/79
--- NOTE | 2019-07-26 09:22 | History & Physical ---
[facility] STUDENT 07/26/19 0922: HPI History of Present Illness: Lizz Rios is a 23yo F who presented to the ED yesterday due to L tooth pain that had been worsening over the last week or so. She reports that eating or drinking worsened the pain. Pain is localized to the area of her last upper molar tooth. While in the ED, she requested that her blood sugar be checked; it was elevated to 604. She reports knowing that she has diabetes, but said she is unsure what type. She says she didn't have any symptoms of hyperglycemia, but she also says she cannot tell when her sugars are high. Update this morning: Patient reports feeling well this morning, and has no complaints. Pain in her tooth has improved; she thinks this is due to the antibiotics and pain medication. Source: patient Exam Limitations: no limitations Date seen by provider: Jul 26, 2019 Time Seen by Provider: 08:30 Attending Physician Ping Cedillo MD [facility] Consult Date of Admission Jul 25, 2019 at 22:30 Home Medications Home Medications Reviewed patient Home Medication Reconciliation performed by pharmacy medication reconciliations water pollution control technician and/or nursing. Patients Allergies have been reviewed. Allergies Coded Allergies: vancomycin (Unverified Allergy, Mild, 11/24/18) HIVES UCM-Blkoja-Fzmwhc Hx Patient Social History Alcohol Use: Denies Use Recreational Drug Use: No 2nd Hand Smoke Exposure: No Recent Foreign Travel: No Contact w/other who traveled: No Recent Hopitalizations: Yes (DC'D ON 11/17/18) Recent Infectious Disease Expo: No Immunizations Up To Date Tetanus Booster (TDap): Unknown Date of Pneumonia Vaccine: Jul 09, 2015 Date of Influenza Vaccine: Apr 08, 2019 Past Medical History Past Medical History 1. Diabetes Mellitus type 2 2. Morbid Obesity 3. Bipolar Disorder with Psychotic features 4. Hypertension-pt. stopped taking medications 5. OCD 6. Legg Calve-Perthes's disease 7. Developmental learning disability 8. Genital herpes Past Surgical History 1. Tonsillectomy and adenoidectomy 2. Hip surgery at age of 6 3. Facial laceration repair after dog bite as child. Family Medical History Significant Family History: Diabetes, Hypertension, Vascular Disease Family History: Alcoholism Arthritis Asthma Cardiovascular disease Colon cancer Diabetes mellitus Hypertension Psychosocial problem Respiratory disorder Visual disorder Review of Systems (CHC) Constitutional: no symptoms reported EENTM: dental problems Respiratory: no symptoms reported Cardiovascular: no symptoms reported Gastrointestinal: no symptoms reported Genitourinary: no symptoms reported Musculoskeletal: no symptoms reported Skin: no symptoms reported Physical Exam-([facility]) Physical Exam Vital Signs VS - Last 72 Hours, by Label 07/25/19 07/25/19 07/26/19 07/26/19 19:57 23:21 02:02 03:25 Temp 37.0 37.0 36.8 36.8 Pulse 118 86 93 85 Resp B/P (MAP) 192/111 (138) 141/114 (138) 172/94 153/97 (115) Pulse Ox 97 97 100 98 O2 Delivery Room Air Room Air Room Air Room Air 07/26/19 07/26/19 07/26/19 07/26/19 03:25 08:00 08:00 12:00 Temp 36.8 36.3 36.3 Pulse 85 93 88 Resp B/P (MAP) 153/97 (115) 137/79 (98) 127/86 (100) Pulse Ox 98 99 99 99 O2 Delivery Room Air Room Air Room Air Room Air Capillary Refill : Less Than 3 Seconds General Appearance: no apparent distress, obese Eyes: Bilateral Eye PERRL, Bilateral Eye EOMI Neck: No lymphadenopathy (R), No lymphadenopathy (L), No tender lateral Respiratory: chest non-tender; No respiratory distress, No accessory muscle use Gastrointestinal: normal bowel sounds, non tender, soft Rectal: deferred Extremities: non-tender, no calf tenderness Neurologic/Psychiatric: alert, oriented x 3 Skin: normal color (with exception of mild axillary acanthosis nigricans), war m/dry Assessment/Plan Assessment/Plan Admission Dx 23yo F with PMH of obesity, Type 2 Diabetes Mellitus and HTN admitted with L molar tooth abscess, also found to have hyperglycemia (604) during workup. #Tooth Pain - Likely dental abscess - Started on amoxicillin/clavulanate 875mg BID - Hydrocodone Q6 PRN for pain - Encourage follow up with dentist for further treatment #HHS Secondary to Type 2 Diabetes Mellitus - Patient started on normal saline at rate of 100ml/h and 10U normal insulin while in ED - Insulin aspart to get blood sugar back in normal range; sugars trending down - most recent 274 - No anion gap on labs - Check A1c - Encourage regular monitoring of blood sugars and use of insulin to control blood sugar - Follow up with provider at [facility] #Hx of HTN - Patient reports not tolerating lisinopril - Can explore other options for treatment at primary care follow up appointment Can discharge to home today. Clinical Quality Measures DVT/VTE Risk/Contraindication: Risk Factor Score Per Nursin RFS Level Per Nursing on Admit: 1=Low/No VTE PPX Copy Copies To 1: PING CEDILLO MD, HOLLY R MD 07/28/19 4628: HPI History of Present Illness: Agree with above H&P,, reviewed with patient Source: patient Exam Limitations: no limitations Home Medications Allergies Coded Allergies: vancomycin (Unverified Allergy, Mild, 11/24/18) HIVES KGU-Umbmrc-Fppgrq Hx Family Medical History Significant Family History: Diabetes Family History: Alcoholism Arthritis Asthma Cardiovascular disease Colon cancer Diabetes mellitus Hypertension Psychosocial problem Respiratory disorder Visual disorder Review of Systems (CHC) Constitutional: no symptoms reported; No chills, No fever EENTM: dental problems, mouth pain, mouth swelling Respiratory: no symptoms reported; No cough, No short of breath Cardiovascular: no symptoms reported; No chest pain, No edema, No palpitations Gastrointestinal: no symptoms reported; No abdominal pain, No constipation, No diarrhea, No nausea, No vomiting Genitourinary: no symptoms reported; No dysuria, No frequency, No hematuria : No Musculoskeletal: no symptoms reported; No back pain, No joint pain, No muscle pain Skin: no symptoms reported; No lesions, No rash Psychiatric/Neurological: No Symptoms Reported Reviewed Test Results Reviewed Test Results Lab Laboratory Tests Test 07/25/19 23:05 07/26/19 05:15 07/26/19 11:46 Range/Units Glucometer 335 H 274 H 70-110 MG/DL White Blood Count 9.1 4.3-11.0 10^3/uL Red Blood Count 3.85 L 4.35-5.85 10^6/uL Hemoglobin 10.2 L 11.5-16.0 G/DL Hematocrit 29 L 35-52 % Mean Corpuscular Volume 76 L 80-99 FL Mean Corpuscular Hemoglobin 26 25-34 PG Mean Corpuscular Hemoglobin Concent 35 32-36 G/DL Red Cell Distribution Width 13.1 10.0-14.5 % Platelet Count 303 130-400 10^3/uL Mean Platelet Volume 11.6 H 7.4-10.4 FL Neutrophils (%) (Auto) 59 42-75 % Lymphocytes (%) (Auto) 33 12-44 % Monocytes (%) (Auto) 6 0-12 % Eosinophils (%) (Auto) 2 0-10 % Basophils (%) (Auto) 0 0-10 % Neutrophils # (Auto) 5.4 1.8-7.8 X 10^3 Lymphocytes # (Auto) 3.0 1.0-4.0 X 10^3 Monocytes # (Auto) 0.5 0.0-1.0 X 10^3 Eosinophils # (Auto) 0.2 0.0-0.3 10^3/uL Basophils # (Auto) 0.0 0.0-0.1 10^3/uL Sodium Level 134 L 135-145 MMOL/L Potassium Level 3.8 3.6-5.0 MMOL/L Chloride Level 107 98-107 MMOL/L Carbon Dioxide Level 17 L 21-32 MMOL/L Anion Gap 10 5-14 MMOL/L Blood Urea Nitrogen 11 7-18 MG/DL Creatinine 1.24 0.60-1.30 MG/DL Estimat Glomerular Filtration Rate > 60 BUN/Creatinine Ratio 9 Glucose Level 304 H 70-105 MG/DL Calcium Level 8.2 L 8.5-10.1 MG/DL Corrected Calcium 8.9 8.5-10.1 MG/DL Total Bilirubin 0.2 0.1-1.0 MG/DL Aspartate Amino Transf (AST/SGOT) 8 5-34 U/L Alanine Aminotransferase (ALT/SGPT) 7 0-55 U/L Alkaline Phosphatase 112 40-136 U/L Total Protein 6.1 L 6.4-8.2 GM/DL Albumin 3.1 L 3.2-4.5 GM/DL Physical Exam-([facility]) Physical Exam General Appearance: WD/WN, no apparent distress, obese HEENT: PERRL/EOMI, other (tender lower left jaw) Neck: non-tender, full range of motion, supple, normal inspection Respiratory: chest non-tender, lungs clear, normal breath sounds, no respiratory distress, no accessory muscle use Cardiovascular: normal peripheral pulses, regular rate, rhythm, no edema, no murmur Gastrointestinal: normal bowel sounds, non tender, soft, no organomegaly Back: no CVA tenderness, no vertebral tenderness Extremities: normal range of motion, non-tender, no calf tenderness, normal capillary refill Neurologic/Psychiatric: 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 II-XII nml as tested, no motor/sensory deficits, alert, normal mood/affect, oriented x 3 Skin: normal color (with exception of mild axillary acanthosis nigricans), warm/dry Lymphatic: no adenopathy Assessment/Plan Assessment/Plan Admission Status: Observation (1) Tooth abscess Status: Acute Assessment & Plan: - Started on antibiotics and set patient up with dental at [facility] (2) Diabetes mellitus, insulin dependent (IDDM), uncontrolled Status: Chronic Assessment & Plan: - Patient was started on insulin and had it vouchered at clinic (3) HTN (hypertension) Status: Chronic Assessment & Plan: - Started on norvasc, will have close f,u with Nguyen in clinic Qualifiers: Qualified Codes: I10 - Essential (primary) hypertension (4) BMI 50.0-59.9, adult Status: Chronic Assessment & Plan: - Discussed the need for weight loss given chronic c onditions Copy Copies To 1: PING CEDILLO MD Supervisory-Addendum Brief Verification & Attestation Participated in pt care: history Personally performed: exam Care discussed with: Medical Student Procedures: n/a Verification and Attestation of Medical Student E/M Service A medical student performed and documented this service in my presence. I reviewed and verified all information documented by the medical student and made modifications to such information, when appropriate. I personally performed the physical exam and medical decision making. Ping Cedillo, Jul 28, 2019,22:56 Discharge Summary-Simple/Stand Consultations None Discharge Physical Examination Vitals & I&Os Vital Sign - Last 12Hours Date Time Temp Pulse Resp B/P (MAP) Pulse Ox O2 Delivery O2 Flow Rate FiO2 07/26/19 14:33 36.3 88 20 127/86 99 Room Air Hospital Course Was the Problem List Reviewed?: Yes See final discharge diagnosis. Discussion & Recommendations 23 yo F that presented with acute tooth pain and abscess. Patient was then found to have uncontrolled blood sugars. She has been buying insulin 70/30 at [facility] due to cost and has not seen a physician. She was set up with establish care appt with Nguyen and with dental appt at [facility]. Will have close f.u. Discharge Condition at discharge stable Instructions to patient/family Please see electronic discharge instructions given to patient. Discharge Medications Reviewed and agree with Discharge Medication list on patient's Discharge Instruction sheet [facility] STUDENT Jul 26, 2019 09:22 PING CEDILLO MD Jul 28, 2019 22:58
[2019-07-26 12:00] VITALS: BP 127/86
[2019-07-26] MEDS ORDERED: INSU100I14 SC (13:40)
[2019-07-26] MEDS ORDERED: INSU100I29 SC (13:40)
[2019-07-26] MEDS ORDERED: AMOX1TAB12 PO (13:40)
[2019-07-26] MEDS ORDERED: MTP25TSR PO (13:40)
--- NOTE | 2019-07-26 13:42 | Discharge Summary ---
Discharge formerly [facility] Reconcile Patient Problems Problems Reviewed?: Yes Discharge Medications New, Converted or Re-Newed RX: Transmitted to Pharmacy New Medications: Amoxicillin/Potassium Clav (Amox Tr-K Clv 875-125 mg Tab) 1 Each Tablet 875 MG PO BID for 10 Days, #20 TAB Metoprolol Succinate (Metoprolol Succinate) 25 Mg Tab.er.24h 25 MG PO DAILY, #30 TAB Changed Medications: Insulin Aspart (Novolog Flexpen) 300 Units/3 Ml Solution 15 UNITS SC AC for 30 Days, EA (Changed from: 25 UNITS) Insulin Detemir (Levemir Flextouch) 100 Unit/1 Ml Insuln.pen 20 UNITS SC BID for 30 Days, EA (Changed from: 35 UNITS) Discontinued Medications: Prochlorperazine Maleate (Compazine) 10 Mg Tablet 10 MG PO Q8H, #12 TAB 0 Refills Patient Instructions Goal/Follow Up Appt: You have an appt with Dr Cedillo's SENIOR JAVASCRIPT ENGINEER Sara Tejeda on ThursdayAug 02 @ 2PM Patient Instructions: - Make sure to lease picker your medications, they have been vouchered at [facility] Activity & Diet Discharge Diet: ADA Diet, Cardiac Diet Activity as Tolerated: Yes PING CEDILLO MD Jul 26, 2019 13:42
[2019-07-26 14:33] VITALS: BP 127/86
== END 2019-07-26 14:33 | disposition home or self-care (01) ==
LOC: EDUNIT# 19:50 → ER 19:51 → 4TH 22:30
PROVIDERS: ADMIT Family Medicine; ATTEND Family Medicine
DX: E11.65 Type 2 diabetes mellitus with hyperglycemia (principal); K13.79 Other lesions of oral mucosa; K04.7 Periapical abscess without sinus; K08.9 Disorder of teeth and supporting structures, unspecified; E66.01 Morbid (severe) obesity due to excess calories; I10 Essential (primary) hypertension; F31.9 Bipolar disorder, unspecified; F41.9 Anxiety disorder, unspecified; F42.9 Obsessive-compulsive disorder, unspecified; Z79.4 Long term (current) use of insulin; Z79.899 Other long term (current) drug therapy; Z88.1 Allergy status to other antibiotic agents; Z88.8 Allergy status to other drugs, medicaments and biological substances; Z68.43 Body mass index [BMI] 50.0-59.9, adult; Z90.89 Acquired absence of other organs; Z83.6 Family history of other diseases of the respiratory system; Z82.61 Family history of arthritis; Z80.0 Family history of malignant neoplasm of digestive organs
CPT/HCPCS: 36415; 80053; 81000; 82962; 85025; 87088; G0378

== ENCOUNTER 2020-09-23 20:23 | Emergency (ER) | payer SELFPAY ==
[~2020-09-23] VITALS: Ht 162.5 cm; Wt 136.0 kg
[~2020-09-23 20:23] MED LIST changes: +AMOX1TAB12 PO; -CLIN300C11 PO; +CLIN300C12 PO; +MTP25TSR PO
[2020-09-23] MEDS ORDERED: KETOROLAC 30 MG/ML VIAL IVP STA (20:43)
[2020-09-23 20:45] LABS: BILIRUBIN,URINE NEGATIVE (NEGATIVE); CLARITY,URINE SL CLOUDY; COLOR,URINE YELLOW; GLUCOSE, URINE (UA) 2+ (NEGATIVE); KETONES,URINE 2+ (NEGATIVE); LEUKOCYTE ESTERASE ,URINE NEGATIVE (NEGATIVE); NITRITE,URINE NEGATIVE (NEGATIVE); PH,URINE 6.5 (5-9); PROTEIN,URINE 3+ (NEGATIVE)
[2020-09-23] MEDS ORDERED: ONDANSETRON 4 MG/2 ML (SDV) Z0FRAN IVP ONE (20:45)
[2020-09-23] MEDS ORDERED: NS IV 1000 ML 1,000 ML IV SCH (20:45)
--- NOTE | 2020-09-23 20:48 | ED GU-Female ---
General Chief Complaint: Abdominal/GI Problems Stated Complaint: DEHYDRATED,PAIN IN LOWER ABDOMEN History of Present Illness Date Seen by Provider: Sep 23, 2020 Time Seen by Provider: 20:35 Initial Comments 25-year-old female presents for suprapubic abdominal pain for the last 2 days. She was diagnosed with a UTI and started on Keflex she has been taking medication as prescribed she last had ibuprofen at 1000 mg at 0100 today. She is taken no medication for pain today. She is diabetic but has not checked her blood sugar today or given herself insulin. She reports vomiting every time she tries to eat or drink today. She last vomited approximately 30 minutes prior to arrival. No history of recurrent UTIs. Timing/Duration: this morning, getting worse Severity/Quality: moderate Location: suprapubic Radiation: none Associated Symptoms: abdominal pain, dysuria; No fever/chills, No loss of bladder control, No lower back pain; nausea/vomiting, urinary frequency Allergies and Home Medications Allergies Coded Allergies: vancomycin (Unverified Allergy, Mild, 11/24/18) HIVES Home Medications Amoxicillin/Potassium Clav 1 Each Tablet, 875 MG PO BID Prescribed by: PING ARITA on 07/26/19 1340 Insulin Aspart 300 Units/3 Ml Solution, 15 UNITS SC AC Prescribed by: PING ARITA on 07/26/19 1340 Insulin Detemir 100 Unit/1 Ml Insuln.pen, 20 UNITS SC BID Prescribed by: PING ARITA on 07/26/19 1340 Metoprolol Succinate 25 Mg Tab.er.24h, 25 MG PO DAILY Prescribed by: PING ARITA on 07/26/19 1340 Patient Home Medication List Home Medication List Reviewed: Yes Review of Systems Review of Systems Constitutional: no symptoms reported, see HPI Genitourinary: see HPI, burning, dysuria, frequency All Other Systemes Reviewed Negative Unless Noted: Yes Past Smkbxbe-Khosmm-Rrptun Hx Past Med/Social Hx: Reviewed Nursing Past Med/Soc Hx Patient Social History Alcohol Beverage of Choice: Beer 2nd Hand Smoke Exposure: No Recent Hopitalizations: Yes (DC'D ON 11/17/18) Immunizations Up To Date Tetanus Booster (TDap): Unknown PED Vaccines UTD: Yes Date of Pneumonia Vaccine: Jul 09, 2015 Date of Influenza Vaccine: Apr 08, 2019 Seasonal Allergies Seasonal Allergies: Yes Past Medical History Surgeries: Yes (LEFT HIP, PLASTIC SURGERY TO FACE SECONDARY TO DOG BITE-"OVER 200 STITCHES") Orthopedic, Tonsillectomy Respiratory: No Cardiac: Yes Hypertension Neurological: No Reproductive Disorders: Yes (MISCARRIAGES) Female Reproductive Disorders: Denies Gastrointestinal: No Musculoskeletal: Yes (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 0.0oz. 158.596581py; 52.57 BMI Method:Stated General Appearance: WD/WN, no apparent distress HEENT: PERRL/EOMI, normal ENT inspection, TMs normal, pharynx normal Neck: non-tender, full range of motion, supple, normal inspection Cardiovascular: normal peripheral pulses, regular rate, rhythm Respiratory: chest non-tender, lungs clear, normal breath sounds Gastrointestinal: normal bowel sounds, soft, tenderness (Suprapubic) Extremities: normal range of motion, non-tender, normal inspection Neurologic/Psychiatric: no motor/sensory deficits, alert, normal mood/affect, oriented x 3 Skin: normal color, warm/dry Procedures/Interventions Suture Size: 4-0 Progress/Results/Core Measures Suspected Sepsis SIRS Temperature: Pulse: Respiratory Rate: Laboratory Tests 09/23/20 21:15: White Blood Count 23.5H Blood Pressure / Mean: Laboratory Tests 09/23/20 21:15: Creatinine 1.70H, Platelet Count 470H, Total Bilirubin 0.3 Results/Orders Lab Results Laboratory Tests Test 09/23/20 20:30 09/23/20 20:46 09/23/20 21:15 09/23/20 22:08 Range/Units Urine Color YELLOW Urine Clarity SL CLOUDY Urine pH 6.5 5-9 Urine Specific Marty 1.020 1.016-1.022 Urine Protein 3+ H NEGATIVE Urine Glucose (UA) 2+ H NEGATIVE Urine Ketones 2+ H NEGATIVE Urine Nitrite NEGATIVE NEGATIVE Urine Bilirubin NEGATIVE NEGATIVE Urine Urobilinogen 0.2 < = 1.0 MG/DL Urine Leukocyte Esterase NEGATIVE NEGATIVE Urine RBC (Auto) 2+ H NEGATIVE Urine RBC 2-5 H /HPF Urine WBC 10-25 H /HPF Urine Crystals PRESENT H /LPF Urine Amorphous Sediment RARE GUILLERMINA URATES H /LPF Urine Bacteria TRACE /HPF Urine Casts NONE /LPF Urine Mucus NEGATIVE /LPF Urine Culture Indicated YES Glucometer 314 H 301 H 70-110 MG/DL White Blood Count 23.5 H 4.3-11.0 10^3/uL Red Blood Count 4.23 3.80-5.11 10^6/uL Hemoglobin 10.5 L 11.5-16.0 g/dL Hematocrit 34 L 35-52 % Mean Corpuscular Volume 79 L 80-99 fL Mean Corpuscular Hemoglobin 25 25-34 pg Mean Corpuscular Hemoglobin Concent 31 L 32-36 g/dL Red Cell Distribution Width 13.2 10.0-14.5 % Platelet Count 470 H 130-400 10^3/uL Mean Platelet Volume 10.8 9.0-12.2 fL Immature Granulocyte % (Auto) 1 % Neutrophils (%) (Auto) 85 H 42-75 % Lymphocytes (%) (Auto) 8 L 12-44 % Monocytes (%) (Auto) 6 0-12 % Eosinophils (%) (Auto) 0 0-10 % Basophils (%) (Auto) 0 0-10 % Neutrophils # (Auto) 19.9 H 1.8-7.8 10^3/uL Lymphocytes # (Auto) 1.9 1.0-4.0 10^3/uL Monocytes # (Auto) 1.5 H 0.0-1.0 10^3/uL Eosinophils # (Auto) 0.1 0.0-0.3 10^3/uL Basophils # (Auto) 0.1 0.0-0.1 10^3/uL Immature Granulocyte # (Auto) 0.2 H 0.0-0.1 10^3/uL Neutrophils % (Manual) 83 % Lymphocytes % (Manual) 11 % Monocytes % (Manual) 6 % Blood Morphology Comment NORMAL Sodium Level 131 L 135-145 MMOL/L Potassium Level 3.9 3.6-5.0 MMOL/L Chloride Level 102 98-107 MMOL/L Carbon Dioxide Level 14 L 21-32 MMOL/L Anion Gap 15 H 5-14 MMOL/L Blood Urea Nitrogen 8 7-18 MG/DL Creatinine 1.70 H 0.60-1.30 MG/DL Estimat Glomerular Filtration Rate 44 BUN/Creatinine Ratio 5 Glucose Level 357 H 70-105 MG/DL Calcium Level 9.4 8.5-10.1 MG/DL Corrected Calcium 10.0 8.5-10.1 MG/DL Total Bilirubin 0.3 0.1-1.0 MG/DL Aspartate Amino Transf (AST/SGOT) 10 5-34 U/L Alanine Aminotransferase (ALT/SGPT) 13 0-55 U/L Alkaline Phosphatase 140 H 40-136 U/L Total Protein 7.4 6.4-8.2 GM/DL Albumin 3.2 3.2-4.5 GM/DL My Orders Orders - PATSY JENSEN Urine Bedside (09/23/20 20:28) Ua Culture If Indicated (09/23/20 20:28) Accucheck Stat ONCE (09/23/20 20:43) Cbc With Automated Diff (09/23/20 20:43) Comprehensive Metabolic Panel (09/23/20 20:43) Ed Iv/Invasive Line Start (09/23/20 20:43) Ns Iv 1000 Ml (Sodium Chloride 0.9%) (09/23/20 20:45) Ondansetron Injection (Zofran Injectio (09/23/20 20:45) Ketorolac Injection (Toradol Injection) (09/23/20 20:43) Urine Culture (09/23/20 20:30) Manual Differential (09/23/20 21:15) Ceftriaxone For Iv Use (Rocephin For I (09/23/20 22:00) Accucheck Stat ONCE (09/23/20 22:01) Medications Given in ED Current Medications Medications Dose Ordered Sig/Samuel Route Start Time Stop Time Status Last Admin Dose Admin Ceftriaxone Sodium 2000 mg/ Sterile Water 20 ml @ 240 mls/hr ONCE ONCE IV 09/23/20 22:00 09/23/20 22:04 DC 09/23/20 22:12 240 MLS/HR Ondansetron HCl 8 mg ONCE ONCE IVP 09/23/20 20:45 09/23/20 20:48 DC 09/23/20 21:20 8 MG Vital Signs/I&O Capillary Refill : Progress Note : Time: 20:35 Progress Note Patient seen and evaluated, will give IV fluids, Toradol 30 mg IV and labs 0 patient reports her symptoms to be improving. No further nausea or vomiting and pain is decreasing. Will give Rocephin 2 g IV 2154 Accucheck 301, patient administered 10 units of her fast acting insulin, she will check her blood sugar when she gets home and eat a small snack, then adjust her long acting insulin night dose. 2199 charge instructions and return precautions reviewed with the patient. All questions answered. Departure Impression Primary Impression: Urinary tract infection Qualified Codes: N30.01 - Acute cystitis with hematuria Additional Impressions: Nausea and vomiting Qualified Codes: R11.2 - Nausea with vomiting, unspecified Abdominal pain Qualified Codes: R10.30 - Lower abdominal pain, unspecified Type 1 diabetes Qualified Codes: E10.9 - Type 1 diabetes mellitus without complications Hyperglycemia Disposition: HOME, SELF-CARE Condition: Improved Departure-Patient Inst. Decision time for Depature: 22:10 Referrals: [facility] (PCP/Family) Primary Care Physician Patient Instructions: Urinary Tract Infection, Adult (DC) Add. Discharge Instructions: Clear liquid diet for the next 4 to 6 hours and then progressed to regular diet as tolerated. Continue to monitor your blood sugars every 2-3 hours and adjust your insulin as needed. Take antibiotics as prescribed. Alternate between Tylenol 650 mg and ibuprofen 600 mg every 4 hours for pain or fever. Follow-up with your primary care provider if symptoms are not improving or worsen. Return to the emergency department for new, urgent healthcare needs. All discharge instructions reviewed with patient and/or family. Voiced understanding. PATYS JENSEN Sep 23, 2020 20:48
[2020-09-23 20:58] LABS: AMORPHOUS SEDIMENT,UR RARE AMOR URATES /LPF; BACTERIA,URINE TRACE /HPF
[2020-09-23 21:23] LABS: BASOPHILS # (AUTO) 0.1 10^3/uL (0.0-0.1); BASOPHILS % (AUTO) 0 % (0-10); EOSINOPHILS # (AUTO) 0.1 10^3/uL (0.0-0.3); EOSINOPHILS % (AUTO) 0 % (0-10); HEMATOCRIT 34 % (35-52); HEMOGLOBIN 10.5 g/dL (11.5-16.0); LYMPHOCYTES # (AUTO) 1.9 10^3/uL (1.0-4.0); LYMPHOCYTES % (AUTO) 8 % (12-44); MEAN CORPUSCULAR HEMOGLOBIN 25 pg (25-34); MEAN CORPUSCULAR HGB CONC 31 g/dL (32-36); MEAN CORPUSCULAR VOLUME 79 fL (80-99); MEAN PLATELET VOLUME 10.8 fL (9.0-12.2); MONOCYTES # (AUTO) 1.5 10^3/uL (0.0-1.0); MONOCYTES % (AUTO) 6 % (0-12); NEUTROPHILS # (AUTO) 19.9 10^3/uL (1.8-7.8); NEUTROPHILS % (AUTO) 85 % (42-75); PLATELET COUNT 470 10^3/uL (130-400); WHITE BLOOD COUNT 23.5 10^3/uL (4.3-11.0)
[2020-09-23 21:39] LABS: ALBUMIN 3.2 GM/DL (3.2-4.5); BILIRUBIN,TOTAL 0.3 MG/DL (0.1-1.0); CALCIUM 9.4 MG/DL (8.5-10.1); CREATININE SERUM 1.7 MG/DL (0.60-1.30); POTASSIUM 3.9 MMOL/L (3.6-5.0); TOTAL PROTEIN 7.4 GM/DL (6.4-8.2)
[2020-09-23 21:50] LABS: LYMPHOCYTES % (MANUAL) 11 %; MONOCYTES % (MANUAL) 6 %; NEUTROPHILS % (MANUAL) 83 %; RBC MORPH NORMAL
[2020-09-23] MEDS ORDERED: cefTRIAXone FOR IV USE 2,000 MG in WATER (STERILE) FOR INJECTION 20 ML IV ONE (22:00)
[2020-09-23 22:23] VITALS: BP 160/104
== END 2020-09-23 22:23 | disposition home or self-care (01) ==
LOC: EDUNIT# 20:23 → ER 20:25
DX: E10.65 Type 1 diabetes mellitus with hyperglycemia (principal); N30.01 Acute cystitis with hematuria; I10 Essential (primary) hypertension; E66.01 Morbid (severe) obesity due to excess calories; Z88.1 Allergy status to other antibiotic agents; Z79.1 Long term (current) use of non-steroidal anti-inflammatories (NSAID); Z79.2 Long term (current) use of antibiotics
CPT/HCPCS: 36415; 80053; 81000; 82962; 84703; 85007; 85027; 87088

== ENCOUNTER 2021-01-28 08:48 | Emergency (ER) | payer SELFPAY ==
[~2021-01-28] VITALS: Ht 162.5 cm; Wt 136.1 kg
[~2021-01-28 08:48] MED LIST changes: -SULF1TAB35 PO; +SULF1TAB38 PO
--- NOTE | 2021-01-28 09:15 | ED General ---
General Chief Complaint: Cough/Cold/Flu Symptoms Stated Complaint: COVID EXPOSURE, DIARRHEA, SORE THROAT Nursing Triage Note: PT AMB TO RM 9 WITH COMPLAINT OF SOA, DIARRHEA. STATES WAS AROUND PERSON WHO TESTED POSITIVE FOR COVID OVER THE WEEKEND. Source of Information: Patient Exam Limitations: No Limitations History of Present Illness Date Seen by Provider: Jan 28, 2021 Time Seen by Provider: 09:05 Initial Comments Patient is a 25-year-old female who presents to the emergency room with a chief complaint of shortness of breath, dry cough, diarrhea. Patient states that her symptoms started 2 or 3 days ago. She states approximately a week prior she was exposed to somebody who tested positive last Thursday for Covid. Patient states that she has lost her sense of taste. She complains of a mild sore throat and congestion/runny nose. She denies any burning with urination, urinary frequency or urgency. No abnormal vaginal discharge. States her last menstrual cycle was about a week ago. She is an insulin-dependent diabetic and follows with [facility]. Last visit to [facility] was in October. Patient is also complaining of some left volar lateral foot pain. She states she stepped on a piece of glass a couple of days ago and thinks that she may not have gotten all of the glass out. All other review of systems reviewed and negative except as stated. Timing/Duration: 2-3 Days Associated Systoms: Cough, Shortness of Air, Other (Diarrhea) Allergies and Home Medications Allergies Coded Allergies: vancomycin (Unverified Allergy, Mild, 11/24/18) HIVES Home Medications Amoxicillin/Potassium Clav 1 Each Tablet, 875 MG PO BID Prescribed by: PING ARITA on 07/26/19 1340 Insulin Aspart 300 Units/3 Ml Solution, 15 UNITS SC AC Prescribed by: PING ARITA on 07/26/19 1340 Insulin Detemir 100 Unit/1 Ml Insuln.pen, 20 UNITS SC BID Prescribed by: PING ARITA on 07/26/19 1340 Metoprolol Succinate 25 Mg Tab.er.24h, 25 MG PO DAILY Prescribed by: PING ARITA on 07/26/19 1340 Patient Home Medication List Home Medication List Reviewed: Yes Review of Systems Review of Systems Constitutional: see HPI EENTM: nose congestion, throat pain Respiratory: cough, short of breath Cardiovascular: no symptoms reported Gastrointestinal: diarrhea Genitourinary: no symptoms reported : No Musculoskeletal: no symptoms reported Skin: no symptoms reported Psychiatric/Neurological: No Symptoms Reported All Other Systems Reviewed Negative Unless Noted: Yes Past Jefdfkk-Jnbpld-Xjrkpm Hx Patient Social History Tobacco Use?: No Use of E-Cig and/or Vaping dev: No Substance use?: Yes Substance type: Marijuana Alcohol Use?: No Pt feels they are or have been: No Immunizations Up To Date Tetanus Booster (TDap): Less than 5yrs PED Vaccines UTD: Yes Seasonal Allergies Seasonal Allergies: Yes Past Medical History Surgeries: Yes (LEFT HIP, PLASTIC SURGERY TO FACE SECONDARY TO DOG BITE-"OVER 200 STITCHES") Orthopedic, Tonsillectomy Respiratory: No Cardiac: Yes Hypertension Neurological: No Reproductive Disorders: Yes (MISCARRIAGES) Female Reproductive Disorders: Denies Gastrointestinal: No Musculoskeletal: Yes (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 0.0oz. 158.276697dy; 51.00 BMI Method:Stated General Appearance: No Apparent Distress, WD/WN Eyes: Bilateral Eye Normal Inspection, Bilateral Eye PERRL, Bilateral Eye EOMI HEENT: Pharynx Normal Neck: Normal Inspection Respiratory: Lungs Clear, Normal Breath Sounds, No Accessory Muscle Use, No Respiratory Distress Cardiovascular: Regular Rate, Rhythm Extremity: Normal Inspection, Normal Range of Motion, Non Tender, No Calf Tenderness Neurologic/Psychiatric: Alert, Oriented x3, No Motor/Sensory Deficits, Normal Mood/Affect Skin: Normal Color, Warm/Dry, Other (Band-Aid on the volar aspect midfoot l ateral, no open wounds are appreciated. No defects in the skin are appreciated.) Procedures/Interventions Suture Size: 4-0 Progress/Results/Core Measures Suspected Sepsis SIRS Temperature: Pulse: 102 Respiratory Rate: 20 Blood Pressure 176 /125 Mean: 142 Results/Orders Lab Results Laboratory Tests Test 01/28/21 09:01 01/28/21 09:12 Range/Units SARS-CoV-2 RNA (RT-PCR) Not Detected Not Detecte Glucometer 438 *H 70-110 MG/DL My Orders Orders - ANDRES SERRANO MD Accucheck Stat ONCE (01/28/21 09:09) Covid 19 Inhouse Test (01/28/21 09:09) Urine Bedside (01/28/21 09:09) Vital Signs/I&O 01/28/21 01/28/21 09:00 09:00 Temp 37.1 Pulse 102 Resp 20 B/P (MAP) 176/125 (142) Pulse Ox 98 O2 Delivery Room Air Room Air Capillary Refill : Less Than 3 Seconds Blood Pressure Mean: 142 Progress Note : Time: 10:02 Progress Note Patient will take some of her insulin when she gets to her car on her way home tomorrow, she declines insulin here in the emergency department. Bedside test is negative. She also declines her x-ray at this time. Patient is counseled extensively on the benefits of Covid vaccination and states that she is interested actually getting a vaccine. I encouraged her to call [facility]. Patient also states she is not currently taking any blood pressure meds because of side effects to her metoprolol. I have again encouraged the patient to talk to her primary care physician about changing medications for her high blood pressure, discussing the risks of ongoing high blood pressure and uncontrolled diabetes. Patient verbalizes understanding. She is also encouraged to stay home until her symptoms improve. Drink plenty of fluids. Return to the emergency room for reevaluation if her symptoms are getting worse and possibly reCovid tested. All questions are sought and answered. Patient is stable for discharge. Departure Impression Primary Impression: Diabetes Qualified Codes: E10.65 - Type 1 diabetes mellitus with hyperglycemia Additional Impressions: Viral syndrome Essential hypertension Medical non-compliance Disposition: 01 HOME, SELF-CARE Condition: Stable (ERASED) Departure-Patient Inst. Decision time for Depature: 10:06 Referrals: [facility] (PCP/Family) Primary Care Physician Patient Instructions: Viral Syndrome (DC) Add. Discharge Instructions: Drink plenty of fluids to stay well-hydrated. Use bjrl-rds-lvatgwy Imodium for diarrhea. Also ngtv-hgv-qiwrqsx medications for cough and congestion. Use your insulin as directed. Follow-up with [facility] regarding your high blood pressure. Quarantine at home until your symptoms have improved. If you have any worsening symptoms of shortness of breath or cough please get retested for Covid. Come back to the emergency room for any worsening. Work/School Note: Work Release Form Date Seen in the Emergency Department: Jan 28, 2021 Return to Work: Jan 31, 2021 ANDRES SERRANO MD Jan 28, 2021 09:15
[2021-01-28 10:19] VITALS: BP 125/93
== END 2021-01-28 10:19 | disposition home or self-care (01) ==
LOC: EDUNIT# 08:48 → ER 08:50
DX: E11.9 Type 2 diabetes mellitus without complications (principal); I10 Essential (primary) hypertension; B34.9 Viral infection, unspecified; E66.01 Morbid (severe) obesity due to excess calories; Z91.19 Patient's noncompliance with other medical treatment and regimen; Z20.822 Contact with and (suspected) exposure to COVID-19; Z68.43 Body mass index [BMI] 50.0-59.9, adult; Z79.4 Long term (current) use of insulin; Z79.899 Other long term (current) drug therapy
CPT/HCPCS: 82947; 84703; 87636

== ENCOUNTER 2022-06-03 18:34 | Emergency (ER) | payer SELFPAY ==
[~2022-06-03] VITALS: Ht 162.5 cm; Wt 134.7 kg
[~2022-06-03 18:34] MED LIST changes: +CLIN-144 PO; -CLIN300C12 PO
--- NOTE | 2022-06-03 19:14 | ED Fall/Injury ---
General Chief Complaint: Trauma-Non Activation Stated Complaint: FALL, LT HAND PAIN, LT HIP PAIN Nursing Triage Note: PT ARRIVED POV WITH COMPLAINTS OF LEFT HIP AND LEFT HAND PAIN AFTER SHE FELL 6 DAYS AGO. Source: patient Exam Limitations: no limitations (BHAVYA CEJA APRN) History of Present Illness Date Seen by Provider: Jun 03, 2022 Time Seen by Provider: 19:02 Initial Comments This is a well appearing 26 yo female with history of Ncqs-Tldif-Uqxejlg disease Who presented the ER via POV with complaints of left fourth finger pain and left hip pain. States that she was at home and slipped and fell in her kitchen last Thursday, landed on her left side. No injury to head or neck, no loss of consciousness. Has had persistent pain in her left hip and swelling of her left fourth finger. Has taken Tylenol and ibuprofen, both last at 1300 this afternoon. She is comfortable at this time and denies additional pain relief. Denies numbness, tingling, loss of sensation. (BHAVYA CEJA APRN) Allergies and Home Medications Allergies Coded Allergies: vancomycin (Unverified Allergy, Mild, 11/24/18) HIVES Patient Home Medication List Home Medication List Reviewed: Yes (BHAVYA CEJA APRN) Amoxicillin/Potassium Clav (Amox Tr-K Clv 875-125 mg Tab) 1 Each Tablet, 875 MG PO BID Prescribed by: PING ARITA on 07/26/19 1340 Insulin Aspart (Novolog Flexpen) 300 Units/3 Ml Solution, 15 UNITS SC AC Prescribed by: PING ARITA on 07/26/19 1340 Insulin Detemir (Levemir Flextouch) 100 Unit/1 Ml Insuln.pen, 20 UNITS SC BID Prescribed by: PING ARITA on 07/26/19 1340 Metoprolol Succinate (Metoprolol Succinate) 25 Mg Tab.er.24h, 25 MG PO DAILY Prescribed by: PING ARITA on 07/26/19 1340 Review of Systems Review of Systems Constitutional: see HPI (BHAVYA CEJA APRN) Past Cnyecno-Mhsvdk-Gcdwky Hx Patient Social History Tobacco Use?: No Substance use?: Yes Substance type: Marijuana Alcohol Use?: No (BHAVYA CEJA APRN) Immunizations Up To Date Tetanus Booster (TDap): Less than 5yrs PED Vaccines UTD: Yes (BHAVYA CEJA APRN) Seasonal Allergies Seasonal Allergies: Yes (BHAVYA CEJA APRN) Past Medical History Surgeries: Yes (LEFT HIP, PLASTIC SURGERY TO FACE SECONDARY TO DOG BITE-"OVER 200 STITCHES") Orthopedic, Tonsillectomy Respiratory: No Cardiac: Yes Hypertension Neurological: No Reproductive Disorders: Yes (MISCARRIAGES) Female Reproductive Disorders: Denies Gastrointestinal: No Musculoskeletal: Yes (Rbeo-bodpr-wnlegim 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) Endocrine: Yes (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, MORBID OBESTIY) Diabetes, Insulin dep HEENT: No Tonsilitis Cancer: No Psychosocial: Yes Anxiety, Bipolar, Depression Integumentary: No Blood Disorders: No Adverse Reaction/Blood Tranf: No (BHAVYA CEJA APRN) Family Medical History Alcoholism Arthritis Asthma Cardiovascular disease Colon cancer Diabetes mellitus Hypertension Psychosocial problem Respiratory disorder Visual disorder Diabetes (BHAVYA CEJA APRN) Physical Exam Vital Signs Vital Signs - First Documented 06/03/22 18:52 Pulse 97 B/P (MAP) 179/130 (146) Pulse Ox 99 O2 Delivery Room Air (ASHLEY,SHEELA K DO) Vital Signs Capillary Refill : (BHAVYA CEJA APRN) Height, Weight, BMI Height: 5'4.00" Weight: 350lbs. 0.0oz. 158.832078rs; 51.00 BMI Method:Stated General Appearance: WD/WN, no apparent distress HEENT: PERRL/EOMI, normal ENT inspection Neck: full range of motion, normal inspection Respiratory: no accessory muscle use, respiratory distress Extremities: normal range of motion, normal capillary refill, other (left 4th finger swelling, bruising, tenderness, cap refill <2 sec. Neurovascular intact. ) Neurologic/Psychiatric: no motor/sensory deficits, alert, normal mood/affect, oriented x 3 Skin: normal color, warm/dry (BHAVYA CEJA APRN) Jared Coma Score Best Eye Response: (4) Open Spontaneously Best Verbal Response: (5) Oriented Best Motor Response: (6) Obeys Commands Jared Total: 15 (BHAVYA CEJA APRN) Procedures/Interventions Suture Size: 4-0 (BHAVYA CEJA APRN) Progress/Results/Core Measures Results/Orders Vital Signs/I&O 12/27/22 12/27/22 18:52 20:02 Pulse 97 B/P (MAP) 179/130 (146) 154/109 Pulse Ox 99 O2 Delivery Room Air (SHEELA RAMIREZ DO) Blood Pressure Mean: 146 Progress Progress Note : Progress Note Patient examined in no acute distress at this time. She has a history of Vhnd-Spanv-Ybfwgdl of her left hip and would like evaluated for fractures. Additionally has swelling, bruising and discomfort of her left fourth finger. Will obtain x-ray's of affected sites. Baseball splint applied to left fourth finger. We will have her follow-up with PCP if she has any additional or persistent discomfort of her left hip. She can always return to the ER for any new, concerning or worsening symptoms. Reviewed discharge plan of care and she is agreeable with plan. No concerns voiced at time of discharge. (BHAVYA CEJA APRN) Diagnostic Imaging Diagonstic Imaging: Xray Comments [facility], [place] NAME: ROBERT SHANE [facility] REC#: [id number] PT STATUS: REG ER : 1995 PHYSICIAN: BHAVYA CEJA APRN ADMIT DATE: 06/03/22/ER Signed Date of Exam:06/03/22 FINGER(S) EXAMINATION: Left finger radiograph EXAM DATE: 06/03/2022 7:22 PM COMPARISON: None available. HISTORY: Left 4th finger swellinlg/pain, fall TECHNIQUE: 3 views FINDINGS: There is linear cortical irregularity along the distal most aspect of the 4th proximal phalanx seen only on the oblique images. There is no other acute fracture, dislocation, or destructive osseous process. The joint spaces are normal. The soft tissues are normal. IMPRESSION: 1. Cortical irregularity along the distal end of the proximal 4th phalanx which could represent a tiny avulsion fracture. No other acute osseous abnormality. Dictated by: Dictated on workstation # [id number] Dict: 06/03/221923 Trans: 06/03/22 1950 [facility] [id number] Interpreted by: OLIVIA DYER DO Electronically signed by: OLIVIA DYER DO 12/27/22 1950 Comments [facility] [place] [place] NAME: ROBERT SHANE [facility] REC#: [id number] PT STATUS: REG ER : 1995 PHYSICIAN: BHAVYA CEJA APRN ADMIT DATE: 06/03/22/ER Signed Date of Exam:06/03/22 HIP, LEFT, 2 VIEWS INDICATION: Left hip pain, fall. Time of Exam: 7:20 PM Correlation is made with CT study from 11/24/2018. There is chronic deformity of the left femoral head which does show some flattening of the articular surface. Femoral acetabular alignment is normal. Femoral head and neck are intact. Rami are intact. No fractures are seen. IMPRESSION: Chronic changes in the left hip. No acute abnormality is detected. Dictated by: Dictated on workstation # [id number] Dict: 06/03/221926 Trans: 06/03/221943 [facility] [id number] Interpreted by: CRISTOBAL EARL MD Electronically signed by: CRISTOBAL EARL MD 06/03/221943 (BHAVYA CEJA APRN) Departure Impression Primary Impression: Finger fracture, left Disposition: 01 HOME, SELF-CARE Condition: Improved Departure-Patient Inst. Decision time for Depature: 19:49 (BHAVYA CEJA APRN) Referrals: PING ARITA MD (PCP/Family) Primary Care Physician Patient Instructions: Finger Fracture ED Add. Discharge Instructions: Plan: 1. Use ice 20 minutes at a time to reduce swelling and pain, do this 3-4 times a day. 2. You can continue to alternate Tylenol and ibuprofen as directed per package for pain. 3. Keep finger in splint for next 4 weeks, follow-up with your primary care provider. 4. Return to the ER for any new, concerning, worsening symptoms All discharge instructions reviewed with patient and/or family. Voiced understanding. ATTENDING PHYSICIAN NOTE: I WAS PHYSICALLY PRESENT ER PHYSICIAN, BUT I WAS NOT INVOLVED IN ANY DECISION MAKING OR ANY CARE OF THIS PATIENT AND I AM NOT COLLABORATING PHYSICIAN. (SHEELA RAMIREZ DO) BHAVYA CEJA APRN Jun 03, 2022 19:14 SHEELA RAMIREZ DO Jun 04, 2022 05:30
--- NOTE | 2022-06-03 19:29 | Diagnostic Imaging Report ---
EXAMINATION: Left finger radiograph EXAM DATE: 06/03/2022 7:22 PM COMPARISON: None available. HISTORY: Left 4th finger swellinlg/pain, fall TECHNIQUE: 3 views FINDINGS: There is linear cortical irregularity along the distal most aspect of the 4th proximal phalanx seen only on the oblique images. There is no other acute fracture, dislocation, or destructive osseous process. The joint spaces are normal. The soft tissues are normal. IMPRESSION: 1. Cortical irregularity along the distal end of the proximal 4th phalanx which could represent a tiny avulsion fracture. No other acute osseous abnormality. Dictated by: Dictated on workstation # [id number]
--- NOTE | 2022-06-03 19:32 | Diagnostic Imaging Report ---
INDICATION: Left hip pain, fall. Time of Exam: 7:20 PM Correlation is made with CT study from 11/24/2018. There is chronic deformity of the left femoral head which does show some flattening of the articular surface. Femoral acetabular alignment is normal. Femoral head and neck are intact. Rami are intact. No fractures are seen. IMPRESSION: Chronic changes in the left hip. No acute abnormality is detected. Dictated by: Dictated on workstation # [id number]
[2022-06-03 20:02] VITALS: BP 154/109
== END 2022-06-03 20:00 | disposition home or self-care (01) ==
LOC: EDUNIT# 18:34 → ER 18:36
DX: S62.635A Displaced fracture of distal phalanx of left ring finger, initial encounter for closed fracture (principal); M25.552 Pain in left hip; E66.01 Morbid (severe) obesity due to excess calories; Z68.43 Body mass index [BMI] 50.0-59.9, adult; Z28.310 Unvaccinated for COVID-19; W01.0XXA Fall on same level from slipping, tripping and stumbling without subsequent striking against object, initial encounter; Y92.000 Kitchen of unspecified non-institutional (private) residence as the place of occurrence of the external cause
CPT/HCPCS: 73140; 73502